=== PATIENT | male | born 1960 | race Caucasian/White ===

== ENCOUNTER 2020-08-01 11:00 | Outpatient (RCR) | payer BC | END 2020-09-20 09:00 | disposition home or self-care (01) | PROVIDERS: ATTEND Orthopaedic Surgery | DX: Z96.651 Presence of right artificial knee joint (principal) ==

== ENCOUNTER 2020-11-23 17:56 | Emergency (ER) | payer BC ==
[~2020-11-23] VITALS: Ht 170.1 cm; Wt 102.0 kg
[2020-11-23] MEDS ORDERED: LACTATED RINGERS 1,000 ML IV STA (18:58)
[2020-11-23] MEDS ORDERED: IBUPROFEN 800 MG (MOTRIN) TAB PO STA (18:58)
[2020-11-23] MEDS ORDERED: ACETAMINOPHEN 500 MG TAB (TYLENOL) PO STA (18:58)
[2020-11-23] MEDS ORDERED: ONDANSETRON 4 MG/2 ML (SDV) Z0FRAN IVP ONE (19:00)
[2020-11-23 19:12] LABS: BASOPHILS % (AUTO) 0 % (0-10); EOSINOPHILS % (AUTO) 0 % (0-10); HEMATOCRIT 44 % (40-54); HEMOGLOBIN 14.7 g/dL (13.3-17.7); LYMPHOCYTES # (AUTO) 0.7 10^3/uL (1.0-4.0); LYMPHOCYTES % (AUTO) 14 % (12-44); MEAN CORPUSCULAR HEMOGLOBIN 28 pg (25-34); MEAN CORPUSCULAR HGB CONC 33 g/dL (32-36); MEAN CORPUSCULAR VOLUME 85 fL (80-99); MEAN PLATELET VOLUME 9.6 fL (9.0-12.2); MONOCYTES # (AUTO) 0.2 10^3/uL (0.0-1.0); MONOCYTES % (AUTO) 4 % (0-12); NEUTROPHILS # (AUTO) 3.8 10^3/uL (1.8-7.8); NEUTROPHILS % (AUTO) 81 % (42-75); PLATELET COUNT 174 10^3/uL (130-400); WHITE BLOOD COUNT 4.7 10^3/uL (4.3-11.0)
--- NOTE | 2020-11-23 19:17 | ED Respiratory ---
General Chief Complaint: Cough/Cold/Flu Symptoms Stated Complaint: COVID POSITIVE/COUGH/NAUSEA Source: patient History of Present Illness Date Seen by Provider: Nov 23, 2020 Time Seen by Provider: 18:47 Initial Comments PT ARRIVES VIA POV FROM HOME PT STATES HE BEGAN GETTING SICK WITH COVID-19 SYMPTOMS ON Thursday11/16/20 TESTED + FOR COVID-19 ON Thursday11/20/20 AT [facility] C/O NON-PRODUCTIVE COUGH C/O FEVER UP TO 104- DOES NOT THINK HE HAS HAD FEVER TODAY--TEMP IS 101 ON ARRIV AL HERE. HAS NOT TAKEN ANYTHING FOR FEVER OR OTHER SYMPTOMS TODAY C/O NAUSEA, NO VOMITING C/O DIARRHEA X 2-3 TODAY NO ABDOMINAL PAIN PT IS ABLE TO DRINK LIQUIDS OK PT IS VOIDING A NORMAL AMOUNT C/O BODY ACHES C/O FATIGUE NO SORE THROAT NO SHORTNESS OF BREATH NO CHEST PAIN NO LOS OF TASTE/SMELL NO HEADACHE NO SORE THROAT SON HAS BEEN VISITING FROM [place], AND HE GOT SICK FIRST, THEN PT GOT SICK AND THEN PT'S GOT SICK SON AND BOTH TESTED + FOR COVID-19 WELL PT HAS NOT HAD COVID-19 VACCINE HAS NOT SOUGHT CARE UNTIL TONIGHT SYMPTOMS NO DIFFERENT TONIGHT IN ANY WAY STATES "JUST NOT GETTING OVER IT" HAS NOT BEEN TAKING ANYTHING FOR COUGH ONLY MEDICATIONS HE HAS TAKE AT ALL HAVE BEEN TYLENOL And MOTRIN ONLY CHRONIC ILLNESS IS HYPOTHYROIDISM PCP: ISHAN Allergies and Home Medications Allergies Coded Allergies: No Known Drug Allergies (Unverified , 11/23/20) Home Medications Azithromycin 500 Mg Tablet, 500 MG PO DAILY Prescribed by: GRETA GUZMAN on 11/23/202032 Benzonatate 100 Mg Capsule, 200 MG PO TID Prescribed by: GRETA GUZMAN on 11/23/202032 Cefdinir 300 Mg Capsule, 300 MG PO BID Prescribed by: GRETA GUZMAN on 11/23/202032 Guaifenesin/Dextromethorphan 1 Each Tbmp.12hr, 1 EACH PO BID Prescribed by: GRETA GUZMAN on 11/23/202032 Ondansetron 4 Mg Tab.rapdis, 4 MG PO Q4H Prescribed by: GRETA GUZMAN on 11/23/202032 Patient Home Medication List Home Medication List Reviewed: Yes Review of Systems Review of Systems Constitutional: see HPI, chills, diaphoresis, fever, malaise EENTM: see HPI, nose congestion Respiratory: see HPI, cough; No short of breath, No wheezing Cardiovascular: no symptoms reported; No chest pain, No edema, No palpitations, No syncope Gastrointestinal: see HPI; No abdominal pain; diarrhea, loss of appetite, n ausea; No vomiting Genitourinary: no symptoms reported; No decreased output Musculoskeletal: see HPI (BODY ACHES) Skin: no symptoms reported; No rash Psychiatric/Neurological: No Symptoms Reported Hematologic/Lymphatic: No Symptoms Reported Immunological/Allergic: no symptoms reported Past Pgkufua-Wbfeqy-Ctlljw Hx Patient Social History Tobacco Use?: No Smoking Status: Never a Smoker Smokeless Tobacco Frequency: Never a User Use of E-Cig and/or Vaping Elpidio: Never a User Substance use?: No Alcohol Use?: No Past Medical History Surgery/Hospitalization HX: RIGHT TOTAL KNEE REPLACEMENT Surgeries: Yes Joint Replacement, Orthopedic Respiratory: Yes (USED TO GET BRONCHITIS AND HAD PNEUMONIA ONCE--YEARS AGO) Cardiac: No Neurological: No Reproductive Disorders: Yes (E.D.) Genitourinary: Yes (E.D.) Gastrointestinal: No Musculoskeletal: Yes (RIGHT TOTAL KNEE REPLACEMENT) Arthritis Endocrine: Yes Hypothyroidsim HEENT: No Cancer: No Psychosocial: No Integumentary: No Blood Disorders: No Physical Exam Vital Signs - First Documented 11/23/20 18:45 Temp 38.8 Pulse 95 Resp 22 B/P (MAP) 109/67 (81) Pulse Ox 95 O2 Delivery Room Air Capillary Refill : Height: '" Weight: lbs. oz. kg; BMI Method: General Appearance: WD/WN, no apparent distress, other (DOES NOT APPEAR ILL OR TO BE IN ANY DISCOMFORT OR DISTRESS. NO COUGH NOTED. 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, no motor/sensory deficits, alert, normal mood/affect, oriented x 3 Skin: normal color, warm/dry; No rash Focused Exam Lactate Level 11/23/20 18:55: Lactic Acid Level 0.75 Lactic Acid Level Laboratory Tests Test 11/23/20 18:55 Lactic Acid Level 0.75 MMOL/L (0.50-2.00) Progress/Results/Core Measures Suspected Sepsis SIRS Temperature: Pulse: Respiratory Rate: Laboratory Tests 11/23/20 18:55: White Blood Count 4.7 Blood Pressure / Mean: 11/23/20 18:55: Lactic Acid Level 0.75 Laboratory Tests 11/23/20 18:55: Creatinine 0.97, INR Comment 1.0, Platelet Count 174, Total Bilirubin 0.3 Results/Orders Lab Results Laboratory Tests Test 11/23/20 18:55 Range/Units White Blood Count 4.7 4.3-11.0 10^3/uL Red Blood Count 5.22 4.30-5.52 10^6/uL Hemoglobin 14.7 13.3-17.7 g/dL Hematocrit 44 40-54 % Mean Corpuscular Volume 85 80-99 fL Mean Corpuscular Hemoglobin 28 25-34 pg Mean Corpuscular Hemoglobin Concent 33 32-36 g/dL Red Cell Distribution Width 14.5 10.0-14.5 % Platelet Count 174 130-400 10^3/uL Mean Platelet Volume 9.6 9.0-12.2 fL Immature Granulocyte % (Auto) 1 % Neutrophils (%) (Auto) 81 H 42-75 % Lymphocytes (%) (Auto) 14 12-44 % Monocytes (%) (Auto) 4 0-12 % Eosinophils (%) (Auto) 0 0-10 % Basophils (%) (Auto) 0 0-10 % Neutrophils # (Auto) 3.8 1.8-7.8 10^3/uL Lymphocytes # (Auto) 0.7 L 1.0-4.0 10^3/uL Monocytes # (Auto) 0.2 0.0-1.0 10^3/uL Eosinophils # (Auto) 0.0 0.0-0.3 10^3/uL Basophils # (Auto) 0.0 0.0-0.1 10^3/uL Immature Granulocyte # (Auto) 0.0 0.0-0.1 10^3/uL Erythrocyte Sedimentation Rate 20 0-30 MM/HR Prothrombin Time 13.0 12.2-14.7 SEC INR Comment 1.0 0.8-1.4 Activated Partial Thromboplast Time 38 H 24-35 SEC D-Dimer 2.08 H 0.00-0.49 UG/ML Sodium Level 133 L 135-145 MMOL/L Potassium Level 4.0 3.6-5.0 MMOL/L Chloride Level 103 98-107 MMOL/L Carbon Dioxide Level 22 21-32 MMOL/L Anion Gap 8 5-14 MMOL/L Blood Urea Nitrogen 12 7-18 MG/DL Creatinine 0.97 0.60-1.30 MG/DL Estimat Glomerular Filtration Rate 78 BUN/Creatinine Ratio 12 Glucose Level 124 H 70-105 MG/DL Lactic Acid Level 0.75 0.50-2.00 MMOL/L Calcium Level 8.1 L 8.5-10.1 MG/DL Corrected Calcium 8.3 L 8.5-10.1 MG/DL Magnesium Level 2.2 1.6-2.4 MG/DL Total Bilirubin 0.3 0.1-1.0 MG/DL Aspartate Amino Transf (AST/SGOT) 46 H 5-34 U/L Alanine Aminotransferase (ALT/SGPT) 23 0-55 U/L Alkaline Phosphatase 62 40-136 U/L Lactate Dehydrogenase 406 H 125-220 U/L Total Creatine Kinase 331 H 30-200 U/L Creatine Kinase MB 1.4 <6.6 NG/ML Myoglobin 202.7 H 10.0-92.0 NG/ML Troponin I < 0.028 <0.028 NG/ML C-Reactive Protein High Sensitivity 5.98 H 0.00-0.50 MG/DL B-Type Natriuretic Peptide 12.4 <100.0 PG/ML Total Protein 6.9 6.4-8.2 GM/DL Albumin 3.7 3.2-4.5 GM/DL Procalcitonin 0.07 <0.10 NG/ML My Orders Orders - GRETA GUZMAN DO Ed Iv/Invasive Line Start (11/23/20 18:45) Ekg Tracing (11/23/20 18:45) O2 (11/23/20 18:45) Monitor-Rhythm Ecg Trace Only (11/23/20 18:45) BNP (11/23/20 18:45) Cbc With Automated Diff (11/23/20 18:45) Comprehensive Metabolic Panel (11/23/20 18:45) Creatine Kinase (11/23/20 18:45) Creatine Kinase Mb (11/23/20 18:45) Hs C Reactive Protein (11/23/20 18:45) Fibrin Degradation Products (11/23/20 18:45) Lactic Acid Analyzer (11/23/20 18:45) Magnesium (11/23/20 18:45) Protime With Inr (11/23/20 18:45) Partial Thromboplastin Time (11/23/20 18:45) Blood Culture (11/23/20 18:45) Erythrocyte Sedimentation Rate (11/23/20 18:45) Myoglobin Serum (11/23/20 18:45) Troponin I (11/23/20 18:45) Chest 1 View, Ap/Pa Only (11/23/20 18:45) Procalcitonin (Pct) (11/23/20 18:45) LDH (11/23/20 18:45) Acetaminophen Tablet (Tylenol Tablet) (11/23/20 18:58) Ibuprofen Tablet (Motrin Tablet) (11/23/20 18:58) Ondansetron Injection (Zofran Injectio (11/23/20 19:00) Lactated Ringers (Lr 1000 Ml Iv Solution (11/23/20 18:58) Ed Iv/Invasive Line Start (11/23/20 18:58) Ct Angio Chest W (11/23/20 19:39) Ceftriaxone (Rocephin) (11/23/20 20:15) Azithromycin Tablet (Zithromax Tablet) (11/23/20 20:15) Dexamethasone Injection (Decadron Inje (11/23/20 20:15) Ceftriaxone (Rocephin) (11/23/20 20:45) Lidocaine 1% Inj 20 Ml (Xylocaine 1% Inj (11/23/20 20:45) Dexamethasone Tablet (Decadron Tablet) (11/23/20 20:45) Dexamethasone Tablet (Decadron Tablet) (11/23/20 20:44) Ceftriaxone (Rocephin) (11/23/20 20:44) Lidocaine 1% Inj 20 Ml (Xylocaine 1% Inj (11/23/20 20:44) Medications Given in ED Current Medications Medications Dose Ordered Sig/Myla Route Start Time Stop Time Status Last Admin Dose Admin Azithromycin 500 mg ONCE ONCE PO 11/23/20 20:15 11/23/20 20:16 DC 11/23/20 20:49 500 MG Ceftriaxone Sodium 1,000 mg ONCE ONCE IM 11/23/20 20:45 11/23/20 20:46 DC 11/23/20 20:50 1,000 MG Lidocaine HCl 2.1 ml ONCE ONCE INJ 11/23/20 20:45 11/23/20 20:46 DC 11/23/20 20:50 2.1 ML Ondansetron HCl 4 mg ONCE ONCE IVP 11/23/20 19:00 11/23/20 19:01 DC 11/23/20 19:07 4 MG Vital Signs/I&O 11/23/20 11/23/20 11/23/20 18:45 19:07 20:59 Temp 38.8 38.8 Pulse 95 84 Resp 22 20 B/P (MAP) 109/67 (81) 98/65 (81) Pulse Ox 95 94 O2 Delivery Room Air Capillary Refill : Progress Note : Progress Note PLACED IN ISOLATION ROOM] PPE WORN AT ALL TIMES NO DETERIORATION IN PT'S CONDITION DURING ER STAY PT FEELS COMFORTABLE GOING HOME PT WOULD BE A CANDIDATE FOR REGEN-COV, BASED ON AGE AND BMI > 25, AND HE IS AGREEABLE TO THIS. OUTPATIENT ORDERS WRITTEN. ECG Initial ECG Impression Date: Nov 23, 2020 Initial ECG Impression Time: 19:11 Initial ECG Rate: 91 Initial ECG Rhythm: Normal Sinus Initial ECG Comparisson: No Previous ECG Available Diagnostic Imaging Comments CXR--PER RADIOLOGIST REPORT IMPRESSION: 1. Patchy bilateral multifocal lung consolidation which would be consistent with provided history of Covid 19 pneumonia/pneumoni CT CHEST ANGIOGRAM--PER RADIOLOGIST REPORT AT 2017 CT CHEST. 1. Multifocal patchy bilateral lung consolidation consistent with provided history of Covid pneumonia/pneumonitis. 2. No identified pulmonary embolus. Reviewed: Reviewed by Me Departure Impression Primary Impression: Pneumonia due to COVID-19 virus Disposition: HOME, SELF-CARE Condition: Stable Departure-Patient Inst. Referrals: SRINIVAS MILTON MD (PCP) Primary Care Physician [facility] [place] Instructions: REGEN-COV (casirivimab and imdevimab) FDA Fact Sheet, COVID-19 ED, Preventing the Spread of an Infectious Disease, Atypical Pneumonia (Mycoplasma and Viral) (DC), Recovery After COVID-19 Add. Discharge Instructions: LOTS OF CLEAR LIQUIDS--WATER, BROTH, JELLO, GATORADE TYLENOL 1 GRAM /MOTRIN 800 MG 4 TIMES A DAY NEEDED FOR PAIN OR FEVER CALL ON THURSDAY TO SCHEDULE REGEN-COV INFUSION RETURN TO ER IF YOUR SYMPTOMS WORSEN FOLLOW UP WITH YOUR DR NEXT WEEK FOR FURTHER CARE QUARANTINE YOURSELF AND ALL HOUSEHOLD MEMBERS FOR 2 WEEKS All discharge instructions reviewed with patient and/or family. Voiced understanding. Scripts Guaifenesin/Dextromethorphan (Mucinex Dm ER 1,200-60 mg Tab) 1 Each Tbmp.12hr 1 EACH PO BID, #20 EA Prov: GRETA GUZMAN DO 11/23/20 Benzonatate (TESSALON PERLES) 100 Mg Capsule 200 MG PO TID, #30 CAP Prov: GRETA GUZMAN DO 11/23/20 Ondansetron (Ondansetron Odt) 4 Mg Tab.rapdis 4 MG PO Q4H for Nausea/Vomiting, #10 TAB Prov: GRETA GUZMAN DO 11/23/20 Azithromycin (Zithromax) 500 Mg Tablet 500 MG PO DAILY for 5 Days, #5 TAB Prov: GRETA GUZMAN DO 11/23/20 Cefdinir (Cefdinir) 300 Mg Capsule 300 MG PO BID, #20 CAP Prov: GRETA GUZMAN DO 11/23/20 GRETA GUZMAN DO Nov 23, 2020 19:17
[2020-11-23 19:23] LABS: FIBRIN DEGRADATION PRODUCTS 2.08 UG/ML (0.00-0.49)
[2020-11-23 19:29] LABS: ERYTHROCYTE SEDIMENTATION RATE 20 MM/HR (0-30)
[2020-11-23 19:36] LABS: ALANINE AMINOTRANSFERASE 23 U/L (0-55); ALBUMIN 3.7 GM/DL (3.2-4.5); ALKALINE PHOSPHATASE 62 U/L (40-136); BILIRUBIN,TOTAL 0.3 MG/DL (0.1-1.0); BUN/CREATININE RATIO 12; CALCIUM 8.1 MG/DL (8.5-10.1); CARBON DIOXIDE 22 MMOL/L (21-32); CHLORIDE 103 MMOL/L (98-107); CREATINE KINASE 331 U/L (30-200); CREATININE SERUM 0.97 MG/DL (0.60-1.30); GFR ESTIMATED 78; GLUCOSE 124 MG/DL (70-105); SODIUM 133 MMOL/L (135-145); TOTAL PROTEIN 6.9 GM/DL (6.4-8.2)
[2020-11-23 19:56] LABS: CREATINE KINASE MB 1.4 NG/ML (<6.6)
[2020-11-23 20:10] LABS: MAGNESIUM 2.2 MG/DL (1.6-2.4)
--- NOTE | 2020-11-23 20:14 | Diagnostic Imaging Report ---
PROCEDURE: CT angiography of the chest with contrast. TECHNIQUE: Multiple contiguous axial images were obtained through the chest after uneventful bolus administration of intravenous contrast. 3D reconstructed CTA MIP acquisitions were also performed. Auto Exposure Controls were utilized during the CT exam to meet ALARA standards for radiation dose reduction. DATE: November 23, 2020. COMPARISON: Chest radiograph November 23, 2020. INDICATION: 60-year-old male, Covid positive. Cough. FINDINGS: There is multifocal patchy bilateral alveolar consolidation in the lungs. There is no identified pulmonary nodule or lung mass. There is no pneumothorax. There is no pleural effusion. The central airways are patent. There is air in the main pulmonary artery likely relating to venous access. There are some motion limitations of the exam. There is no identified pulmonary embolus. The main pulmonary artery is normal in caliber. The heart is not enlarged. There is no pericardial effusion. There is no identified abnormally enlarged mediastinal, hilar, or axillary lymph node which meets CT size criteria for adenopathy. There is an incompletely imaged low-attenuation left renal lesion on axial image 172 measuring 3.8 cm in size with internal attenuation consistent with a benign cyst in its imaged portions. There are additional benign left renal cysts which are smaller in size. There is no identified acute bony abnormality. IMPRESSION: CT CHEST. 1. Multifocal patchy bilateral lung consolidation consistent with provided history of Covid pneumonia/pneumonitis. 2. No identified pulmonary embolus. Dictated by: Dictated on workstation # [id number]
[2020-11-23] MEDS ORDERED: AZITHROMYCIN 250 MG TAB (ZITHROMAX) PO ONE (20:15)
[2020-11-23] MEDS ORDERED: cefTRIAXone 1,000 MG in WATER (STERILE) FOR INJECTION 10 ML IV ONE (20:15)
--- NOTE | 2020-11-23 20:25 | Diagnostic Imaging Report ---
EXAMINATION: Chest radiograph, portable AP view. DATE: 11/23/2020 7:59 PM INDICATION: 60-year-old male, Covid positive. Cough. COMPARISON: None. FINDINGS: There is multifocal patchy bilateral lung consolidation. There is no identified pneumothorax or large pleural effusion. Heart size and mediastinal contours are unremarkable. IMPRESSION: 1. Patchy bilateral multifocal lung consolidation which would be consistent with provided history of Covid 19 pneumonia/pneumonitis. Dictated by: Dictated on workstation # [id number]
[2020-11-23] MEDS ORDERED: ONDA4TAB11 PO (20:33)
[2020-11-23] MEDS ORDERED: CEFD300C3 PO (20:33)
[2020-11-23] MEDS ORDERED: GUAI1TBM19 PO (20:33)
[2020-11-23] MEDS ORDERED: AZIT500T PO (20:33)
[2020-11-23] MEDS ORDERED: BENZ100C18 PO (20:33)
[2020-11-23] MEDS ORDERED: cefTRIAXone 1,000 MG VIAL ONE (20:44)
[2020-11-23] MEDS ORDERED: LIDOCAINE 1% INJ 20 ML 20 ML VIAL ONE (20:44)
[2020-11-23] MEDS ORDERED: dexAMETHasone 6 MG TAB (DECADRON) ONE (20:44)
[2020-11-23] MEDS ORDERED: dexAMETHasone 6 MG TAB (DECADRON) PO SCH (20:45)
[2020-11-23] MEDS ORDERED: LIDOCAINE 1% INJ 20 ML 20 ML VIAL INJ ONE (20:45)
[2020-11-23] MEDS ORDERED: cefTRIAXone 1,000 MG VIAL IM ONE (20:45)
[2020-11-23 20:59] VITALS: BP 98/65
== END 2020-11-23 20:59 | disposition home or self-care (01) ==
LOC: EDUNIT# 17:56 → ER 17:58
DX: U07.1 COVID-19 (principal); J12.82 Pneumonia due to coronavirus disease 2019
CPT/HCPCS: 36415; 71045; 71275; 80053; 82550; 82553; 83605; 83615; 83735; 83874; 83880; 84145; 84484; 85025; 85379; 85610; 85652; 85730; 86141; 87040; 93041

== ENCOUNTER 2020-11-26 13:02 | Inpatient (IN) | payer BC ==
[~2020-11-26] VITALS: Ht 170.1 cm; Wt 133.9 kg
[~2020-11-26 13:02] MED LIST changes: -AZIT500T9 PO; -BENZ-36 PO; -CASIRIVIMAB/IMDEVIMAB 1,200 MG in NS (IVPB) 250 ML IV ONE; -CHOL10007 PO; -EPINEPHrine INJECTION 1 MG/ML AMP IM PRN; -FISH1CAP15 PO; -LEVO25TA5 PO; -PANTOPRAZOLE 40 MG (PROTONIX) VIAL IV SCH; -POTA99TA18 PO; -TADA5TAB3 PO; -VITA100T6 PO; -diphenhydrAMINE 50 MG/ML INJ (BENADRYL) IV PRN
[2020-11-26] MEDS ORDERED: NS IV 1000 ML 1,000 ML IV SCH (13:15)
--- NOTE | 2020-11-26 13:35 | ED Cough/URI ---
General Chief Complaint: Respiratory Problems Stated Complaint: COVID POSITIVE Source: patient Exam Limitations: no limitations History of Present Illness Date Seen by Provider: Nov 26, 2020 Time Seen by Provider: 13:33 Initial Comments To ER from outpatient [facility] with reports of hypotension and hypoxia. He did not receive the infusion. He was found to be 80s over 50s and 86% on room air upon arrival and was brought to the emergency room for further evaluation. Timing/Duration: constant Severity/Quality: moderate Associated Symptoms: cough, fever/chills, shortness of breath Allergies and Home Medications Allergies Coded Allergies: No Known Drug Allergies (Unverified , 11/23/20) Home Medications Azithromycin 500 Mg Tablet, 500 MG PO DAILY Prescribed by: GRETA GUZMAN on 11/23/202032 Benzonatate 100 Mg Capsule, 200 MG PO TID Prescribed by: GRETA GUZMAN on 11/23/202032 Cefdinir 300 Mg Capsule, 300 MG PO BID Prescribed by: GRETA GUZMAN on 11/23/202032 Guaifenesin/Dextromethorphan 1 Each Tbmp.12hr, 1 EACH PO BID Prescribed by: GRETA GUZMAN on 11/23/202032 Ondansetron 4 Mg Tab.rapdis, 4 MG PO Q4H Prescribed by: GRETA GUZMAN on 11/23/202032 Patient Home Medication List Home Medication List Reviewed: Yes Review of Systems Review of Systems Constitutional: see HPI, fever, malaise EENTM: see HPI Respiratory: see HPI, cough Cardiovascular: no symptoms reported Genitourinary: no symptoms reported Musculoskeletal: no symptoms reported Skin: no symptoms reported Psychiatric/Neurological: No Symptoms Reported Hematologic/Lymphatic: No Symptoms Reported Immunological/Allergic: no symptoms reported Past Cucudoi-Rmepba-Qsgvty Hx Past Medical History Surgery/Hospitalization HX: RIGHT TOTAL KNEE REPLACEMENT Surgeries: Yes Joint Replacement, Orthopedic Respiratory: Yes (USED TO GET BRONCHITIS AND HAD PNEUMONIA ONCE--YEARS AGO) Cardiac: No Neurological: No Reproductive Disorders: Yes (E.D.) Genitourinary: Yes (E.D.) Gastrointestinal: No Musculoskeletal: Yes (RIGHT TOTAL KNEE REPLACEMENT) Arthritis Endocrine: Yes Hypothyroidsim HEENT: No Cancer: No Psychosocial: No Integumentary: No Blood Disorders: No Physical Exam Vital Signs - First Documented 11/26/20 13:02 Temp 36.4 Pulse 72 Resp 24 B/P (MAP) 82/56 (65) Pulse Ox 93 O2 Delivery Nasal Cannula O2 Flow Rate 6.00 Capillary Refill : Height: '" Weight: lbs. oz. kg; 35.00 BMI Method: General Appearance: WD/WN, no apparent distress, other (Blood pressure is 82/56 heart rate 66 oxygen saturation 89% on 5 L.) HEENT: PERRL/EOMI, normal ENT inspection Neck: non-tender, full range of motion Respiratory: normal breath sounds, no respiratory distress, no accessory muscle use Gastrointestinal: normal bowel sounds, non tender Neurologic/Psychiatric: alert, normal mood/affect, oriented x 3 Skin: normal color, warm/dry Progress/Results/Core Measures Suspected Sepsis SIRS Temperature: Pulse: Respiratory Rate: Laboratory Tests 11/26/20 13:30: White Blood Count 7.2 Blood Pressure / Mean: Laboratory Tests 11/26/20 13:30: Creatinine 0.98, Platelet Count 207, Total Bilirubin 0.5 Results/Orders Lab Results Laboratory Tests Test 11/26/20 13:30 Range/Units White Blood Count 7.2 4.3-11.0 10^3/uL Red Blood Count 4.96 4.30-5.52 10^6/uL Hemoglobin 13.8 13.3-17.7 g/dL Hematocrit 42 40-54 % Mean Corpuscular Volume 84 80-99 fL Mean Corpuscular Hemoglobin 28 25-34 pg Mean Corpuscular Hemoglobin Concent 33 32-36 g/dL Red Cell Distribution Width 15.0 H 10.0-14.5 % Platelet Count 207 130-400 10^3/uL Mean Platelet Volume 9.3 9.0-12.2 fL Immature Granulocyte % (Auto) 1 % Neutrophils (%) (Auto) 85 H 42-75 % Lymphocytes (%) (Auto) 12 12-44 % Monocytes (%) (Auto) 1 0-12 % Eosinophils (%) (Auto) 0 0-10 % Basophils (%) (Auto) 0 0-10 % Neutrophils # (Auto) 6.1 1.8-7.8 10^3/uL Lymphocytes # (Auto) 0.9 L 1.0-4.0 10^3/uL Monocytes # (Auto) 0.1 0.0-1.0 10^3/uL Eosinophils # (Auto) 0.0 0.0-0.3 10^3/uL Basophils # (Auto) 0.0 0.0-0.1 10^3/uL Immature Granulocyte # (Auto) 0.1 0.0-0.1 10^3/uL D-Dimer 3.71 H 0.00-0.49 UG/ML Sodium Level 132 L 135-145 MMOL/L Potassium Level 3.7 3.6-5.0 MMOL/L Chloride Level 101 98-107 MMOL/L Carbon Dioxide Level 19 L 21-32 MMOL/L Anion Gap 12 5-14 MMOL/L Blood Urea Nitrogen 22 H 7-18 MG/DL Creatinine 0.98 0.60-1.30 MG/DL Estimat Glomerular Filtration Rate 78 BUN/Creatinine Ratio 22 Glucose Level 100 70-105 MG/DL Calcium Level 7.7 L 8.5-10.1 MG/DL Corrected Calcium 8.3 L 8.5-10.1 MG/DL Total Bilirubin 0.5 0.1-1.0 MG/DL Aspartate Amino Transf (AST/SGOT) 93 H 5-34 U/L Alanine Aminotransferase (ALT/SGPT) 64 H 0-55 U/L Alkaline Phosphatase 57 40-136 U/L C-Reactive Protein High Sensitivity 14.36 H 0.00-0.50 MG/DL Total Protein 6.2 L 6.4-8.2 GM/DL Albumin 3.3 3.2-4.5 GM/DL Procalcitonin 0.16 H <0.10 NG/ML My Orders Orders - WILLI DAMON DIRECTOR OF ANNUAL GIVING Cbc With Automated Diff (11/26/20 13:14) Comprehensive Metabolic Panel (11/26/20 13:14) Ua Culture If Indicated (11/26/20 13:14) Hs C Reactive Protein (11/26/20 13:14) Procalcitonin (Pct) (11/26/20 13:14) Ed Iv/Invasive Line Start (11/26/20 13:14) Chest 1 View, Ap/Pa Only (11/26/20 13:14) Ns Iv 1000 Ml (Sodium Chloride 0.9%) (11/26/20 13:15) Dexamethasone Injection (Decadron Inje (11/26/20 13:15) Ondansetron Injection (Zofran Injectio (11/26/20 13:45) Ondansetron Injection (Zofran Injectio (11/26/20 13:42) Ns Iv 1000 Ml (Sodium Chloride 0.9%) (11/26/20 13:43) Medications Given in ED Current Medications Medications Dose Ordered Sig/Myla Route Start Time Stop Time Status Last Admin Dose Admin Ondansetron HCl 8 mg ONCE ONCE IVP 11/26/20 13:45 11/26/20 13:46 DC 11/26/20 13:47 8 MG Vital Signs/I&O 11/26/20 13:02 Temp 36.4 Pulse 72 Resp 24 B/P (MAP) 82/56 (65) Pulse Ox 93 O2 Delivery Nasal Cannula O2 Flow Rate 6.00 Capillary Refill : Diagnostic Imaging Diagonstic Imaging: Xray Plain Films/CT/US/NM/MRI: chest Comments NAME: [facility] REC#: [id number] PT STATUS: REG ER : 1960 PHYSICIAN: WILLI DAMON APRN ADMIT DATE: 11/26/20/ER Draft Date of Exam:11/26/20 CHEST 1 VIEW, AP/PA ONLY EXAMINATION: Chest 1 view HISTORY: Covid 19. COMPARISON: 11/23/2020. FINDINGS: There are severe bilateral airspace opacities which have increased from the prior exam. No pneumothorax. No pleural effusion. The heart size is normal. IMPRESSION: Severe bilateral airspace opacities, decreased from the prior exam. Dictated on workstation # [id number] Dict: 11/26/20 1356 Trans: 11/26/20 1359 [id number] Interpreted by: YOHANNES MOSES MD Electronically signed by: Departure Communication (Admissions) 9084-blood pressure 116/60 heart rate 71 respiratory rate 25 SPO2 95% on BiPAP. Spoke to Dr. Nicole will admit on dexamethasone and remdesivir. Impression Primary Impression: Pneumonia due to COVID-19 virus Disposition: ADMITTED INPATIENT Condition: Stable Admissions Decision to Admit Reason: Admit from ER (General) Decision to Admit/Date: Nov 26, 2020 Time/Decision to Admit Time: 17:09 Departure-Patient Inst. Referrals: [facility] (PCP/Family) Primary Care Physician WILLI DAMON APRN Nov 26, 2020 13:35
[2020-11-26] MEDS ORDERED: ONDANSETRON 4 MG/2 ML (SDV) Z0FRAN ONE (13:42)
[2020-11-26] MEDS ORDERED: NS IV 1000 ML 1,000 ML ONE (13:43)
[2020-11-26] MEDS ORDERED: ONDANSETRON 4 MG/2 ML (SDV) Z0FRAN IVP ONE (13:45)
[2020-11-26 13:52] LABS: BASOPHILS % (AUTO) 0 % (0-10); EOSINOPHILS % (AUTO) 0 % (0-10); HEMATOCRIT 42 % (40-54); HEMOGLOBIN 13.8 g/dL (13.3-17.7); LYMPHOCYTES # (AUTO) 0.9 10^3/uL (1.0-4.0); LYMPHOCYTES % (AUTO) 12 % (12-44); MEAN CORPUSCULAR HEMOGLOBIN 28 pg (25-34); MEAN CORPUSCULAR HGB CONC 33 g/dL (32-36); MEAN CORPUSCULAR VOLUME 84 fL (80-99); MEAN PLATELET VOLUME 9.3 fL (9.0-12.2); MONOCYTES # (AUTO) 0.1 10^3/uL (0.0-1.0); MONOCYTES % (AUTO) 1 % (0-12); NEUTROPHILS # (AUTO) 6.1 10^3/uL (1.8-7.8); NEUTROPHILS % (AUTO) 85 % (42-75); PLATELET COUNT 207 10^3/uL (130-400); WHITE BLOOD COUNT 7.2 10^3/uL (4.3-11.0)
--- NOTE | 2020-11-26 13:59 | Diagnostic Imaging Report ---
EXAMINATION: Chest 1 view HISTORY: Covid 19. COMPARISON: 11/23/2020. FINDINGS: There are severe bilateral airspace opacities which have increased from the prior exam. No pneumothorax. No pleural effusion. The heart size is normal. IMPRESSION: Severe bilateral airspace opacities, decreased from the prior exam. Dictated by: Dictated on workstation # [id number]
[2020-11-26 14:01] LABS: ALBUMIN 3.3 GM/DL (3.2-4.5); POTASSIUM 3.7 MMOL/L (3.6-5.0)
[2020-11-26 14:02] LABS: CALCIUM 7.7 MG/DL (8.5-10.1)
[2020-11-26 14:04] LABS: TOTAL PROTEIN 6.2 GM/DL (6.4-8.2)
[2020-11-26 14:05] LABS: BILIRUBIN,TOTAL 0.5 MG/DL (0.1-1.0)
[2020-11-26 14:07] LABS: CREATININE SERUM 0.98 MG/DL (0.60-1.30)
[2020-11-26 14:12] LABS: ABG BASE EXCESS -0.9 MMOL/L (-2.5-2.5); ABG OXYGEN SATURATION 29 % (94-100); ABG PCO2 42 MMHG (35-45); ABG PH 7.37 (7.37-7.43); ABG TCO2 25.1 MMOL/L (21.0-31.0)
[2020-11-26 14:13] LABS: ALLENS TEST POSITIVE; INSPIRED O2 10; PATIENT TEMP 36.4; VENTILATOR NO
[2020-11-26 14:14] LABS: ABG PO2 22 MMHG (79-93)
[2020-11-26 14:16] VITALS: BP 125/81
[2020-11-26] MEDS ORDERED: NS 100 ML (IVPB) BAG IV ONE (15:30)
[2020-11-26] MEDS ORDERED: IOHEXOL 350 MG/ML 100 ML (OMNIPAQUE 350) VIAL IV ONE (15:30)
[2020-11-26] MEDS ORDERED: HOLD METFORMIN - RECEIVED CONTRAST 20 ML VIAL IV SCH (15:30)
--- NOTE | 2020-11-26 16:59 | Diagnostic Imaging Report ---
PROCEDURE: CT angiography of the chest with contrast. TECHNIQUE: Multiple contiguous axial images were obtained through the chest after uneventful bolus administration of intravenous contrast. 3D reconstructed CTA MIP acquisitions were also performed. Auto Exposure Controls were utilized during the CT exam to meet ALARA standards for radiation dose reduction. INDICATION: COVID infection and dyspnea. COMPARISON: 11/23/2020. FINDINGS: There is good opacification of pulmonary arteries without intraluminal filling defect identified. The thoracic aorta is of normal caliber. There has been worsening of mixed ground-glass and alveolar densities throughout both lungs with a predominant upper and dependent distribution. There is relative sparing of the anterior aspect of the mid and lower lungs. No significant pleural or pericardial fluid is identified. Mildly prominent mediastinal and right hilar adenopathy has not significantly changed. Largest lymph node is in the right hilum measuring 2.3 x 1.6 cm. IMPRESSION: Worsening diffuse pulmonary opacities compatible with progressive pneumonitis and/or atypical pneumonia. There is no CTA evidence of pulmonary embolism or other great vessel abnormality. Dictated by: Dictated on workstation # [id number]
[2020-11-26] MEDS ORDERED: REMDESIVIR 200 MG/NS 250 ML IVPB IV ONE ×2 (18:00)
--- NOTE | 2020-11-26 18:09 | Tele-ICU Consult ---
History of Present Illness History of Present Illness Date Seen by Provider: Nov 26, 2020 Time Seen by Provider: 18:08 Date of Admission Allergies and Home Medications Allergies Coded Allergies: No Known Drug Allergies (Unverified , 11/23/20) Home Medications Azithromycin 500 Mg Tablet, 500 MG PO DAILY Prescribed by: GRETA GUZMAN on 11/23/202032 Benzonatate 100 Mg Capsule, 200 MG PO TID Prescribed by: GRETA GUZMAN on 11/23/202032 Cefdinir 300 Mg Capsule, 300 MG PO BID Prescribed by: GRETA GUZMAN on 11/23/202032 Guaifenesin/Dextromethorphan 1 Each Tbmp.12hr, 1 EACH PO BID Prescribed by: GRETA GUZMAN on 11/23/202032 Ondansetron 4 Mg Tab.rapdis, 4 MG PO Q4H Prescribed by: GRETA GUZMAN on 11/23/202032 Past Medical/Social/Family Hx Patient Social History Tobacco Use?: No Use of E-Cig and/or Vaping dev: No Substance use?: No Alcohol Use?: No Pt stated abuse/neglect: No Immunizations Up To Date Influenza Vaccine Up-to-Date: No; Not Current Tetanus Booster (TDap): Less Than 5 Years Current Status Advance Directives: No Primary Language: Setswana Preferred Spoken Language: Setswana Implanted or Applied Medical D: None Review of Systems Constitutional: see HPI Sepsis Event Evaluation Height, Weight, BMI Height: '" Weight: lbs. oz. kg; 34.00 BMI Method: Exam Exam Patient acknowledged, consented, and participated in this virtual visit which was conducted using real time audio/video Vital Signs Date Time Temp Pulse Resp B/P (MAP) Pulse Ox O2 Delivery O2 Flow Rate FiO2 11/26/20 17:38 79 24 109/76 96 OxyMask 10.00 11/26/20 14:16 70 22 100 45.00 11/26/20 13:02 36.4 72 24 82/56 (65) 93 Nasal Cannula 6.00 Height & Weight Height: '" Weight: lbs. oz. kg; 34.00 BMI Method: General Appearance: No Apparent Distress Capillary Refill: Less Than 3 Seconds Gastrointestinal: normal bowel sounds, non tender Results Lab Laboratory Tests 11/26/20 13:30 Assessment/Plan Assessment/Plan (Tele-ICU Physician , consultation) Available chart/ vitals / labs / Images reviewed H&P is from ER notes Patient's information available about PMH, Shx, Fhx allergy reviewed in EMR. ROS as per chart and RN report Patient admitted 11/26 from ER with hypotension 80/50 and 86% RA 9 covid ) Now in ICU, hemodynamically stable Video assessment done using teleICU camera, rest of exam as per RN Discussed with RN. Consultants: A/P Acute hypoxic resp failure with COVID PNA , no PE on CT 11/23 and 11/26 On CPAP 10 , rr 25 , TV 500s -prone position if able - conservative fluid strategy (aim for even or negative fluid balance - monitor carefully - s/p contrast boluses x2 RAOG-Dyuxwnfsewg-7/COVID-19 infection- ( symptoms11/16 , Dx 11/20 ) -Remdesivir CRP 14 -Steroids IV - started -Hypercoagulable state , DDIMER 3.7 on 11/26 -> lovenox ppx dose , follow D dimer ( no evidence of large PE on CT 11/23 and 11/26 ) Monitor for superimposed bact PNA -PCT 0.16 transaminitis likely due to COVID-19. Lines : periph, (Central Line Necessity Reviewed) Gaston: OG: Nutrition: Analgesia: na Anxiety/ delirium na VTE Prophylaxis: lovenox 40 Stress Ulcer Prophylaxis: taking po Glycemic Control: Plans in collaboration with bedside consultants and IM MDs. Discussed with RN to reach out if any questions or concerns A total of 32 minutes of critical care time was devoted to this patient today, required to treat and/or prevent further deterioration of critical care condition ( as above KAYE PEDERSEN MD Nov 26, 2020 18:08
[2020-11-26] MEDS ORDERED: LACTATED RINGERS 1,000 ML IV ONE (18:14)
[2020-11-26] MEDS: LACTATED RINGERS 1,000 ML IV SCH (18:44)
[2020-11-26] MEDS: ENOXAPARIN 40 MG/0.4 ML (LOVENOX) SYR SC SCH (18:44)
--- NOTE | 2020-11-26 18:49 | History & Physical-Hospitalist ---
History of Present Illness HPI/Chief Complaint Chief complaint: COVID-19 pneumonia with sepsis History present illness: This is a 60-year-old white male who was diagnosed with Covid 9 days ago who presented to the ER with shortness of breath fever and lethargy. Patient was found to have hypotension responded to aggressive IV fluids and placed on BiPAP for hypoxia. Currently it is difficult to communicate due to BiPAP. We will initiate IV antibiotics and closely monitor since he is high risk for decompensation. Source: patient Exam Limitations: clinical condition (bipap) Date Seen 11/26/20 Time Seen by a Provider: 18:30 Attending Physician Luz Elena Nicole DO [facility] Referring Physician Date of Admission Nov 26, 2020 at 13:57 Home Medications & Allergies Home Medications Reviewed patient Home Medication Reconciliation performed by pharmacy medication reconciliations optoelectronic technician and/or nursing. Patients Allergies have been reviewed. Allergies Allergies Coded Allergies No Known Drug Allergies (Unverified11/23/20) Past Cgrnhyl-Euutev-Tlxfwg Hx Patient Social History Marrital Status: single Employed/Student: employed Tobacco Use?: No Smoking Status: Former Smoker Use of E-Cig and/or Vaping dev: No Substance use?: No Alcohol Use?: No Pt feels they are or have been: No Immunizations Up To Date Tetanus Booster (TDap): Less Than 5 Years Current Status Advance Directives: No Primary Language: Citizen Of [place] Preferred Spoken Language: Citizen Of [place] Implanted or Applied Medical D: None Past Medical History Surgeries: Joint Replacement, Orthopedic Arthritis Hypothyroidsim Blood Disorders: No Review of Systems Constitutional: see HPI, fever, malaise, weakness Respiratory: cough, dyspnea on exertion, short of breath Physical Exam Physical Exam Vital Signs Vital Signs - First Documented 11/26/20 11/26/20 13:02 17:33 Temp 36.4 Pulse 72 Resp 24 B/P (MAP) 82/56 (65) Pulse Ox 93 O2 Delivery Nasal Cannula O2 Flow Rate 6.00 FiO2 45 Capillary Refill : Less Than 3 Seconds Height, Weight, BMI Height: '" Weight: lbs. oz. kg; 34.00 BMI Method: General Appearance: Anxious, Chronically ill, Mild Distress Eyes: Right Eye Normal Inspection, Right Eye PERRL HEENT: PERRL/EOMI, Normal ENT Inspection, Pharynx Normal, Moist Mucous Membranes Neck: Full Range of Motion, Normal Inspection, Non Tender Respiratory: Chest Non Tender, Lungs Clear, Normal Breath Sounds, No Accessory Muscle Use, No Respiratory Distress Cardiovascular: Regular Rate, Rhythm, No Edema, No Gallop, No JVD, No Murmur, Normal Peripheral Pulses Gastrointestinal: Normal Bowel Sounds, No Organomegaly, No Pulsatile Mass, Non Tender, Soft Back: Normal Inspection, No CVA Tenderness, No Vertebral Tenderness Extremity: Normal Capillary Refill, Normal Inspection, Normal Range of Motion, Non Tender, No Calf Tenderness, No Pedal Edema Neurologic/Psychiatric: Alert, Oriented x3, No Motor/Sensory Deficits, Normal Mood/Affect Skin: Normal Color, Warm/Dry Lymphatic: No Adenopathy Results Results/Procedures Labs Laboratory Tests 11/26/20 13:30 11/27/20 04:15 Patient resulted labs reviewed. Assessment/Plan Admission Diagnosis Assessment: Acute hypoxic respiratory failure COVID-19 pneumonia Hypotension Sepsis Bacterial pneumonia Hypothyroidism DJD Plan: BiPAP Supportive care Monitor closely Admission Status: Inpatient Order (span 2 midnights) Reason for Inpatient Admission: COVID-19 LUZ ELENA NICOLE DO Nov 26, 2020 18:49
[2020-11-26] MEDS ORDERED: ALBUTEROL/IPRATROP (COMBIVENT RESPIMAT) 4 GM INHALER INH SCH (19:00)
[2020-11-26] MEDS: CEFEPIME INJECTION 1,000 MG in WATER (STERILE) FOR INJECTION 10 ML IV SCH ×2 (19:45→23:30)
[2020-11-26] MEDS: AZITHROMYCIN INJECTION 500 MG in NS (IVPB) 250 ML IV SCH (19:45)
[2020-11-26] MEDS: inSUlin ASPART (NovoLOG) 1 UNIT/0.01 ML (CHARGE PER UNIT) SC SCH (21:19)
[2020-11-26 21:21] VITALS: BP 113/79
[2020-11-26] MEDS: RT-ALBUTEROL HFA 8.5 GM INHALER IH SCH (21:21)
[2020-11-27] MEDS ORDERED: PANTOPRAZOLE 40 MG (PROTONIX) VIAL ONE (02:10)
[2020-11-27] MEDS ORDERED: PANTOPRAZOLE 40 MG (PROTONIX) VIAL IV ONE (02:15)
[2020-11-27 02:50] LABS: ABG OXYGEN SATURATION 98 % (94-100); ABG PCO2 31 MMHG (35-45); ABG PH 7.38 (7.37-7.43); ABG PO2 107 MMHG (79-93); ABG TCO2 19.1 MMOL/L (21.0-31.0)
[2020-11-27 02:55] LABS: ALLENS TEST YES-POS; INSPIRED O2 45%; PATIENT TEMP 37.2; VENTILATOR NO
[2020-11-27] MEDS: RT-ALBUTEROL HFA 8.5 GM INHALER IH SCH ×4 (03:54→20:32)
[2020-11-27 04:27] LABS: BASOPHILS % (AUTO) 0 % (0-10); EOSINOPHILS % (AUTO) 0 % (0-10); HEMATOCRIT 43 % (40-54); HEMOGLOBIN 14.2 g/dL (13.3-17.7); LYMPHOCYTES # (AUTO) 0.6 10^3/uL (1.0-4.0); LYMPHOCYTES % (AUTO) 7 % (12-44); MEAN CORPUSCULAR HEMOGLOBIN 28 pg (25-34); MEAN CORPUSCULAR HGB CONC 33 g/dL (32-36); MEAN CORPUSCULAR VOLUME 85 fL (80-99); MEAN PLATELET VOLUME 9.4 fL (9.0-12.2); MONOCYTES # (AUTO) 0.2 10^3/uL (0.0-1.0); MONOCYTES % (AUTO) 2 % (0-12); NEUTROPHILS # (AUTO) 7.2 10^3/uL (1.8-7.8); NEUTROPHILS % (AUTO) 90 % (42-75); PLATELET COUNT 218 10^3/uL (130-400)
[2020-11-27 04:44] LABS: POTASSIUM 4.3 MMOL/L (3.6-5.0)
[2020-11-27 04:45] LABS: CALCIUM 7.8 MG/DL (8.5-10.1)
[2020-11-27 04:46] LABS: BAND NEUTROPHILS 2 %; NEUTROPHILS % (MANUAL) 92 %
[2020-11-27 04:47] LABS: LYMPHOCYTES % (MANUAL) 4 %; MONOCYTES % (MANUAL) 2 %; RBC MORPH NORMAL
[2020-11-27 04:50] LABS: CREATININE SERUM 0.81 MG/DL (0.60-1.30); PHOSPHORUS 2.3 MG/DL (2.3-4.7)
[2020-11-27 04:53] LABS: MAGNESIUM 2.1 MG/DL (1.6-2.4)
[2020-11-27] MEDS: POTASSIUM CL 10MEQ/50ML IVPB 50 ML IV SCH (05:12)
[2020-11-27] MEDS: MAGNESIUM 1 GM/100 ML IVPB 100 ML IV SCH (05:12)
[2020-11-27] MEDS: KCL 20 MEQ TAB (K-DUR) PO SCH (05:13)
[2020-11-27] MEDS: inSUlin ASPART (NovoLOG) 1 UNIT/0.01 ML (CHARGE PER UNIT) SC SCH ×4 (05:13→20:59)
--- NOTE | 2020-11-27 05:31 | Progress Note - Hospitalist ---
Subjective HPI/CC On Admission Date Seen by Provider: Nov 27, 2020 Time Seen by Provider: 11:00 Chief complaint: COVID-19 pneumonia with sepsis History present illness: This is a 60-year-old white male who was diagnosed with Covid 9 days ago who presented to the ER with shortness of breath fever and lethargy. Patient was found to have hypotension responded to aggressive IV fluids and placed on BiPAP for hypoxia. Currently it is difficult to communicate due to BiPAP. We will initiate IV antibiotics and closely monitor since he is high risk for decompensation. Subjective/Events-last exam Pt doing a little better Maintain on BiPAP Bicarb of 14 so checked ABG, could be metabolic type so checked lactic acid Denies any other significant problems Will try to update today Review of Systems General: Fatigue, Malaise Pulmonary: Dyspnea Focused Exam Lactate Level 11/27/20 08:32: Lactic Acid Level 0.78 Objective Exam Vital Signs Vital Signs Date Time Temp Pulse Resp B/P (MAP) Pulse Ox O2 Delivery O2 Flow Rate FiO2 11/27/20 20:32 75 22 91 65.00 11/27/20 20:00 NIV Bilevel 65 11/27/20 19:42 37.0 11/27/20 18:00 110/72 (85) Capillary Refill : Less Than 3 Seconds General Appearance: No Apparent Distress, WD/WN Respiratory: No Accessory Muscle Use, No Respiratory Distress, Decreased Breath Sounds, Other (on bipap) Neurologic/Psychiatric: Alert, Oriented x3 Results/Procedures Lab Laboratory Tests 11/27/20 04:15 Patient resulted labs reviewed. Assessment/Plan Assessment and Plan Assess & Plan/Chief Complaint Assessment: Acute hypoxic respiratory failure COVID-19 pneumonia Hypotension Sepsis Bacterial pneumonia Hypothyroidism DJD Plan: BiPAP Supportive care Monitor closely 11/27/20: Monitor ABG Monitor closely CRAISSA MARTINS DO Nov 27, 2020 05:31
[2020-11-27] MEDS: CEFEPIME INJECTION 1,000 MG in WATER (STERILE) FOR INJECTION 10 ML IV SCH ×3 (06:05→18:21)
[2020-11-27 06:58] VITALS: BP 113/74
[2020-11-27] MEDS: PANTOPRAZOLE 40 MG (PROTONIX) VIAL IV SCH (09:01)
[2020-11-27 09:10] LABS: ABG BASE EXCESS -3.5 MMOL/L (-2.5-2.5); ABG OXYGEN SATURATION 74 % (94-100); ABG PCO2 37 MMHG (35-45); ABG PH 7.37 (7.37-7.43); ABG PO2 43 MMHG (79-93); ABG TCO2 21.9 MMOL/L (21.0-31.0)
[2020-11-27 09:11] LABS: INSPIRED O2 60%; PATIENT TEMP 37.5; VENTILATOR NO
[2020-11-27] MEDS ORDERED: LEVO25TA5 PO (09:21)
[2020-11-27] MEDS ORDERED: POTA99TA18 PO (09:21)
[2020-11-27] MEDS ORDERED: CEFD300C3 PO (09:21)
[2020-11-27] MEDS ORDERED: AZIT500T9 PO (09:21)
[2020-11-27] MEDS ORDERED: BENZ-36 PO (09:21)
[2020-11-27] MEDS ORDERED: FISH1CAP15 PO (09:21)
[2020-11-27] MEDS ORDERED: VITA100T6 PO (09:21)
[2020-11-27] MEDS ORDERED: GUAI1TBM19 PO (09:21)
[2020-11-27] MEDS ORDERED: ONDA4TAB11 PO (09:21)
[2020-11-27] MEDS ORDERED: CHOL10007 PO (09:21)
[2020-11-27] MEDS ORDERED: TADA5TAB3 PO (09:21)
--- NOTE | 2020-11-27 10:05 | Tele-ICU Progress Note ---
Subjective Date Seen by a Provider: Nov 27, 2020 Time Seen by a Provider: 10:05 Sepsis Event Evaluation Height, Weight, BMI Height: '" Weight: lbs. oz. kg; 34.90 BMI Method: Focused Exam Lactate Level 11/27/20 08:32: Lactic Acid Level 0.78 Lactic Acid Level Laboratory Tests Test 11/27/20 08:32 Lactic Acid Level 0.78 MMOL/L (0.50-2.00) Exam Exam Patient acknowledged, consented, and participated in this virtual visit which was conducted using real time audio/video Vital Signs Date Time Temp Pulse Resp B/P (MAP) Pulse Ox O2 Delivery O2 Flow Rate FiO2 11/27/20 09:17 Vapotherm 40.00 100.00 11/27/20 08:04 35.7 11/27/20 07:00 80 11/27/20 06:58 81 22 92 60.00 11/27/20 06:05 NIV Bilevel 60.00 11/27/20 06:00 77 26 109/72 (84) 92 NIV Bilevel 80.00 11/27/20 05:00 74 24 103/70 (81) 95 NIV Bilevel 80.00 11/27/20 04:09 NIV Bilevel 80.00 11/27/20 04:09 NIV CPAP 55 11/27/20 04:00 89 28 111/73 (89) 89 Vapotherm 40.00 100.00 11/27/20 03:54 92 Vapotherm 35.00 80 11/27/20 03:30 Vapotherm 40.00 100.00 11/27/20 03:15 37.2 NIV CPAP 80.00 11/27/20 03:00 80 27 128/83 (94) 96 NIV CPAP 80.00 11/27/20 02:00 78 28 129/88 (100) 96 NIV CPAP 80.00 11/27/20 01:40 37.2 NIV CPAP 80.00 11/27/20 01:00 80 26 136/85 (97) 92 NIV CPAP 55.00 11/27/20 01:00 80 11/27/20 00:00 81 34 123/90 (92) 93 NIV CPAP 55.00 11/26/20 23:36 36.4 75 93 55 11/26/20 23:30 NIV CPAP 55 11/26/20 23:00 78 31 125/79 (94) 92 NIV CPAP 55.00 11/26/20 22:00 77 26 107/73 (84) 92 NIV CPAP 55.00 11/26/20 21:21 75 24 93 55.00 11/26/20 21:00 79 23 118/77 (91) 96 NIV CPAP 55.00 11/26/20 20:09 36.6 NIV CPAP 55.00 11/26/20 20:00 79 23 121/73 (89) 91 NIV CPAP 45.00 11/26/20 19:00 80 11/26/20 19:00 NIV CPAP 45 11/26/20 19:00 80 113/75 (88) 94 NIV CPAP 45.00 11/26/20 18:00 74 27 110/54 (72) 95 NIV CPAP 45.00 11/26/20 17:39 70 11/26/20 17:38 79 24 109/76 96 OxyMask 10.00 11/26/20 17:33 93 NIV CPAP 45 11/26/20 17:33 36.2 11/26/20 17:30 121/38 (65) NIV CPAP 45.00 11/26/20 14:16 70 22 100 45.00 11/26/20 13:02 36.4 72 24 82/56 (65) 93 Nasal Cannula 6.00 I & O 11/27/20 07:00 Intake Total 770 ml Output Total 2650 ml Balance -1880 ml Height & Weight Height: '" Weight: lbs. oz. kg; 34.90 BMI Method: General Appearance: Anxious, Chronically ill, Mild Distress HEENT: PERRL/EOMI, Normal ENT Inspection, Pharynx Normal, Moist Mucous Membranes Neck: Full Range of Motion, Normal Inspection, Non Tender Respiratory: Chest Non Tender, Lungs Clear, Normal Breath Sounds, No Accessory Muscle Use, No Respiratory Distress Cardiovascular: Regular Rate, Rhythm, No Edema, No Gallop, No JVD, No Murmur, Normal Peripheral Pulses Capillary Refill: Less Than 3 Seconds Gastrointestinal: normal bowel sounds, non tender Extremity: Normal Capillary Refill, Normal Inspection, Normal Range of Motion, Non Tender, No Calf Tenderness, No Pedal Edema Neurologic/Psychiatric: Alert, Oriented x3, No Motor/Sensory Deficits, Normal Mood/Affect Skin: Normal Color, Warm/Dry Lymphatic: No Adenopathy Results Lab Laboratory Tests 11/26/20 13:30 7/27/21 04:15 Assessment/Plan Assessment/Plan (Tele-ICU Physician , Progress Note ) Available chart/ vitals / labs / Images reviewed Video assessment done using teleICU camera, rest of exam as per RN Discussed with RN Events overnight : DID NOT TOLERATED VAPOTHERM, ON BIAPAP Afebrile I/O = TAVIA 1700 Drips: Pressors: , hemodynamically stable EXAM PER RN Consultants: Hospital course: 11/26 from ER with hypotension 80/50 and 86% RA ( covid ) 11/27 - VAPOTHERM 40 L 80% A/P Acute hypoxic resp failure with COVID PNA , no PE on CT 11/23 and 11/26 On CPAP 10 , rr 25 , TV 500s - PRN VAPOTHERM 40 L 80% -prone position if able - conservative fluid strategy (aim for even or negative fluid balance - monitor carefully - s/p contrast boluses x2 PEOI-Kriqtfbtkkg-3/COVID-19 infection- ( symptoms11/16 , Dx 11/20 ) -Remdesivir -Steroids IV - started -Hypercoagulable state , DDIMER 3.7 on 11/26 -> lovenox ppx dose ( no evidence of large PE on CT 11/23 and 11/26 ) Monitor for superimposed bact PNA -PCT 0.16, CEFEPIME AND Z MAX STARTED 11/26 transaminitis likely due to COVID-19. Lines : periph, (Central Line Necessity Reviewed) Gaston: OG: Nutrition: PO Analgesia: na Anxiety/ delirium na VTE Prophylaxis: lovenox 40 Stress Ulcer Prophylaxis: taking po Glycemic Control: OK Plans in collaboration with bedside consultants and IM MDs. Discussed with RN to reach out if any questions or concerns A total of 32 minutes of critical care time was devoted to this patient today, required to treat and/or prevent further deterioration of critical care condition ( as above KAYE PEDERSEN MD Nov 27, 2020 10:05
[2020-11-27] MEDS: guaiFENesin/DM (ROBITUSSIN DM) 10 ML UDC PO PRN ×2 (10:25→15:12)
[2020-11-27] MEDS: AZITHROMYCIN INJECTION 500 MG in NS (IVPB) 250 ML IV SCH (10:28)
[2020-11-27] MEDS: LACTATED RINGERS 1,000 ML IV SCH (13:09)
[2020-11-27] MEDS: ONDANSETRON 4 MG/2 ML (SDV) Z0FRAN IV PRN (13:09)
[2020-11-27] MEDS: UMECLIDINIUM BROMIDE (INCRUSE ELLIPTA) 7'S IH SCH (14:58)
[2020-11-27] MEDS: ENOXAPARIN 40 MG/0.4 ML (LOVENOX) SYR SC SCH (18:22)
[2020-11-27] MEDS: REMDESIVIR 100 MG/NS 250 ML IVPB IV SCH ×2 (18:22)
[2020-11-27 20:32] VITALS: BP 117/77
[2020-11-28] MEDS: CEFEPIME INJECTION 1,000 MG in WATER (STERILE) FOR INJECTION 10 ML IV SCH ×4 (00:58→17:12)
[2020-11-28] MEDS: POTASSIUM CL 10MEQ/50ML IVPB 50 ML IV SCH (02:34)
[2020-11-28] MEDS: KCL 20 MEQ TAB (K-DUR) PO SCH (02:34)
[2020-11-28] MEDS: MAGNESIUM 1 GM/100 ML IVPB 100 ML IV SCH (02:34)
[2020-11-28] MEDS: RT-ALBUTEROL HFA 8.5 GM INHALER IH SCH ×4 (02:42→18:45)
[2020-11-28 02:43] VITALS: BP 137/82
[2020-11-28] MEDS: guaiFENesin/DM (ROBITUSSIN DM) 10 ML UDC PO PRN ×3 (02:59→12:56)
[2020-11-28 04:09] LABS: BASOPHILS % (AUTO) 0 % (0-10); EOSINOPHILS % (AUTO) 0 % (0-10); HEMATOCRIT 42 % (40-54); HEMOGLOBIN 13.5 g/dL (13.3-17.7); LYMPHOCYTES # (AUTO) 0.8 10^3/uL (1.0-4.0); LYMPHOCYTES % (AUTO) 9 % (12-44); MEAN CORPUSCULAR HEMOGLOBIN 28 pg (25-34); MEAN CORPUSCULAR HGB CONC 33 g/dL (32-36); MEAN CORPUSCULAR VOLUME 85 fL (80-99); MEAN PLATELET VOLUME 9.6 fL (9.0-12.2); MONOCYTES # (AUTO) 0.3 10^3/uL (0.0-1.0); MONOCYTES % (AUTO) 3 % (0-12); NEUTROPHILS # (AUTO) 8.1 10^3/uL (1.8-7.8); NEUTROPHILS % (AUTO) 87 % (42-75); PLATELET COUNT 251 10^3/uL (130-400); WHITE BLOOD COUNT 9.3 10^3/uL (4.3-11.0)
[2020-11-28 04:20] LABS: POTASSIUM 4.4 MMOL/L (3.6-5.0)
[2020-11-28 04:22] LABS: CALCIUM 8.1 MG/DL (8.5-10.1)
[2020-11-28 04:26] LABS: CREATININE SERUM 0.79 MG/DL (0.60-1.30); PHOSPHORUS 2.1 MG/DL (2.3-4.7)
[2020-11-28 04:28] LABS: MAGNESIUM 2.2 MG/DL (1.6-2.4)
[2020-11-28] MEDS: inSUlin ASPART (NovoLOG) 1 UNIT/0.01 ML (CHARGE PER UNIT) SC SCH ×4 (05:13→21:09)
--- NOTE | 2020-11-28 05:22 | Progress Note - Hospitalist ---
Subjective HPI/CC On Admission Date Seen by Provider: Nov 28, 2020 Time Seen by Provider: 10:00 Chief complaint: COVID-19 pneumonia with sepsis History present illness: This is a 60-year-old white male who was diagnosed with Covid 9 days ago who presented to the ER with shortness of breath fever and lethargy. Patient was found to have hypotension responded to aggressive IV fluids and placed on BiPAP for hypoxia. Currently it is difficult to communicate due to BiPAP. We will initiate IV antibiotics and closely monitor since he is high risk for decompensation. Subjective/Events-last exam Pt not ready to go to 4th floor BiPAP maintained at night and Vapotherm at 40 liters at 100% Pt appears to be high risk for decompensation Already asking to go home Review of Systems Pulmonary: Dyspnea, Cough Focused Exam Lactate Level 11/27/20 08:32: Lactic Acid Level 0.78 Objective Exam Vital Signs Vital Signs Date Time Temp Pulse Resp B/P (MAP) Pulse Ox O2 Delivery O2 Flow Rate FiO2 11/28/20 20:00 Vapotherm 35.00 100 11/28/20 19:40 36.9 11/28/20 19:19 81 11/28/20 18:45 96 11/28/20 18:00 119/64 (82) 11/28/20 17:00 31 Capillary Refill : Less Than 3 Seconds General Appearance: No Apparent Distress, WD/WN, Chronically ill Respiratory: No Accessory Muscle Use, No Respiratory Distress, Decreased Breath Sounds Cardiovascular: Regular Rate, Rhythm Neurologic/Psychiatric: Alert, Oriented x3, Depressed Affect Results/Procedures Lab Laboratory Tests 11/28/20 03:30 Patient resulted labs reviewed. Assessment/Plan Assessment and Plan Assess & Plan/Chief Complaint Assessment: Acute hypoxic respiratory failure COVID-19 pneumonia Hypotension Sepsis Bacterial pneumonia Hypothyroidism DJD Plan: BiPAP Supportive care Monitor closely 11/27/20: Monitor ABG Monitor closely 11/28/2020: Vapotherm and BiPAP Monitor closely CARISSA MARTINS DO Nov 28, 2020 05:22
[2020-11-28 07:08] VITALS: BP 122/79
[2020-11-28] MEDS: UMECLIDINIUM BROMIDE (INCRUSE ELLIPTA) 7'S IH SCH (07:10)
--- NOTE | 2020-11-28 07:10 | Diagnostic Imaging Report ---
INDICATION: COVID 19 positive. FINDINGS: Bilateral 5 lobe alveolar infiltrates are again demonstrated. Overall density and extent does not appear significantly changed. No pneumothorax or pleural effusion. Heart is not enlarged. IMPRESSION: Bilateral 5 lobe pneumonia again demonstrated without significant change. Report was faxed to [facility]/RN Infection Control by chinedu at 7:09am. Dictated by: Dictated on workstation # [id number]
[2020-11-28] MEDS ORDERED: SENNA W/DOCUSATE (SENOKOT S) TABLET PO ONE (10:00)
[2020-11-28] MEDS ORDERED: polyethylene glycoL POWDER 17 GM (MIRALAX) PACK PO ONE (10:00)
[2020-11-28] MEDS: AZITHROMYCIN INJECTION 500 MG in NS (IVPB) 250 ML IV SCH (10:01)
[2020-11-28] MEDS: ONDANSETRON 4 MG/2 ML (SDV) Z0FRAN IV PRN (10:01)
[2020-11-28] MEDS: PANTOPRAZOLE 40 MG (PROTONIX) VIAL IV SCH (10:01)
--- NOTE | 2020-11-28 16:54 | Tele-ICU Progress Note ---
Subjective Date Seen by a Provider: Nov 28, 2020 Time Seen by a Provider: 16:54 Sepsis Event Evaluation Height, Weight, BMI Height: '" Weight: lbs. oz. kg; 34.90 BMI Method: Focused Exam Lactate Level 11/27/20 08:32: Lactic Acid Level 0.78 Exam Exam Patient acknowledged, consented, and participated in this virtual visit which was conducted using real time audio/video Vital Signs Date Time Temp Pulse Resp B/P (MAP) Pulse Ox O2 Delivery O2 Flow Rate FiO2 11/28/20 16:30 36.1 11/28/20 16:00 76 27 118/68 (85) 93 Vapotherm 30.00 100.00 11/28/20 16:00 Vapotherm 30.00 80 11/28/20 15:00 70 50 120/83 (95) 96 Vapotherm 30.00 100.00 11/28/20 14:39 95 Vapotherm 30.00 90 11/28/20 14:00 74 47 118/74 (89) 98 Vapotherm 30.00 100.00 11/28/20 13:00 70 109/68 (82) 89 Vapotherm 30.00 100.00 11/28/20 12:40 75 11/28/20 12:00 76 23 99/79 (86) 96 Vapotherm 30.00 100.00 11/28/20 12:00 36.1 11/28/20 12:00 Vapotherm 30.00 100 11/28/20 11:00 72 31 126/82 (97) 89 Vapotherm 30.00 100.00 11/28/20 10:00 74 28 112/71 (85) 91 Vapotherm 30.00 100.00 11/28/20 09:00 72 23 113/73 (86) 94 Vapotherm 30.00 100.00 11/28/20 08:00 75 18 112/71 (85) 92 Vapotherm 30.00 100.00 11/28/20 08:00 Vapotherm 30.00 100 11/28/20 07:45 36.2 11/28/20 07:17 92 Vapotherm 30.00 100 11/28/20 07:08 77 25 94 60.00 11/28/20 07:00 66 24 122/79 (93) 95 Vapotherm 30.00 100.00 11/28/20 06:49 71 11/28/20 06:00 72 112/58 (76) 91 NIV Bilevel 65.00 11/28/20 05:00 63 128/75 (93) 95 NIV Bilevel 65.00 11/28/20 04:00 72 123/76 (101) 95 NIV Bilevel 65.00 11/28/20 04:00 NIV Bilevel 65 11/28/20 03:00 68 23 127/70 (89) 91 NIV Bilevel 65.00 11/28/20 02:43 75 29 91 65.00 11/28/20 02:00 67 26 137/82 (107) 95 NIV Bilevel 65.00 11/28/20 01:00 68 21 129/83 (99) 91 NIV Bilevel 65.00 11/28/20 01:00 68 11/28/20 00:37 72 140/86 (109) 92 NIV Bilevel 65.00 11/28/20 00:00 36.0 NIV Bilevel 65.00 11/27/20 23:59 NIV Bilevel 65 11/27/20 23:00 73 21 93 11/27/20 22:09 72 134/78 (99) 93 NIV Bilevel 65.00 11/27/20 21:00 70 93 NIV Bilevel 65.00 11/27/20 20:48 35.6 11/27/20 20:32 75 22 91 65.00 11/27/20 20:30 74 117/77 (90) 91 NIV Bilevel 65.00 11/27/20 20:00 74 33 116/81 (103) 97 NIV Bilevel 65.00 11/27/20 20:00 NIV Bilevel 65 11/27/20 19:42 37.0 NIV Bilevel 65.00 11/27/20 19:00 75 121/75 (89) 92 NIV Bilevel 70.00 11/27/20 19:00 77 11/27/20 18:40 NIV Bilevel 70.00 11/27/20 18:36 NIV Bilevel 60.00 11/27/20 18:00 73 35 110/72 (85) 92 Vapotherm 40.00 100.00 11/27/20 17:00 79 17 110/74 (86) 96 Vapotherm 40.00 100.00 I & O 11/28/20 07:00 Intake Total 700 ml Output Total 1460 ml Balance -760 ml Height & Weight Height: '" Weight: lbs. oz. kg; 34.90 BMI Method: General Appearance: No Apparent Distress, WD/WN HEENT: PERRL/EOMI, Normal ENT Inspection, Pharynx Normal, Moist Mucous Membranes Neck: Full Range of Motion, Normal Inspection, Non Tender Respiratory: No Accessory Muscle Use, No Respiratory Distress, Decreased Breath Sounds, Other (on bipap) Cardiovascular: Regular Rate, Rhythm, No Edema, No Gallop, No JVD, No Murmur, Normal Peripheral Pulses Capillary Refill: Less Than 3 Seconds Gastrointestinal: normal bowel sounds, non tender Extremity: Normal Capillary Refill, Normal Inspection, Normal Range of Motion, Non Tender, No Calf Tenderness, No Pedal Edema Neurologic/Psychiatric: Alert, Oriented x3 Skin: Normal Color, Warm/Dry Lymphatic: No Adenopathy Results Lab Laboratory Tests 11/27/20 04:15 11/28/20 03:30 Assessment/Plan Assessment/Plan (Tele-ICU Physician , Progress Note ) Available chart/ vitals / labs / Images reviewed Video assessment done using teleICU camera, rest of exam as per RN Discussed with RN Events overnight : tolerated vapotherm Afebrile I/O = TAVIA 1700 Drips: Pressors: , hemodynamically stable EXAM PER RN Consultants: Hospital course: 11/26 from ER with hypotension 80/50 and 86% RA ( covid ) 11/27 - DID NOT TOLERATED VAPOTHERM, ON BIAPAP 11/28 - 30L 100% A/P Acute hypoxic resp failure with COVID PNA , no PE on CT 11/23 and 11/26 VAPOTHERM 40 L 100% -> NIPPV PRN -prone position if able - conservative fluid strategy (aim for even or negative fluid balance - monitor carefully - s/p contrast boluses x2 CUDC-Hrzwegcerwf-5/COVID-19 infection- ( symptoms11/16 , Dx 11/20 ) -Remdesivir -Steroids IV - started -Hypercoagulable state , DDIMER 3.7 on 11/26 -> lovenox ppx dose ( no evidence of large PE on CT 11/23 and 11/26 ) Monitor for superimposed bact PNA -PCT 0.16, CEFEPIME AND Z MAX STARTED 11/26 transaminitis likely due to COVID-19. Lines : periph, (Central Line Necessity Reviewed) Gaston: OG: Nutrition: PO Analgesia: na Anxiety/ delirium na VTE Prophylaxis: lovenox 40 Stress Ulcer Prophylaxis: taking po Glycemic Control: OK Plans in collaboration with bedside consultants and IM MDs. Discussed with RN to reach out if any questions or concerns A total of 32 minutes of critical care time was devoted to this patient today, required to treat and/or prevent further deterioration of critical care cond ition ( as above KAYE PEDERSEN MD Nov 28, 2020 16:54
[2020-11-28] MEDS: LACTATED RINGERS 1,000 ML IV SCH (17:12)
[2020-11-28] MEDS: REMDESIVIR 100 MG/NS 250 ML IVPB IV SCH ×2 (17:13)
[2020-11-28] MEDS: ENOXAPARIN 40 MG/0.4 ML (LOVENOX) SYR SC SCH (17:13)
[2020-11-28] MEDS ORDERED: guaiFENesin/CODEINE (ROBITUSSIN AC) 10ML UDC PO PRN (18:45)
[2020-11-28] MEDS: guaiFENesin/CODEINE (ROBITUSSIN AC) 10ML UDC PO PRN ×2 (18:58→23:40)
[2020-11-28] MEDS: polyethylene glycoL POWDER 17 GM (MIRALAX) PACK PO SCH (21:11)
[2020-11-28] MEDS: SENNA W/DOCUSATE (SENOKOT S) TABLET PO SCH (21:11)
[2020-11-28 21:59] VITALS: BP 130/80
[2020-11-29] MEDS: CEFEPIME INJECTION 1,000 MG in WATER (STERILE) FOR INJECTION 10 ML IV SCH ×5 (01:14→23:35)
[2020-11-29 02:00] VITALS: BP 126/88
[2020-11-29] MEDS: RT-ALBUTEROL HFA 8.5 GM INHALER IH SCH ×4 (02:00→21:35)
[2020-11-29 04:00] LABS: BASOPHILS % (AUTO) 0 % (0-10); EOSINOPHILS % (AUTO) 0 % (0-10); HEMATOCRIT 42 % (40-54); HEMOGLOBIN 13.8 g/dL (13.3-17.7); LYMPHOCYTES % (AUTO) 9 % (12-44); MEAN CORPUSCULAR HEMOGLOBIN 28 pg (25-34); MEAN CORPUSCULAR HGB CONC 33 g/dL (32-36); MEAN CORPUSCULAR VOLUME 84 fL (80-99); MEAN PLATELET VOLUME 9.5 fL (9.0-12.2); MONOCYTES # (AUTO) 0.5 10^3/uL (0.0-1.0); MONOCYTES % (AUTO) 4 % (0-12); NEUTROPHILS # (AUTO) 9.1 10^3/uL (1.8-7.8); NEUTROPHILS % (AUTO) 86 % (42-75); PLATELET COUNT 292 10^3/uL (130-400); WHITE BLOOD COUNT 10.6 10^3/uL (4.3-11.0)
[2020-11-29 04:15] LABS: POTASSIUM 4.6 MMOL/L (3.6-5.0)
[2020-11-29 04:16] LABS: CALCIUM 8.4 MG/DL (8.5-10.1)
[2020-11-29 04:20] LABS: CREATININE SERUM 0.81 MG/DL (0.60-1.30); PHOSPHORUS 2.3 MG/DL (2.3-4.7)
[2020-11-29 04:23] LABS: MAGNESIUM 2.2 MG/DL (1.6-2.4)
[2020-11-29] MEDS: guaiFENesin/CODEINE (ROBITUSSIN AC) 10ML UDC PO PRN ×4 (04:38→21:09)
[2020-11-29] MEDS: KCL 20 MEQ TAB (K-DUR) PO SCH (04:46)
[2020-11-29] MEDS: POTASSIUM CL 10MEQ/50ML IVPB 50 ML IV SCH (04:46)
[2020-11-29] MEDS: MAGNESIUM 1 GM/100 ML IVPB 100 ML IV SCH (04:46)
[2020-11-29] MEDS: inSUlin ASPART (NovoLOG) 1 UNIT/0.01 ML (CHARGE PER UNIT) SC SCH ×2 (04:47→14:09)
--- NOTE | 2020-11-29 05:34 | Progress Note - Hospitalist ---
Subjective HPI/CC On Admission Date Seen by Provider: Nov 29, 2020 Time Seen by Provider: 11:00 Chief complaint: COVID-19 pneumonia with sepsis History present illness: This is a 60-year-old white male who was diagnosed with Covid 9 days ago who presented to the ER with shortness of breath fever and lethargy. Patient was found to have hypotension responded to aggressive IV fluids and placed on BiPAP for hypoxia. Currently it is difficult to communicate due to BiPAP. We will initiate IV antibiotics and closely monitor since he is high risk for decompensation. Subjective/Events-last exam Pt doing pretty well Remains on Vapotherm 35 liters at 100% May need BiPAP today but he did wear it last night Will DC the sliding scale Review of Systems General: Fatigue Focused Exam Lactate Level 11/27/20 08:32: Lactic Acid Level 0.78 Objective Exam Vital Signs Vital Signs Date Time Temp Pulse Resp B/P (MAP) Pulse Ox O2 Delivery O2 Flow Rate FiO2 11/29/20 19:30 36.4 11/29/20 19:00 70 11/29/20 18:24 96 Vapotherm 35.00 100 11/29/20 18:00 21 21/96 (71) Capillary Refill : Less Than 3 Seconds General Appearance: No Apparent Distress, WD/WN, Chronically ill Respiratory: Lungs Clear, Normal Breath Sounds Cardiovascular: Regular Rate, Rhythm Neurologic/Psychiatric: Alert, Oriented x3 Results/Procedures Lab Laboratory Tests 11/29/20 03:37 Patient resulted labs reviewed. Assessment/Plan Assessment and Plan Assess & Plan/Chief Complaint Assessment: Acute hypoxic respiratory failure COVID-19 pneumonia Hypotension Sepsis Bacterial pneumonia Hypothyroidism DJD Plan: BiPAP Supportive care Monitor closely 11/27/20: Monitor ABG Monitor closely 11/28/2020: Vapotherm and BiPAP Monitor closely 11/29/2020: Slow recovery Guarded prognosis Still at risk for intubation CARISSA MARTINS DO Nov 29, 2020 05:34
[2020-11-29] MEDS: LACTATED RINGERS 1,000 ML IV SCH ×2 (06:30→15:01)
--- NOTE | 2020-11-29 07:43 | Diagnostic Imaging Report ---
INDICATION: Pneumonia. Comparison made with prior examination 11/28/2020. FINDINGS: Heart size is normal. There are diffuse bilateral groundglass infiltrates. There is no pleural effusion or pneumothorax. Mediastinum is unremarkable. IMPRESSION: Relatively unchanged diffuse bilateral groundglass infiltrates suspect for atypical pneumonia possibly Covid. Recommend clinical correlation. Dictated by: Dictated on workstation # [id number]
[2020-11-29] MEDS: UMECLIDINIUM BROMIDE (INCRUSE ELLIPTA) 7'S IH SCH (08:41)
[2020-11-29 08:42] VITALS: BP 125/77
--- NOTE | 2020-11-29 08:56 | Tele-ICU Progress Note ---
Subjective Date Seen by a Provider: Nov 29, 2020 Time Seen by a Provider: 08:56 Sepsis Event Evaluation Height, Weight, BMI Height: '" Weight: lbs. oz. kg; 34.90 BMI Method: Focused Exam Lactate Level 11/27/20 08:32: Lactic Acid Level 0.78 Exam Exam Patient acknowledged, consented, and participated in this virtual visit which was conducted using real time audio/video Vital Signs Date Time Temp Pulse Resp B/P (MAP) Pulse Ox O2 Delivery O2 Flow Rate FiO2 11/29/20 08:42 71 26 92 65.00 11/29/20 08:00 62 125/77 (93) 96 NIV Bilevel 60.00 11/29/20 07:53 36.4 11/29/20 07:00 76 11/29/20 07:00 73 127/95 (106) 91 NIV Bilevel 60.00 11/29/20 06:00 64 126/73 (90) 94 NIV Bilevel 60.00 11/29/20 05:00 63 127/76 (93) 94 NIV Bilevel 60.00 11/29/20 04:00 68 126/76 (93) 99 NIV Bilevel 60.00 11/29/20 04:00 NIV Bilevel 50 11/29/20 03:00 70 125/83 (97) 96 NIV Bilevel 60.00 11/29/20 02:00 73 128/83 (98) 99 NIV Bilevel 60.00 11/29/20 02:00 77 26 98 40.00 11/29/20 01:00 70 11/29/20 01:00 73 126/88 (101) 97 NIV Bilevel 60.00 11/29/20 00:00 75 128/82 (97) 96 NIV Bilevel 60.00 11/28/20 23:59 NIV Bilevel 50 11/28/20 23:00 81 124/108 (113) 97 NIV Bilevel 60.00 11/28/20 22:00 71 123/90 (101) 98 NIV Bilevel 60.00 11/28/20 21:59 81 21 94 50.00 11/28/20 21:00 76 117/71 (86) 94 Vapotherm 30.00 100.00 11/28/20 20:00 77 109/81 (90) 99 Vapotherm 30.00 100.00 11/28/20 20:00 Vapotherm 35.00 100 11/28/20 19:40 36.9 11/28/20 19:19 81 11/28/20 19:00 78 124/68 (86) 94 Vapotherm 30.00 100.00 11/28/20 18:45 96 Vapotherm 35.00 100 11/28/20 18:00 72 119/64 (82) 88 Vapotherm 30.00 100.00 11/28/20 17:00 69 31 112/74 (87) 95 Vapotherm 30.00 100.00 11/28/20 16:30 36.1 11/28/20 16:00 76 27 118/68 (85) 93 Vapotherm 30.00 100.00 11/28/20 16:00 Vapotherm 30.00 80 11/28/20 15:00 70 50 120/83 (95) 96 Vapotherm 30.00 100.00 11/28/20 14:39 95 Vapotherm 30.00 90 11/28/20 14:00 74 47 118/74 (89) 98 Vapotherm 30.00 100.00 11/28/20 13:00 70 109/68 (82) 89 Vapotherm 30.00 100.00 11/28/20 12:40 75 11/28/20 12:00 76 23 99/79 (86) 96 Vapotherm 30.00 100.00 11/28/20 12:00 36.1 11/28/20 12:00 Vapotherm 30.00 100 11/28/20 11:00 72 31 126/82 (97) 89 Vapotherm 30.00 100.00 11/28/20 10:00 74 28 112/71 (85) 91 Vapotherm 30.00 100.00 11/28/20 09:00 72 23 113/73 (86) 94 Vapotherm 30.00 100.00 I & O 11/29/20 07:00 Intake Total 2100 ml Output Total 2600 ml Balance -500 ml Height & Weight Height: '" Weight: lbs. oz. kg; 34.90 BMI Method: General Appearance: No Apparent Distress, WD/WN, Chronically ill HEENT: PERRL/EOMI, Normal ENT Inspection, Pharynx Normal, Moist Mucous Membranes Neck: Full Range of Motion, Normal Inspection, Non Tender Respiratory: No Accessory Muscle Use, No Respiratory Distress, Decreased Breath Sounds Cardiovascular: Regular Rate, Rhythm Capillary Refill: Less Than 3 Seconds Gastrointestinal: normal bowel sounds, non tender Extremity: Normal Capillary Refill, Normal Inspection, Normal Range of Motion, Non Tender, No Calf Tenderness, No Pedal Edema Neurologic/Psychiatric: Alert, Oriented x3, Depressed Affect Skin: Normal Color, Warm/Dry Lymphatic: No Adenopathy Results Lab Laboratory Tests 11/28/20 03:30 11/29/20 03:37 Assessment/Plan Assessment/Plan (Tele-ICU Physician , Progress Note ) Available chart/ vitals / labs / Images reviewed Video assessment done using teleICU camera, rest of exam as per RN Discussed with RN Events overnight : tolerated vapotherm Afebrile I/O = TAVIA 1700 Drips: LR 50 Pressors: , hemodynamically stable EXAM PER RN Consultants: Hospital course: 11/26 from ER with hypotension 80/50 and 86% RA ( covid ) 11/27 - DID NOT TOLERATED VAPOTHERM, ON BIAPAP 11/28 - 30L 100% vapotherm + BIPAP prn 11/29 - bipap 15/10 65% rr22 tv 600 MV 13L A/P Acute hypoxic resp failure with COVID PNA , no PE on CT 11/23 and 11/26 VAPOTHERM 40 L 100% -> NIPPV PRN -prone position if able - sides mostly - conservative fluid strategy (aim for even or negative fluid balance - monitor carefully - s/p contrast boluses x2 [id number]-8/COVID-19 infection- ( symptoms11/16 , Dx 11/20 ) -Remdesivir -Steroids IV - started -Hypercoagulable state , DDIMER 3.7 on 11/26 -> lovenox ppx dose ( no evidence of large PE on CT 11/23 and 11/26 ) Monitor for superimposed bact PNA -PCT 0.16, CEFEPIME AND Z MAX STARTED 11/26 transaminitis likely due to COVID-19. Lines : periph, (Central Line Necessity Reviewed) Gaston: OG: Nutrition: PO Analgesia: na Anxiety/ delirium na VTE Prophylaxis: lovenox 40 Stress Ulcer Prophylaxis: taking po Glycemic Control: OK Plans in collaboration with bedside consultants and IM MDs. Discussed with RN to reach out if any questions or concerns A total of 32 minutes of critical care time was devoted to this patient today, required to treat and/or prevent further deterioration of critical care condition ( as above KAYE PEDERSEN MD Nov 29, 2020 08:56
[2020-11-29] MEDS: AZITHROMYCIN INJECTION 500 MG in NS (IVPB) 250 ML IV SCH (09:18)
[2020-11-29] MEDS: PANTOPRAZOLE 40 MG (PROTONIX) VIAL IV SCH (09:18)
[2020-11-29] MEDS: polyethylene glycoL POWDER 17 GM (MIRALAX) PACK PO SCH ×2 (09:20→21:09)
[2020-11-29] MEDS: SENNA W/DOCUSATE (SENOKOT S) TABLET PO SCH ×2 (09:20→21:09)
[2020-11-29] MEDS: ENOXAPARIN 40 MG/0.4 ML (LOVENOX) SYR SC SCH (18:43)
[2020-11-29] MEDS: REMDESIVIR 100 MG/NS 250 ML IVPB IV SCH ×2 (18:43)
[2020-11-29 21:35] VITALS: BP 118/80
[2020-11-30] MEDS ORDERED: MELATONIN 3 MG TABLET ONE (00:17)
[2020-11-30] MEDS: MELATONIN 3 MG TABLET PO SCH ×2 (00:24→19:50)
[2020-11-30] MEDS: guaiFENesin/CODEINE (ROBITUSSIN AC) 10ML UDC PO PRN ×4 (00:30→17:26)
[2020-11-30 02:18] VITALS: BP 123/84
[2020-11-30] MEDS: RT-ALBUTEROL HFA 8.5 GM INHALER IH SCH ×4 (02:18→18:23)
[2020-11-30] MEDS: MAGNESIUM 1 GM/100 ML IVPB 100 ML IV SCH (05:20)
[2020-11-30] MEDS: KCL 20 MEQ TAB (K-DUR) PO SCH (05:20)
[2020-11-30] MEDS: POTASSIUM CL 10MEQ/50ML IVPB 50 ML IV SCH (05:20)
[2020-11-30] MEDS: CEFEPIME INJECTION 1,000 MG in WATER (STERILE) FOR INJECTION 10 ML IV SCH ×3 (06:31→17:26)
[2020-11-30 06:53] VITALS: BP 135/83
[2020-11-30 07:01] LABS: BASOPHILS % (AUTO) 0 % (0-10); EOSINOPHILS % (AUTO) 0 % (0-10); HEMATOCRIT 43 % (40-54); HEMOGLOBIN 13.9 g/dL (13.3-17.7); LYMPHOCYTES # (AUTO) 0.9 10^3/uL (1.0-4.0); LYMPHOCYTES % (AUTO) 8 % (12-44); MEAN CORPUSCULAR HEMOGLOBIN 28 pg (25-34); MEAN CORPUSCULAR HGB CONC 33 g/dL (32-36); MEAN CORPUSCULAR VOLUME 85 fL (80-99); MEAN PLATELET VOLUME 9.3 fL (9.0-12.2); MONOCYTES # (AUTO) 0.3 10^3/uL (0.0-1.0); MONOCYTES % (AUTO) 2 % (0-12); NEUTROPHILS # (AUTO) 11.2 10^3/uL (1.8-7.8); NEUTROPHILS % (AUTO) 89 % (42-75); PLATELET COUNT 317 10^3/uL (130-400); WHITE BLOOD COUNT 12.6 10^3/uL (4.3-11.0)
[2020-11-30 07:13] LABS: POTASSIUM 4.5 MMOL/L (3.6-5.0)
[2020-11-30 07:14] LABS: CALCIUM 8.6 MG/DL (8.5-10.1)
[2020-11-30 07:18] LABS: CREATININE SERUM 0.89 MG/DL (0.60-1.30); PHOSPHORUS 2.6 MG/DL (2.3-4.7)
[2020-11-30 07:21] LABS: MAGNESIUM 2.1 MG/DL (1.6-2.4)
[2020-11-30] MEDS: PANTOPRAZOLE 40 MG (PROTONIX) VIAL IV SCH (09:03)
[2020-11-30] MEDS: SENNA W/DOCUSATE (SENOKOT S) TABLET PO SCH ×2 (09:03→19:50)
[2020-11-30] MEDS: AZITHROMYCIN INJECTION 500 MG in NS (IVPB) 250 ML IV SCH (09:03)
[2020-11-30] MEDS: polyethylene glycoL POWDER 17 GM (MIRALAX) PACK PO SCH ×2 (09:03→19:50)
--- NOTE | 2020-11-30 09:07 | Tele-ICU Progress Note ---
Subjective Date Seen by a Provider: Nov 30, 2020 Time Seen by a Provider: 11:30 Subjective/Events-last exam 60 yo M with COVID PNA, on BIPAP, 15/10 @ 70%d 4, tried on vapotherm and did not tolerate with SpO2 in low 8's On Cefepime, azithromycin, decadron IV, remdesivire CXR shows bilateral patchy infiltrates Sepsis Event Evaluation Height, Weight, BMI Height: '" Weight: lbs. oz. kg; 34.90 BMI Method: Exam Exam Patient acknowledged, consented, and participated in this virtual visit which was conducted using real time audio/video Vital Signs Date Time Temp Pulse Resp B/P (MAP) Pulse Ox O2 Delivery O2 Flow Rate FiO2 11/30/20 08:10 36.9 11/30/20 08:00 84 20 127/74 (98) 90 NIV Bilevel 55.00 11/30/20 07:00 66 25 114/75 (87) 95 NIV Bilevel 55.00 11/30/20 07:00 82 11/30/20 06:53 71 26 94 60.00 11/30/20 06:00 66 26 135/83 (100) 97 NIV Bilevel 55.00 11/30/20 05:00 65 24 129/73 (91) 96 NIV Bilevel 55.00 11/30/20 04:00 NIV Bilevel 70 11/30/20 04:00 76 20 128/72 (90) 95 NIV Bilevel 55.00 11/30/20 03:00 74 24 130/83 (99) 96 NIV Bilevel 55.00 11/30/20 02:18 75 22 99 60.00 11/30/20 02:00 62 24 123/84 (97) 98 NIV Bilevel 55.00 11/30/20 01:00 67 20 121/76 (91) 97 NIV Bilevel 55.00 11/30/20 01:00 70 11/30/20 00:00 76 18 128/76 (93) 93 NIV Bilevel 55.00 11/29/20 23:59 NIV Bilevel 60 11/29/20 23:00 70 20 135/83 (100) 96 NIV Bilevel 55.00 11/29/20 22:00 69 23 132/84 (100) 94 NIV Bilevel 55.00 11/29/20 21:35 76 26 99 55.00 11/29/20 21:00 65 24 118/80 (93) 99 NIV Bilevel 55.00 11/29/20 20:00 Vapotherm 35.00 100 11/29/20 20:00 64 19 130/78 (95) 99 NIV Bilevel 60.00 11/29/20 19:30 36.4 11/29/20 19:00 70 11/29/20 19:00 70 18 119/71 (87) 98 NIV Bilevel 60.00 11/29/20 18:24 96 Vapotherm 35.00 100 11/29/20 18:00 73 21 21/96 (71) 96 NIV Bilevel 60.00 11/29/20 17:00 68 44 108/86 (93) 89 NIV Bilevel 60.00 11/29/20 16:25 36.7 11/29/20 16:00 Vapotherm 35.00 100 11/29/20 16:00 72 39 118/71 (87) 100 NIV Bilevel 60.00 11/29/20 15:00 84 104/82 (89) 100 NIV Bilevel 60.00 11/29/20 14:07 100 Vapotherm 30.00 11/29/20 14:00 73 87 111/65 (80) 96 NIV Bilevel 60.00 11/29/20 13:00 66 22 119/73 (88) 100 NIV Bilevel 60.00 11/29/20 12:38 67 11/29/20 12:00 70 115/70 (85) 100 NIV Bilevel 60.00 11/29/20 12:00 Vapotherm 35.00 100 11/29/20 11:39 36.5 11/29/20 11:00 73 29 114/74 (87) 97 NIV Bilevel 60.00 11/29/20 10:00 73 31 119/75 (90) 98 NIV Bilevel 60.00 I & O 11/30/20 07:00 Intake Total 2072 ml Output Total 2100 ml Balance -28 ml Height & Weight Height: '" Weight: lbs. oz. kg; 34.90 BMI Method: General Appearance: No Apparent Distress, WD/WN, Chronically ill HEENT: PERRL/EOMI, Normal ENT Inspection, Pharynx Normal, Moist Mucous Membranes Neck: Full Range of Motion, Normal Inspection, Non Tender Respiratory: Lungs Clear, Normal Breath Sounds, Decreased Breath Sounds, Rho nci, Other (frequent coughing) Cardiovascular: Regular Rate, Rhythm Capillary Refill: Less Than 3 Seconds Gastrointestinal: normal bowel sounds, non tender, soft (has midlinte) Extremity: Normal Capillary Refill, Normal Inspection, Normal Range of Motion, Non Tender, No Calf Tenderness, No Pedal Edema Neurologic/Psychiatric: Alert, Oriented x3 Skin: Normal Color, Warm/Dry Lymphatic: No Adenopathy Results Lab Laboratory Tests 11/29/20 03:37 11/30/20 06:35 Assessment/Plan Assessment/Plan COVID PNA, will continue above meds,, monitor oxygen saturation VENKATESH LOPEZ MD Nov 30, 2020 09:07
[2020-11-30 11:12] VITALS: BP 124/74
[2020-11-30] MEDS: UMECLIDINIUM BROMIDE (INCRUSE ELLIPTA) 7'S IH SCH (11:12)
[2020-11-30] MEDS: ENOXAPARIN 40 MG/0.4 ML (LOVENOX) SYR SC SCH (17:26)
[2020-11-30] MEDS: REMDESIVIR 100 MG/NS 250 ML IVPB IV SCH ×2 (17:26)
[2020-11-30] MEDS: LACTATED RINGERS 1,000 ML IV SCH (17:30)
--- NOTE | 2020-11-30 18:47 | Progress Note - Hospitalist ---
Subjective HPI/CC On Admission Date Seen by Provider: Nov 30, 2020 Time Seen by Provider: 09:15 Chief complaint: COVID-19 pneumonia with sepsis History present illness: This is a 60-year-old white male who was diagnosed with Covid 9 days ago who presented to the ER with shortness of breath fever and lethargy. Patient was found to have hypotension responded to aggressive IV fluids and placed on BiPAP for hypoxia. Currently it is difficult to communicate due to BiPAP. We will initiate IV antibiotics and closely monitor since he is high risk for decompensation. Subjective/Events-last exam He is wearing BiPAP. He does not feel short of breath. He has a cough. He is not having fevers. Objective Exam Vital Signs Vital Signs Date Time Temp Pulse Resp B/P (MAP) Pulse Ox O2 Delivery O2 Flow Rate FiO2 11/30/20 18:23 93 Vapotherm 40.00 100 11/30/20 18:00 77 27 116/66 (83) 11/30/20 15:57 37.2 Capillary Refill : Less Than 3 Seconds General Appearance: No Apparent Distress, Obese Respiratory: No Respiratory Distress, Decreased Breath Sounds, Other (wearing BiPAP) Cardiovascular: Regular Rate, Rhythm, No Edema, No Murmur Gastrointestinal: Normal Bowel Sounds, Non Tender, Soft Extremity: Normal Inspection, Non Tender, No Pedal Edema Neurologic/Psychiatric: Alert, Oriented x3, No Motor/Sensory Deficits, Normal Mood/Affect Skin: Normal Color, Warm/Dry Results/Procedures Lab Laboratory Tests 11/30/20 06:35 Patient resulted labs reviewed. Imaging: Reviewed Imaging Report Assessment/Plan Assessment and Plan Assess & Plan/Chief Complaint Acute respiratory failure due to COVID-19 Hypercoagulable state associated with COVID-19 Decadron Remdesivir day 09/05 BiPAP Procalcitonin normal Stop antibiotics Ddimer trending up Transition to therapeutic Lovenox TeleICU following Obesity Clinically significant, no acute management needs Critical Care Critically Ill Patient Diagnosis/Problems Diagnosis/Problems (1) Acute respiratory failure due to COVID-19 Status: Acute (2) Hypercoagulable state associated with COVID-19 Status: Acute (3) Obesity Status: Chronic MANUEL JOSHI MD Nov 30, 2020 18:47
[2020-11-30] MEDS ORDERED: ENOXAPARIN 100 MG/1 ML (LOVENOX) SYR ONE (21:24)
[2020-11-30 22:12] VITALS: BP 125/75
[2020-11-30] MEDS: ENOXAPARIN 100 MG/1 ML (LOVENOX) SYR SC SCH (23:01)
[2020-12-01] MEDS: RT-ALBUTEROL HFA 8.5 GM INHALER IH SCH ×4 (02:20→18:27)
[2020-12-01 02:21] VITALS: BP 118/79
[2020-12-01] MEDS: guaiFENesin/CODEINE (ROBITUSSIN AC) 10ML UDC PO PRN ×4 (02:33→16:33)
[2020-12-01 02:52] LABS: BASOPHILS % (AUTO) 0 % (0-10); EOSINOPHILS % (AUTO) 0 % (0-10); HEMATOCRIT 42 % (40-54); HEMOGLOBIN 13.8 g/dL (13.3-17.7); LYMPHOCYTES # (AUTO) 0.7 10^3/uL (1.0-4.0); LYMPHOCYTES % (AUTO) 7 % (12-44); MEAN CORPUSCULAR HEMOGLOBIN 28 pg (25-34); MEAN CORPUSCULAR HGB CONC 33 g/dL (32-36); MEAN CORPUSCULAR VOLUME 84 fL (80-99); MEAN PLATELET VOLUME 9.7 fL (9.0-12.2); MONOCYTES # (AUTO) 0.2 10^3/uL (0.0-1.0); MONOCYTES % (AUTO) 2 % (0-12); NEUTROPHILS % (AUTO) 90 % (42-75); PLATELET COUNT 277 10^3/uL (130-400)
[2020-12-01 03:03] LABS: POTASSIUM 4.6 MMOL/L (3.6-5.0)
[2020-12-01 03:04] LABS: CALCIUM 8.6 MG/DL (8.5-10.1)
[2020-12-01 03:08] LABS: CREATININE SERUM 0.83 MG/DL (0.60-1.30); PHOSPHORUS 2.3 MG/DL (2.3-4.7)
[2020-12-01 03:11] LABS: MAGNESIUM 2.1 MG/DL (1.6-2.4)
[2020-12-01] MEDS: MAGNESIUM 1 GM/100 ML IVPB 100 ML IV SCH (04:19)
[2020-12-01] MEDS: POTASSIUM CL 10MEQ/50ML IVPB 50 ML IV SCH (04:19)
[2020-12-01] MEDS: KCL 20 MEQ TAB (K-DUR) PO SCH (04:20)
[2020-12-01 06:40] VITALS: BP 114/71
[2020-12-01] MEDS: PANTOPRAZOLE 40 MG (PROTONIX) VIAL IV SCH (09:07)
[2020-12-01] MEDS: SENNA W/DOCUSATE (SENOKOT S) TABLET PO SCH ×2 (09:07→19:32)
[2020-12-01] MEDS: polyethylene glycoL POWDER 17 GM (MIRALAX) PACK PO SCH ×2 (09:07→19:32)
[2020-12-01] MEDS: ENOXAPARIN 100 MG/1 ML (LOVENOX) SYR SC SCH ×2 (09:07→19:32)
--- NOTE | 2020-12-01 10:12 | Tele-ICU Progress Note ---
Subjective Date Seen by a Provider: Dec 01, 2020 Time Seen by a Provider: 09:30 Subjective/Events-last exam Patient participated in this virtual visit which was conducted using real time audio/video. Thank you for asking us to see this patient for respiratory insufficiency and distress due to Covid pna.. HPC: Recent events: Off BiPAP and on Vapotherm 40 L 100%. PMH: Obesity, OA SH: smoking history Yes FH: Non-contributory ROS: limited by patient's clinical condition, but no new complaints. Anxiety w coughing. PE: Comfortable in bed. VSS 93% O2 sat on VT HEENT: No obvious masses, adenopathy or JVD. Chest: clear to auscultation. CV: RRR S1 S2 No murmur or added sounds. Abd: Non-tender. Bowel sounds . : Unremarkable. COMMUNICATIONS EQUIPMENT OPERATOR/psychiatric: Alert and oriented, grossly intact. No obvious focal findings. Extremities: No edema. Capillary refill < 3 seconds. Skin: unremarkable. Results: Elevated glucose 109. A/P: Respiratory insufficiency/distress: better. Available chart/ vitals / labs / Images reviewed. Video assessment done using teleICU camera, rest of exam as per RN. Respiratory: Continue present management with VT Monitor for increasing oxygenation needs, cont present meds. Critical Care: critically ill patient. Discussed with RN TAISHA. Asked RN to reach out to eICU if any questions or concerns later. Time spent with patient/coordination of care with other health professionals (mins):15. Sepsis Event Evaluation Sepsis Stage: Ruled Out Height, Weight, BMI Height: '" Weight: lbs. oz. kg; 34.90 BMI Method: Focused Exam Sepsis Stage: Ruled Out Exam Exam Patient acknowledged, consented, and participated in this virtual visit which was conducted using real time audio/video Vital Signs Date Time Temp Pulse Resp B/P (MAP) Pulse Ox O2 Delivery O2 Flow Rate FiO2 12/01/20 09:40 Vapotherm 40.00 100.00 12/01/20 09:00 101 29 95/66 (76) 95 NIV Bilevel 60.00 12/01/20 08:13 37.8 12/01/20 08:00 90 17 112/69 (80) 90 NIV Bilevel 60.00 12/01/20 07:00 77 21 128/83 (93) 90 NIV Bilevel 60.00 12/01/20 07:00 73 12/01/20 06:40 85 27 92 60.00 12/01/20 06:00 76 23 114/71 (85) 94 NIV Bilevel 60.00 12/01/20 05:00 72 27 137/82 (100) 91 NIV Bilevel 60.00 12/01/20 04:00 73 18 124/82 (96) 96 NIV Bilevel 60.00 12/01/20 03:09 36.6 12/01/20 03:03 NIV Bilevel 60 12/01/20 03:00 70 20 123/75 (91) 93 NIV Bilevel 60.00 12/01/20 02:21 75 23 96 60.00 12/01/20 02:00 82 19 118/79 (92) 91 NIV Bilevel 60.00 12/01/20 01:23 78 12/01/20 01:00 69 23 135/77 (96) 94 NIV Bilevel 60.00 12/01/20 00:00 69 12 129/76 (93) 94 NIV Bilevel 60.00 11/30/20 23:18 NIV Bilevel 60 11/30/20 23:03 37.0 11/30/20 23:00 70 21 124/74 (91) 95 NIV Bilevel 60.00 11/30/20 22:12 74 21 95 60.00 11/30/20 22:00 80 24 125/75 (92) 100 NIV Bilevel 60.00 11/30/20 21:18 NIV Bilevel 60.00 11/30/20 21:00 71 25 119/80 (93) 96 NIV Bilevel 70.00 11/30/20 20:00 80 22 121/68 (85) 91 NIV Bilevel 70.00 11/30/20 20:00 NIV Bilevel 70 11/30/20 19:54 NIV Bilevel 70.00 11/30/20 19:51 36.4 11/30/20 19:00 86 11/30/20 19:00 81 20 118/67 (84) 89 Vapotherm 40.00 100.00 11/30/20 18:23 93 Vapotherm 40.00 100 11/30/20 18:00 77 27 116/66 (83) 93 Vapotherm 40.00 100.00 11/30/20 17:00 75 21 105/62 (76) 94 Vapotherm 40.00 100.00 11/30/20 16:00 Venturi Mask 40.00 100 11/30/20 16:00 78 27 97/67 (77) 91 Vapotherm 40.00 100.00 11/30/20 15:57 37.2 11/30/20 15:17 Vapotherm 40.00 100.00 11/30/20 15:02 92 Vapotherm 40.00 100 11/30/20 15:00 77 18 102/55 (71) 93 NIV Bilevel 70.00 11/30/20 14:00 73 17 120/99 (106) 96 NIV Bilevel 70.00 11/30/20 13:00 72 11/30/20 13:00 79 15 117/72 (87) 98 NIV Bilevel 70.00 11/30/20 12:00 71 21 132/76 (94) 94 NIV Bilevel 70.00 11/30/20 12:00 NIV Bilevel 70 11/30/20 11:45 36.7 11/30/20 11:12 74 21 92 70.00 11/30/20 11:00 83 24 124/75 (91) 94 NIV Bilevel 70.00 I & O 12/01/20 07:00 Intake Total 835 ml Output Total 2050 ml Balance -1215 ml Height & Weight Height: '" Weight: lbs. oz. kg; 34.90 BMI Method: General Appearance: No Apparent Distress, WD/WN, Chronically ill HEENT: PERRL/EOMI, Normal ENT Inspection, Pharynx Normal, Moist Mucous Membranes Neck: Full Range of Motion, Normal Inspection, Non Tender Respiratory: Lungs Clear, Normal Breath Sounds, Decreased Breath Sounds, Rhonci, Other (frequent coughing) Cardiovascular: Regular Rate, Rhythm Capillary Refill: Less Than 3 Seconds Gastrointestinal: normal bowel sounds, non tender, soft (has midlinte) Extremity: Normal Capillary Refill, Normal Inspection, Normal Range of Motion, Non Tender, No Calf Tenderness, No Pedal Edema Neurologic/Psychiatric: Alert, Oriented x3 Skin: Normal Color, Warm/Dry Lymphatic: No Adenopathy Results Lab Laboratory Tests 11/30/20 06:35 12/01/20 02:36 Assessment/Plan Assessment/Plan See free text. Critical Care: Critically Ill Patient Time spent on discussion(mins): 0 Diagnosis/Problems Diagnosis/Problems (1) Obesity Status: Chronic (2) Pneumonia due to COVID-19 virus Status: Acute (3) Acute respiratory failure due to COVID-19 Status: Acute ARMOND MOODY MD Dec 01, 2020 10:12
[2020-12-01] MEDS: UMECLIDINIUM BROMIDE (INCRUSE ELLIPTA) 7'S IH SCH (10:20)
[2020-12-01] MEDS: LACTATED RINGERS 1,000 ML IV SCH (14:28)
--- NOTE | 2020-12-01 15:21 | Progress Note - Hospitalist ---
Subjective HPI/CC On Admission Date Seen by Provider: Dec 01, 2020 Time Seen by Provider: 07:10 Chief complaint: COVID-19 pneumonia with sepsis History present illness: This is a 60-year-old white male who was diagnosed with Covid 9 days ago who presented to the ER with shortness of breath fever and lethargy. Patient was found to have hypotension responded to aggressive IV fluids and placed on BiPAP for hypoxia. Currently it is difficult to communicate due to BiPAP. We will initiate IV antibiotics and closely monitor since he is high risk for decompensation. Subjective/Events-last exam He feels ok today. He thinks he feels about the same. He is not short of breath. He is wearing BiPAP. Objective Exam Vital Signs Vital Signs Date Time Temp Pulse Resp B/P (MAP) Pulse Ox O2 Delivery O2 Flow Rate FiO2 12/01/20 15:00 83 20 109/55 (73) 94 Vapotherm 40.00 100.00 12/01/20 14:31 100 12/01/20 12:46 36.7 Capillary Refill : Less Than 3 Seconds General Appearance: No Apparent Distress, Obese Respiratory: No Respiratory Distress, Decreased Breath Sounds, Other (wearing BiPAP) Cardiovascular: Regular Rate, Rhythm, No Edema, No Murmur Gastrointestinal: Normal Bowel Sounds, Non Tender, Soft Extremity: Normal Inspection, Non Tender, No Pedal Edema Neurologic/Psychiatric: Alert, Normal Mood/Affect Skin: Normal Color, Warm/Dry Results/Procedures Lab Laboratory Tests 12/01/20 02:36 Patient resulted labs reviewed. Imaging: Reviewed Imaging Report Assessment/Plan Assessment and Plan Assess & Plan/Chief Complaint Acute respiratory failure due to COVID-19 Hypercoagulable state associated with COVID-19 Decadron s/p Remdesivir Transition to Vapotherm, BiPAP as needed Ddimer trended up Continue therapeutic Lovenox Consider repeat CTA to rule out PE once more stable oxygenation TeleICU following Obesity Clinically significant, no acute management needs Critical Care Critically Ill Patient Diagnosis/Problems Diagnosis/Problems (1) Acute respiratory failure due to COVID-19 Status: Acute (2) Hypercoagulable state associated with COVID-19 Status: Acute (3) Obesity Status: Chronic MANUEL JOSHI MD Dec 01, 2020 15:21
[2020-12-01 18:38] VITALS: BP 117/71
[2020-12-01] MEDS: MELATONIN 3 MG TABLET PO SCH (19:32)
[2020-12-01 21:56] VITALS: BP 123/75
[2020-12-02] MEDS: guaiFENesin/CODEINE (ROBITUSSIN AC) 10ML UDC PO PRN ×6 (00:41→23:52)
[2020-12-02] MEDS: RT-ALBUTEROL HFA 8.5 GM INHALER IH SCH ×4 (02:11→19:12)
[2020-12-02 02:12] VITALS: BP 118/77
[2020-12-02 03:43] LABS: BASOPHILS % (AUTO) 0 % (0-10); EOSINOPHILS % (AUTO) 0 % (0-10); HEMATOCRIT 40 % (40-54); HEMOGLOBIN 13.5 g/dL (13.3-17.7); LYMPHOCYTES # (AUTO) 0.7 X 10^3 (1.0-4.0); LYMPHOCYTES % (AUTO) 8 % (12-44); MEAN CORPUSCULAR HEMOGLOBIN 28 pg (25-34); MEAN CORPUSCULAR HGB CONC 34 g/dL (32-36); MEAN CORPUSCULAR VOLUME 83 fL (80-99); MEAN PLATELET VOLUME 9.6 fL (9.0-12.2); MONOCYTES # (AUTO) 0.2 X 10^3 (0.0-1.0); MONOCYTES % (AUTO) 2 % (0-12); NEUTROPHILS # (AUTO) 7.3 X 10^3 (1.8-7.8); NEUTROPHILS % (AUTO) 89 % (42-75); PLATELET COUNT 266 10^3/uL (130-400); WHITE BLOOD COUNT 8.2 10^3/uL (4.3-11.0)
[2020-12-02 04:17] LABS: POTASSIUM 4.6 MMOL/L (3.6-5.0)
[2020-12-02 04:18] LABS: CALCIUM 8.4 MG/DL (8.5-10.1); CREATININE SERUM 0.7 MG/DL (0.60-1.30); MAGNESIUM 1.9 MG/DL (1.6-2.4); PHOSPHORUS 2.1 MG/DL (2.3-4.7)
[2020-12-02] MEDS: MAGNESIUM 1 GM/100 ML IVPB 100 ML IV SCH (04:25)
[2020-12-02] MEDS: KCL 20 MEQ TAB (K-DUR) PO SCH (04:25)
[2020-12-02] MEDS: POTASSIUM CL 10MEQ/50ML IVPB 50 ML IV SCH (04:25)
[2020-12-02] MEDS: UMECLIDINIUM BROMIDE (INCRUSE ELLIPTA) 7'S IH SCH (06:56)
[2020-12-02] MEDS: SENNA W/DOCUSATE (SENOKOT S) TABLET PO SCH ×2 (08:45→20:02)
[2020-12-02] MEDS: ENOXAPARIN 100 MG/1 ML (LOVENOX) SYR SC SCH ×2 (08:45→20:15)
[2020-12-02] MEDS: PANTOPRAZOLE 40 MG (PROTONIX) VIAL IV SCH (08:45)
[2020-12-02] MEDS: polyethylene glycoL POWDER 17 GM (MIRALAX) PACK PO SCH ×2 (08:45→20:01)
--- NOTE | 2020-12-02 10:54 | Tele-ICU Progress Note ---
Subjective Date Seen by a Provider: Dec 02, 2020 Time Seen by a Provider: 10:12 Sepsis Event Evaluation Height, Weight, BMI Height: '" Weight: lbs. oz. kg; 34.90 BMI Method: Exam Exam Patient acknowledged, consented, and participated in this virtual visit which was conducted using real time audio/video Vital Signs Date Time Temp Pulse Resp B/P (MAP) Pulse Ox O2 Delivery O2 Flow Rate FiO2 12/02/20 10:00 87 26 139/75 (96) 94 NIV Bilevel 80.00 12/02/20 09:06 NIV Bilevel 80.00 12/02/20 09:00 81 23 130/69 (89) 90 Vapotherm 40.00 100.00 12/02/20 08:00 36.9 12/02/20 08:00 79 26 108/63 (79) 86 Vapotherm 40.00 100.00 12/02/20 08:00 91 Vapotherm 40.00 100 12/02/20 07:00 77 12/02/20 07:00 81 18 119/87 (95) 93 Vapotherm 40.00 100.00 12/02/20 06:58 92 Vapotherm 40.00 100 12/02/20 06:57 92 Vapotherm 40.00 100 12/02/20 06:22 Vapotherm 40.00 100.00 12/02/20 06:00 75 24 127/79 (95) 91 NIV Bilevel 60.00 12/02/20 05:00 67 20 113/76 (88) 92 NIV Bilevel 60.00 12/02/20 04:00 73 14 134/85 (101) 94 NIV Bilevel 60.00 12/02/20 03:02 36.8 12/02/20 03:01 95 NIV Bilevel 60 12/02/20 03:00 65 19 117/72 (87) 96 NIV Bilevel 60.00 12/02/20 02:12 77 20 91 60.00 12/02/20 02:00 69 19 118/77 (91) 94 NIV Bilevel 60.00 12/02/20 01:37 NIV Bilevel 60.00 12/02/20 01:00 74 12/02/20 01:00 67 17 123/70 (87) 90 NIV Bilevel 65.00 12/02/20 00:00 73 20 111/67 (82) 95 NIV Bilevel 65.00 12/01/20 23:05 81 23 124/69 (87) 92 NIV Bilevel 65.00 12/01/20 23:01 95 NIV Bilevel 65 12/01/20 22:56 36.6 12/01/20 22:00 70 20 116/73 (87) 94 NIV Bilevel 65.00 12/01/20 21:56 68 25 96 65.00 12/01/20 21:22 NIV Bilevel 65.00 12/01/20 21:00 69 20 123/72 (89) 97 NIV Bilevel 75.00 12/01/20 20:00 70 17 116/73 (87) 97 NIV Bilevel 75.00 12/01/20 20:00 NIV Bilevel 75 12/01/20 19:30 36.7 NIV Bilevel 75.00 12/01/20 19:00 80 12/01/20 19:00 76 29 119/54 (75) 93 NIV Bilevel 85.00 12/01/20 18:42 NIV Bilevel 85.00 12/01/20 18:38 85 27 92 85.00 12/01/20 18:29 37.2 12/01/20 18:28 89 Vapotherm 40.00 100 12/01/20 18:00 76 31 117/71 (86) 92 Vapotherm 40.00 100.00 12/01/20 17:00 67 24 125/73 (92) 98 Vapotherm 40.00 100.00 12/01/20 16:00 75 29 112/70 (85) 97 Vapotherm 40.00 100.00 12/01/20 16:00 Vapotherm 40.00 95 12/01/20 15:00 83 20 109/55 (73) 94 Vapotherm 40.00 100.00 12/01/20 14:54 Vapotherm 40.00 100.00 12/01/20 14:31 89 Vapotherm 35.00 100 12/01/20 14:29 35.00 100.00 12/01/20 14:00 81 36 115/65 (77) 92 Vapotherm 40.00 100.00 12/01/20 13:00 76 23 113/64 (73) 93 Vapotherm 40.00 100.00 12/01/20 13:00 73 12/01/20 12:46 36.7 12/01/20 12:03 Vapotherm 40.00 100 12/01/20 12:00 88 34 101/58 (72) 92 Vapotherm 40.00 100.00 12/01/20 11:00 89 21 97 Vapotherm 40.00 100.00 I & O 12/02/20 06:59 Intake Total 1050 ml Output Total 2375 ml Balance -1325 ml Height & Weight Height: '" Weight: lbs. oz. kg; 34.90 BMI Method: General Appearance: No Apparent Distress, Obese HEENT: PERRL/EOMI, Normal ENT Inspection, Pharynx Normal, Moist Mucous Membranes Neck: Full Range of Motion, Normal Inspection, Non Tender Respiratory: No Respiratory Distress, Decreased Breath Sounds, Other Cardiovascular: Regular Rate, Rhythm, No Edema, No Murmur Capillary Refill: Less Than 3 Seconds Gastrointestinal: normal bowel sounds, non tender, soft (has midlinte) Extremity: Normal Inspection, Non Tender, No Pedal Edema Neurologic/Psychiatric: Alert, Normal Mood/Affect Skin: Normal Color, Warm/Dry Lymphatic: No Adenopathy Results Lab Laboratory Tests 12/01/20 02:36 12/02/20 03:20 Assessment/Plan Assessment/Plan (Tele-ICU Physician , Progress Note ) Available chart/ vitals / labs / Images reviewed Video assessment done using teleICU camera, rest of exam as per RN Discussed with RN Events overnight : tolerated vapotherm Afebrile I/O = TAVIA 1700 Drips: LR 50 Pressors: , hemodynamically stable EXAM PER RN Consultants: Hospital course: 11/26 from ER with hypotension 80/50 and 86% RA ( covid ) 11/27 - DID NOT TOLERATED VAPOTHERM, ON BIAPAP 11/28 - 30L 100% vapotherm + BIPAP prn 11/29 - bipap 15/02 65% rr22 tv 600 MV 13L 12/02 vapotherm 40L 100% A/P Acute hypoxic resp failure with COVID PNA , no PE on CT 11/23 and 11/26 VAPOTHERM 40 L 100% -> NIPPV PRN -prone position if able - sides mostly - conservative fluid strategy (aim for even or negative fluid balance - monitor carefully - s/p contrast boluses x2 [id number]-0/COVID-19 infection- ( symptoms11/16 , Dx 11/20 ) -Remdesivir -Steroids IV - started -Hypercoagulable state , DDIMER 3.7 on 11/26 -> lovenox ppx dose - 11/30 d dimer 11 ->lovenox 100 q 12 ( no evidence of large PE on CT 11/23 and 11/26 ) = CRP and PCT ordered - Actemra considered Monitor for superimposed bact PNA -PCT 0.16, CEFEPIME AND Z MAX STARTED 11/26 - finished 5 day course transaminitis likely due to COVID-19. Lines : periph, (Central Line Necessity Reviewed) Gaston: OG: Nutrition: PO Analgesia: na Anxiety/ delirium na VTE Prophylaxis: lovenox 40 Stress Ulcer Prophylaxis: taking po Glycemic Control: OK Plans in collaboration with bedside consultants and IM MDs. Discussed with RN to reach out if any questions or concerns A total of 32 minutes of critical care time was devoted to this patient today, required to treat and/or prevent further deterioration of critical care condition ( as above KAYE PEDERSEN MD Dec 02, 2020 10:54
[2020-12-02] MEDS: LACTATED RINGERS 1,000 ML IV SCH (11:32)
--- NOTE | 2020-12-02 12:33 | Diagnostic Imaging Report ---
EXAMINATION: Chest 1 view HISTORY: Pneumonia, COVID 19 COMPARISON: 11/29/2020 FINDINGS: There has been improvement in now moderate bilateral airspace opacities. No pleural effusion or pneumothorax. Heart size is normal. IMPRESSION: 1. Improvement in now moderate bilateral airspace opacities consistent with COVID 19 pneumonia. Dictated by: Dictated on workstation # [id number]
[2020-12-02] MEDS ORDERED: CEFEPIME INJECTION 1,000 MG in WATER (STERILE) FOR INJECTION 10 ML IV ONE (12:45)
--- NOTE | 2020-12-02 12:51 | Progress Note - Hospitalist ---
Subjective HPI/CC On Admission Date Seen by Provider: Dec 02, 2020 Time Seen by Provider: 09:35 Chief complaint: COVID-19 pneumonia with sepsis History present illness: This is a 60-year-old white male who was diagnosed with Covid 9 days ago who presented to the ER with shortness of breath fever and lethargy. Patient was found to have hypotension responded to aggressive IV fluids and placed on BiPAP for hypoxia. Currently it is difficult to communicate due to BiPAP. We will initiate IV antibiotics and closely monitor since he is high risk for decompensation. Subjective/Events-last exam He is on BiPAP. He was unable to tolerate the Vapotherm. He does not feel short of breath. He still has a cough. We discussed the likely need for intubation soon and he is agreeable if it is needed. We also discussed Actemra and he agrees to its use and to the emergency use authorization. Objective Exam Vital Signs Vital Signs Date Time Temp Pulse Resp B/P (MAP) Pulse Ox O2 Delivery O2 Flow Rate FiO2 12/02/20 12:00 74 26 134/78 (96) 97 NIV Bilevel 80.00 12/02/20 08:00 36.9 12/02/20 08:00 100 Capillary Refill : Less Than 3 Seconds General Appearance: No Apparent Distress, Obese Respiratory: No Respiratory Distress, Decreased Breath Sounds, Other (Wearing BiPAP) Cardiovascular: Regular Rate, Rhythm, No Edema, No Murmur Gastrointestinal: Normal Bowel Sounds, Non Tender, Soft Extremity: Normal Inspection, Non Tender, No Pedal Edema Neurologic/Psychiatric: Alert, Oriented x3 Skin: Normal Color, Warm/Dry Results/Procedures Lab Laboratory Tests 12/02/20 03:20 Patient resulted labs reviewed. Imaging: Reviewed Imaging Report Assessment/Plan Assessment and Plan Assess & Plan/Chief Complaint Acute respiratory failure due to COVID-19 Hypercoagulable state associated with COVID-19 Decadron s/p Remdesivir BiPAP, unable to maintain oxygen on Vapotherm May require intubation soon Procalcitonin mildly elevated Obtain sputum culture Chest xray pending Resume Cefepime, s/p previous course of antibiotics CRP trending up Begin Actemra, discussed risks/benefits/EUA use and he agrees Ddimer trended up Continue therapeutic Lovenox Consider repeat CTA to rule out PE once more stable oxygenation TeleICU following Obesity Clinically significant, no acute management needs Critical Care Critically Ill Patient Diagnosis/Problems Diagnosis/Problems (1) Acute respiratory failure due to COVID-19 Status: Acute (2) Hypercoagulable state associated with COVID-19 Status: Acute (3) Obesity Status: Chronic MANUEL JOSHI MD Dec 02, 2020 12:51
[2020-12-02] MEDS ORDERED: TOCILIZUMAB INJECTION (NON-FOR 800 MG in NS (IVPB) 60 ML IV NR (13:00)
[2020-12-02] MEDS: CEFEPIME INJECTION 1,000 MG in WATER (STERILE) FOR INJECTION 10 ML IV SCH ×2 (13:27→19:43)
[2020-12-02] MEDS: MELATONIN 3 MG TABLET PO SCH (20:02)
[2020-12-03] MEDS: CEFEPIME INJECTION 1,000 MG in WATER (STERILE) FOR INJECTION 10 ML IV SCH ×4 (00:01→18:21)
[2020-12-03] MEDS: RT-ALBUTEROL HFA 8.5 GM INHALER IH SCH ×4 (01:18→20:09)
[2020-12-03] MEDS: guaiFENesin/CODEINE (ROBITUSSIN AC) 10ML UDC PO PRN ×3 (04:14→22:14)
[2020-12-03 04:46] LABS: BASOPHILS % (AUTO) 0 % (0-10); EOSINOPHILS % (AUTO) 1 % (0-10); HEMATOCRIT 41 % (40-54); HEMOGLOBIN 13.7 g/dL (13.3-17.7); LYMPHOCYTES # (AUTO) 0.5 10^3/uL (1.0-4.0); LYMPHOCYTES % (AUTO) 8 % (12-44); MEAN CORPUSCULAR HEMOGLOBIN 28 pg (25-34); MEAN CORPUSCULAR HGB CONC 34 g/dL (32-36); MEAN CORPUSCULAR VOLUME 83 fL (80-99); MEAN PLATELET VOLUME 9.5 fL (9.0-12.2); MONOCYTES # (AUTO) 0.2 10^3/uL (0.0-1.0); MONOCYTES % (AUTO) 2 % (0-12); NEUTROPHILS # (AUTO) 5.6 10^3/uL (1.8-7.8); NEUTROPHILS % (AUTO) 89 % (42-75); PLATELET COUNT 278 10^3/uL (130-400); WHITE BLOOD COUNT 6.3 10^3/uL (4.3-11.0)
[2020-12-03 04:54] LABS: POTASSIUM 4.6 MMOL/L (3.6-5.0)
[2020-12-03 04:55] LABS: CALCIUM 8.6 MG/DL (8.5-10.1)
[2020-12-03 05:00] LABS: CREATININE SERUM 0.73 MG/DL (0.60-1.30); PHOSPHORUS 2.4 MG/DL (2.3-4.7)
[2020-12-03 05:03] LABS: MAGNESIUM 2.2 MG/DL (1.6-2.4)
[2020-12-03] MEDS: MAGNESIUM 1 GM/100 ML IVPB 100 ML IV SCH (05:19)
[2020-12-03] MEDS: KCL 20 MEQ TAB (K-DUR) PO SCH (05:19)
[2020-12-03] MEDS: POTASSIUM CL 10MEQ/50ML IVPB 50 ML IV SCH (05:19)
[2020-12-03] MEDS: SENNA W/DOCUSATE (SENOKOT S) TABLET PO SCH ×2 (08:43→20:47)
[2020-12-03] MEDS: polyethylene glycoL POWDER 17 GM (MIRALAX) PACK PO SCH ×2 (08:44→20:47)
[2020-12-03] MEDS: PANTOPRAZOLE 40 MG (PROTONIX) TAB PO SCH (08:44)
[2020-12-03] MEDS: ENOXAPARIN 100 MG/1 ML (LOVENOX) SYR SC SCH ×2 (08:44→20:47)
[2020-12-03] MEDS: LACTATED RINGERS 1,000 ML IV SCH (09:25)
[2020-12-03 09:46] VITALS: BP 109/61
[2020-12-03] MEDS: UMECLIDINIUM BROMIDE (INCRUSE ELLIPTA) 7'S IH SCH (09:46)
--- NOTE | 2020-12-03 10:08 | Tele-ICU Progress Note ---
Subjective Date Seen by a Provider: Dec 03, 2020 Time Seen by a Provider: 10:08 Sepsis Event Evaluation Height, Weight, BMI Height: '" Weight: lbs. oz. kg; 34.90 BMI Method: Exam Exam Patient acknowledged, consented, and participated in this virtual visit which was conducted using real time audio/video Vital Signs Date Time Temp Pulse Resp B/P (MAP) Pulse Ox O2 Delivery O2 Flow Rate FiO2 12/03/20 09:46 80 39 90 80.00 12/03/20 08:00 92 Vapotherm 40.00 100 12/03/20 08:00 35.9 12/03/20 07:00 62 12/03/20 06:00 64 98/56 (70) 97 Vapotherm 40.00 100.00 12/03/20 05:00 64 21 111/70 (86) 95 Vapotherm 40.00 100.00 12/03/20 04:14 35.7 12/03/20 04:00 78 22 113/72 (91) 86 Vapotherm 40.00 100.00 12/03/20 04:00 93 Vapotherm 40.00 100 12/03/20 03:00 66 18 114/77 (99) 95 Vapotherm 40.00 100.00 12/03/20 02:00 66 19 122/78 (97) 90 Vapotherm 40.00 100.00 12/03/20 01:19 91 Vapotherm 40.00 100 12/03/20 01:00 64 18 109/72 (87) 91 Vapotherm 40.00 100.00 12/03/20 01:00 64 12/03/20 00:00 64 20 116/70 (85) 93 Vapotherm 40.00 100.00 12/02/20 23:59 93 Vapotherm 40.00 100 12/02/20 23:56 35.6 12/02/20 23:00 69 19 100/72 (82) 98 Vapotherm 40.00 100.00 12/02/20 22:00 67 18 99/71 (81) 100 Vapotherm 40.00 100.00 12/02/20 21:57 99 Vapotherm 40.00 100 12/02/20 21:00 68 17 113/75 (88) 100 Vapotherm 40.00 100.00 12/02/20 20:00 94 Vapotherm 40.00 100 12/02/20 20:00 80 30 118/75 (89) 96 Vapotherm 40.00 100.00 12/02/20 19:48 36.3 40.00 100.00 12/02/20 19:12 89 Vapotherm 40.00 100 12/02/20 19:00 83 23 115/71 (86) 93 Vapotherm 40.00 100.00 12/02/20 19:00 83 12/02/20 18:00 69 21 120/79 (93) 94 Vapotherm 40.00 100.00 12/02/20 17:00 70 19 114/79 (91) 96 Vapotherm 40.00 100.00 12/02/20 16:00 92 Vapotherm 35.00 100 12/02/20 16:00 73 18 125/75 (101) 96 Vapotherm 40.00 100.00 12/02/20 15:00 77 14 116/71 (87) 98 Vapotherm 40.00 100.00 12/02/20 14:50 96 Vapotherm 40.00 100 12/02/20 14:00 81 23 105/76 (86) 96 Vapotherm 40.00 100.00 12/02/20 13:50 37.0 Vapotherm 40.00 100.00 12/02/20 13:00 80 23 114/85 (95) 98 NIV Bilevel 80.00 12/02/20 12:48 79 12/02/20 12:30 95 Vapotherm 40.00 100 12/02/20 12:00 74 26 134/78 (96) 97 NIV Bilevel 80.00 12/02/20 11:00 82 20 131/82 (98) 97 NIV Bilevel 80.00 I & O 12/03/20 07:00 Intake Total 920 ml Output Total 2375 ml Balance -1455 ml Height & Weight Height: '" Weight: lbs. oz. kg; 34.90 BMI Method: General Appearance: No Apparent Distress, Obese HEENT: PERRL/EOMI, Normal ENT Inspection, Pharynx Normal, Moist Mucous Membranes Neck: Full Range of Motion, Normal Inspection, Non Tender Respiratory: No Respiratory Distress, Decreased Breath Sounds, Other (Wearing BiPAP) Cardiovascular: Regular Rate, Rhythm, No Edema, No Murmur Capillary Refill: Less Than 3 Seconds Gastrointestinal: normal bowel sounds, non tender, soft (has midlinte) Extremity: Normal Inspection, Non Tender, No Pedal Edema Neurologic/Psychiatric: Alert, Oriented x3 Skin: Normal Color, Warm/Dry Lymphatic: No Adenopathy Results Lab Laboratory Tests 12/02/20 03:20 12/03/20 04:10 Assessment/Plan Assessment/Plan (Tele-ICU Physician , Progress Note ) Available chart/ vitals / labs / Images reviewed Video assessment done using teleICU camera, rest of exam as per RN Discussed with RN Events overnight : tolerated vapotherm Afebrile I/O = NEG Drips: LR 50 Pressors: , hemodynamically stable EXAM PER RN Consultants: Hospital course: 11/26 from ER with hypotension 80/50 and 86% RA ( covid ) 11/27 - DID NOT TOLERATED VAPOTHERM, ON BIAPAP 11/28 - 30L 100% vapotherm + BIPAP prn 11/29 - bipap 15/02 65% rr22 tv 600 MV 13L 12/02 vapotherm 40L 100% A/P Acute hypoxic resp failure with COVID PNA , no PE on CT 11/23 and 11/26 VAPOTHERM 40 L 100% -> NIPPV PRN AT NIGHT -prone position if able - sides mostly - conservative fluid strategy (aim for even or negative fluid balance - monitor carefully - s/p contrast boluses x2 - cought persistent - on codeine [id number]-0/COVID-19 infection- ( symptoms11/16 , Dx 11/20 ) -Remdesivir finished -Steroids IV - started -Hypercoagulable state , DDIMER 3.7 on 11/26 -> lovenox ppx dose - 11/30 d dimer 11 ->lovenox 100 q 12 ( no evidence of large PE on CT 11/23 and 11/26 ) = CRP IS ELEVATED - acTEMRA 12/02 Monitor for superimposed bact PNA -PCT 0.16, CEFEPIME AND Z MAX STARTED 11/26 - finished 5 day course =pct 0.38 ON 12/02 - CONT ON CEFEPIME - sputum cx pending transaminitis likely due to COVID-19. Lines : periph, (Central Line Necessity Reviewed) Gaston: OG: Nutrition: PO Analgesia: na Anxiety/ delirium na VTE Prophylaxis: lovenox 40 Stress Ulcer Prophylaxis: taking po Glycemic Control: OK Plans in collaboration with bedside consultants and IM MDs. Discussed with RN to reach out if any questions or concerns A total of 32 minutes of critical care time was devoted to this patient today, required to treat and/or prevent further deterioration of critical care condition ( as above KAYE PEDERSEN MD Dec 03, 2020 10:08
[2020-12-03 14:04] VITALS: BP 130/89
--- NOTE | 2020-12-03 15:42 | Progress Note ---
Subjective Subjective/Events-last exam Patient had just moved from chair to bed and saturations around 80%, after 5 mins of rest saturations had increased to 85%, RT called to the room. Patient states that he does not feel much different from the last few days. No new ON events Review of Systems General: Fatigue, Malaise Pulmonary: Dyspnea, Cough Cardiovascular: No: Chest Pain, Palpitations, Edema Gastrointestinal: No: Nausea, Vomiting, Abdominal Pain, Diarrhea, Constipation Neurological: Weakness, Incoordination Objective Exam Last Set of Vital Signs Vital Signs Date Time Temp Pulse Resp B/P (MAP) Pulse Ox O2 Delivery O2 Flow Rate FiO2 12/03/20 14:04 80 36 93 70.00 12/03/20 12:00 NIV Bilevel 80 12/03/20 11:40 36.4 12/03/20 11:00 126/82 (97) Capillary Refill : Less Than 3 Seconds I&O Intake and Output 12/03/20 00:00 Intake Total 1070 ml Output Total 2800 ml Balance -1730 ml Intake Oral 1070 ml Output Urine Total 2800 ml General: Alert, Oriented X3, Moderate Distress (pursed lip breathing) Lungs: Other (diminished breath sounds, increased work of breathing) Heart: Regular Rate Abdomen: Soft, No Tenderness Extremities: No Edema, No Tenderness/Swelling Skin: No Rashes, No Breakdown Neuro: Normal Speech Results/Procedures Lab Laboratory Tests 12/03/20 04:10: White Blood Count 6.3, Red Blood Count 4.90, Hemoglobin 13.7, Hematocrit 41, Mean Corpuscular Volume 83, Mean Corpuscular Hemoglobin 28, Mean Corpuscular Hemoglobin Concent 34, Red Cell Distribution Width 14.4, Platelet Count 278, Mean Platelet Volume 9.5, Immature Granulocyte % (Auto) 1, Neutrophils (%) (Auto) 89H, Lymphocytes (%) (Auto) 8L, Monocytes (%) (Auto) 2, Eosinophils (%) (Auto) 1, Basophils (%) (Auto) 0, Neutrophils # (Auto) 5.6, Lymphocytes # (Auto) 0.5L, Monocytes # (Auto) 0.2, Eosinophils # (Auto) 0.0, Basophils # (Auto) 0.0, Immature Granulocyte # (Auto) 0.0, Sodium Level 135, Potassium Level 4.6, Chloride Level 103, Carbon Dioxide Level 19L, Anion Gap 13, Blood Urea Nitrogen 19H, Creatinine 0.73, Estimat Glomerular Filtration Rate 109, BUN/Creatinine Ratio 26, Glucose Level 109H, Calcium Level 8.6, Phosphorus Level 2.4, Magnesium Level 2.2 Assessment/Plan Assessment/Plan (1) Acute respiratory failure due to COVID-19 Status: Acute Assessment & Plan: 12/03: Continues to need close to max support on vapotherm and after exercise takes >10 mins to recover, appreciate eICU recommendations, encouraged proning with patient (2) Pneumonia due to COVID-19 virus Status: Acute Assessment & Plan: 12/03: Currently on Cefepime, completed azithromycin (3) Hypercoagulable state associated with COVID-19 Status: Acute Assessment & Plan: 12/03: CRP and d-dimer elevated, patient on treatment dosing of lovenox BHARAT ART MD Dec 03, 2020 15:42
[2020-12-03] MEDS: MELATONIN 3 MG TABLET PO SCH (20:47)
[2020-12-03 22:24] VITALS: BP 130/89
[2020-12-04] MEDS: CEFEPIME INJECTION 1,000 MG in WATER (STERILE) FOR INJECTION 10 ML IV SCH ×4 (00:36→18:28)
[2020-12-04 01:26] VITALS: BP 108/64
[2020-12-04 02:35] VITALS: BP 130/89
[2020-12-04] MEDS: RT-ALBUTEROL HFA 8.5 GM INHALER IH SCH ×4 (02:35→21:16)
[2020-12-04] MEDS: guaiFENesin/CODEINE (ROBITUSSIN AC) 10ML UDC PO PRN ×3 (03:03→21:09)
[2020-12-04 04:46] LABS: BASOPHILS % (AUTO) 0 % (0-10); EOSINOPHILS # (AUTO) 0.1 10^3/uL (0.0-0.3); EOSINOPHILS % (AUTO) 1 % (0-10); HEMATOCRIT 45 % (40-54); HEMOGLOBIN 14.8 g/dL (13.3-17.7); LYMPHOCYTES # (AUTO) 0.6 10^3/uL (1.0-4.0); LYMPHOCYTES % (AUTO) 6 % (12-44); MEAN CORPUSCULAR HEMOGLOBIN 28 pg (25-34); MEAN CORPUSCULAR HGB CONC 33 g/dL (32-36); MEAN CORPUSCULAR VOLUME 83 fL (80-99); MEAN PLATELET VOLUME 9.7 fL (9.0-12.2); MONOCYTES # (AUTO) 0.3 10^3/uL (0.0-1.0); MONOCYTES % (AUTO) 3 % (0-12); NEUTROPHILS # (AUTO) 9.2 10^3/uL (1.8-7.8); NEUTROPHILS % (AUTO) 89 % (42-75); PLATELET COUNT 279 10^3/uL (130-400); WHITE BLOOD COUNT 10.3 10^3/uL (4.3-11.0)
[2020-12-04 04:57] LABS: POTASSIUM 4.7 MMOL/L (3.6-5.0)
[2020-12-04 04:58] LABS: CALCIUM 8.7 MG/DL (8.5-10.1)
[2020-12-04 05:02] LABS: CREATININE SERUM 0.79 MG/DL (0.60-1.30); PHOSPHORUS 2.8 MG/DL (2.3-4.7)
[2020-12-04 05:04] LABS: MAGNESIUM 2.2 MG/DL (1.6-2.4)
[2020-12-04] MEDS: POTASSIUM CL 10MEQ/50ML IVPB 50 ML IV SCH (05:10)
[2020-12-04] MEDS: MAGNESIUM 1 GM/100 ML IVPB 100 ML IV SCH (05:11)
[2020-12-04] MEDS: KCL 20 MEQ TAB (K-DUR) PO SCH (05:11)
[2020-12-04 05:25] LABS: LYMPHOCYTES % (MANUAL) 4 %; MICROCYTOSIS SLIGHT; MONOCYTES % (MANUAL) 2 %; NEUTROPHILS % (MANUAL) 94 %; TOXIC GRANULATION/VACUOLAZATIO 1+
[2020-12-04] MEDS: LACTATED RINGERS 1,000 ML IV SCH (05:29)
[2020-12-04] MEDS: UMECLIDINIUM BROMIDE (INCRUSE ELLIPTA) 7'S IH SCH (07:31)
[2020-12-04] MEDS: ENOXAPARIN 100 MG/1 ML (LOVENOX) SYR SC SCH ×2 (08:55→20:58)
[2020-12-04] MEDS: PANTOPRAZOLE 40 MG (PROTONIX) TAB PO SCH (08:56)
[2020-12-04] MEDS: SENNA W/DOCUSATE (SENOKOT S) TABLET PO SCH ×2 (08:56→20:58)
[2020-12-04] MEDS: polyethylene glycoL POWDER 17 GM (MIRALAX) PACK PO SCH ×2 (08:56→20:58)
--- NOTE | 2020-12-04 14:54 | Tele-ICU Progress Note ---
Subjective Date Seen by a Provider: Dec 04, 2020 Time Seen by a Provider: 14:53 Sepsis Event Evaluation Height, Weight, BMI Height: '" Weight: lbs. oz. kg; 34.90 BMI Method: Exam Exam Patient acknowledged, consented, and participated in this virtual visit which was conducted using real time audio/video Vital Signs Date Time Temp Pulse Resp B/P (MAP) Pulse Ox O2 Delivery O2 Flow Rate FiO2 12/04/20 14:42 91 Vapotherm 40.00 100 12/04/20 14:00 82 49 123/67 (85) 91 NIV Bilevel 70.00 12/04/20 13:00 77 46 120/83 (95) 97 NIV Bilevel 70.00 12/04/20 13:00 70 12/04/20 12:00 Vapotherm 40.00 100 12/04/20 12:00 59 31 154/72 (99) 82 NIV Bilevel 70.00 12/04/20 11:30 36.7 12/04/20 11:12 91 Vapotherm 40.00 100 12/04/20 11:00 76 29 146/79 (101) 89 NIV Bilevel 70.00 12/04/20 10:00 69 35 118/75 (89) 89 NIV Bilevel 70.00 12/04/20 09:00 66 29 88 NIV Bilevel 70.00 12/04/20 08:00 Vapotherm 40.00 100 12/04/20 08:00 59 28 131/75 (93) 89 NIV Bilevel 70.00 12/04/20 07:35 91 Vapotherm 40.00 100 12/04/20 07:30 36.4 12/04/20 07:00 69 12/04/20 07:00 64 28 94 NIV Bilevel 70.00 12/04/20 06:21 36.2 64 119/80 (93) 95 NIV Bilevel 70.00 12/04/20 05:32 63 28 117/73 (88) 95 NIV Bilevel 70.00 12/04/20 04:01 36.5 60 106/73 (84) 96 NIV Bilevel 70.00 12/04/20 04:00 67 29 106/73 (84) 95 NIV Bilevel 70.00 12/04/20 03:20 94 NIV Bilevel 70 12/04/20 03:00 81 136/107 (117) 93 NIV Bilevel 70.00 12/04/20 02:59 65 121/68 (85) 93 NIV Bilevel 70.00 12/04/20 02:35 84 36 94 70.00 12/04/20 01:26 37.2 68 95 12/04/20 01:01 65 124/71 (88) 94 NIV Bilevel 70.00 12/04/20 01:00 71 12/04/20 00:00 68 108/64 (79) 95 NIV Bilevel 70.00 12/03/20 23:18 94 NIV Bilevel 70 12/03/20 23:17 71 111/75 (87) 95 NIV Bilevel 70.00 12/03/20 23:00 67 111/75 (87) 97 NIV Bilevel 70.00 12/03/20 22:24 74 36 95 70.00 12/03/20 22:16 74 113/73 (86) 95 NIV Bilevel 70.00 12/03/20 22:00 79 113/73 (86) 96 NIV Bilevel 70.00 12/03/20 21:00 77 109/74 (86) 94 NIV Bilevel 70.00 12/03/20 21:00 81 109/74 (86) 95 NIV Bilevel 70.00 12/03/20 20:51 85 116/61 (79) 94 NIV Bilevel 70.00 12/03/20 20:09 94 Vapotherm 40.00 100 12/03/20 20:00 94 NIV Bilevel 70 12/03/20 20:00 84 116/61 (79) 94 NIV Bilevel 70.00 12/03/20 19:00 75 12/03/20 19:00 75 123/66 (85) 93 NIV Bilevel 70.00 12/03/20 18:00 69 120/79 (93) 94 Vapotherm 40.00 100.00 12/03/20 17:00 73 134/82 (99) 94 Vapotherm 40.00 100.00 12/03/20 16:00 37.2 12/03/20 16:00 94 NIV Bilevel 80 12/03/20 16:00 66 131/84 (100) 94 Vapotherm 40.00 100.00 12/03/20 15:00 67 135/89 (104) 94 Vapotherm 40.00 100.00 I & O 12/04/20 07:00 Intake Total 1900 ml Output Total 2400 ml Balance -500 ml Height & Weight Height: '" Weight: lbs. oz. kg; 34.90 BMI Method: General Appearance: No Apparent Distress, Obese HEENT: PERRL/EOMI, Normal ENT Inspection, Pharynx Normal, Moist Mucous Membranes Neck: Full Range of Motion, Normal Inspection, Non Tender Respiratory: No Respiratory Distress, Decreased Breath Sounds, Other (Wearing BiPAP) Cardiovascular: Regular Rate, Rhythm, No Edema, No Murmur Capillary Refill: Less Than 3 Seconds Gastrointestinal: normal bowel sounds, non tender, soft (has midlinte) Extremity: Normal Inspection, Non Tender, No Pedal Edema Neurologic/Psychiatric: Alert, Oriented x3 Skin: Normal Color, Warm/Dry Lymphatic: No Adenopathy Results Lab Laboratory Tests 12/03/20 04:10 12/04/20 03:00 Assessment/Plan Assessment/Plan (Tele-ICU Physician , Progress Note ) Available chart/ vitals / labs / Images reviewed Video assessment done using teleICU camera, rest of exam as per RN Discussed with RN Events overnight : tolerated vapotherm Afebrile I/O = NEG Drips: LR 50 Pressors: , hemodynamically stable EXAM PER RN Consultants: Hospital course: 11/26 from ER with hypotension 80/50 and 86% RA ( covid ) 11/27 - DID NOT TOLERATED VAPOTHERM, ON BIAPAP 11/28 - 30L 100% vapotherm + BIPAP prn 11/29 - bipap 15/10 65% rr22 tv 600 MV 13L 12/02 vapotherm 40L 100% A/P Acute hypoxic resp failure with COVID PNA , no PE on CT 11/23 and 11/26 VAPOTHERM 40 L 100% -> NIPPV PRN AT NIGHT ( 70% ) -prone position if able - sides mostly - conservative fluid strategy (aim for even or negative fluid balance - monitor carefully - s/p contrast boluses x2 - cought persistent - on codeine [id number]-2/COVID-19 infection- ( symptoms11/16 , Dx 11/20 ) -Remdesivir finished -Steroids IV - started -Hypercoagulable state , DDIMER 3.7 on 11/26 -> lovenox ppx dose - 7/30 d dimer 11 ->lovenox 100 q 12 ( no evidence of large PE on CT 11/23 and 11/26 ) = CRP IS ELEVATED - acTEMRA 12/02 Monitor for superimposed bact PNA -PCT 0.16, CEFEPIME AND Z MAX STARTED 11/26 - finished 5 day course =pct 0.38 ON 12/02 - CONT ON CEFEPIME - sputum cx pending ? transaminitis likely due to COVID-19. Lines : periph, (Central Line Necessity Reviewed) Gaston: OG: Nutrition: PO Analgesia: na Anxiety/ delirium na VTE Prophylaxis: lovenox 40 Stress Ulcer Prophylaxis: taking po Glycemic Control: OK Plans in collaboration with bedside consultants and IM MDs. Discussed with RN to reach out if any questions or concerns A total of 32 minutes of critical care time was devoted to this patient today, required to treat and/or prevent further deterioration of critical care condition ( as above KAYE PEDERSEN MD Dec 04, 2020 14:54
[2020-12-04] MEDS: MELATONIN 3 MG TABLET PO SCH (20:58)
--- NOTE | 2020-12-04 21:34 | Progress Note ---
Subjective Subjective/Events-last exam Patient states that he is stable. Gets short of breath with any movement. Tolerating PO diet. BM yesterday. Review of Systems Pulmonary: Dyspnea, Cough Cardiovascular: No: Chest Pain, Palpitations Gastrointestinal: No: Nausea, Vomiting, Abdominal Pain, Diarrhea, Constipation Genitourinary: No Dysuria, No Frequency Neurological: Weakness, Incoordination Objective Exam Last Set of Vital Signs Vital Signs Date Time Temp Pulse Resp B/P (MAP) Pulse Ox O2 Delivery O2 Flow Rate FiO2 12/04/20 21:16 91 Vapotherm 40.00 100 12/04/20 19:55 36.0 12/04/20 18:00 70 22 130/81 (97) Capillary Refill : Less Than 3 Seconds I&O Intake and Output 12/04/20 00:00 Intake Total 1800 ml Output Total 2300 ml Balance -500 ml Intake Oral 1800 ml Output Urine Total 2300 ml # Voids 1 # Bowel Movements 2 General: Alert, Oriented X3, Moderate Distress Lungs: Other (diminished breath sounds, diffuse wheezing) Heart: Regular Rate, No Murmurs Abdomen: Normal Bowel Sounds, Soft, No Tenderness, No Masses Extremities: No Tenderness/Swelling Skin: No Rashes, No Breakdown Neuro: Normal Speech Results/Procedures Lab Laboratory Tests 12/04/20 03:00: White Blood Count 10.3, Red Blood Count 5.36, Hemoglobin 14.8, Hematocrit 45, Mean Corpuscular Volume 83, Mean Corpuscular Hemoglobin 28, Mean Corpuscular Hemoglobin Concent 33, Red Cell Distribution Width 14.3, Platelet Count 279, Mean Platelet Volume 9.7, Immature Granulocyte % (Auto) 1, Neutrophils (%) (Auto) 89H, Lymphocytes (%) (Auto) 6L, Monocytes (%) (Auto) 3, Eosinophils (%) (Auto) 1, Basophils (%) (Auto) 0, Neutrophils # (Auto) 9.2H, Lymphocytes # (Auto) 0.6L, Monocytes # (Auto) 0.3, Eosinophils # (Auto) 0.1, Basophils # (Auto) 0.0, Immature Granulocyte # (Auto) 0.1, Neutrophils % (Manual) 94, Lymphocytes % (Manual) 4, Monocytes % (Manual) 2, Toxic Granulation 1+, Microcytosis SLIGHT, Sodium Level 134L, Potassium Level 4.7, Chloride Level 103, Carbon Dioxide Level 19L, Anion Gap 12, Blood Urea Nitrogen 22H, Creatinine 0.79, Estimat Glomerular Filtration Rate 99, BUN/Creatinine Ratio 28, Glucose Level 103, Calcium Level 8.7, Phosphorus Level 2.8, Magnesium Level 2.2 Microbiology 12/03/20 Gram Stain - Final, Resulted 12/03/20 Sputum Culture - Preliminary, Resulted Usual upper respiratory stephie Assessment/Plan Assessment/Plan (1) Acute respiratory failure due to COVID-19 Status: Acute Assessment & Plan: 12/03: Continues to need close to max support on vapotherm and after exercise takes >10 mins to recover, appreciate eICU recommendations, encouraged proning with patient 12/04: Patient is not tolerating titration, will likely need long titrate, spoke with landmark to look at patient (2) Pneumonia due to COVID-19 virus Status: Acute Assessment & Plan: 12/03: Currently on Cefepime, completed azithromycin (3) Hypercoagulable state associated with COVID-19 Status: Acute Assessment & Plan: 12/03: CRP and d-dimer elevated, patient on treatment dosing of lovenox BHARAT ART MD Dec 04, 2020 21:34
[2020-12-04] MEDS: ALPRAZolam 0.25 MG (XANAX) TAB PO PRN (22:55)
[2020-12-04] MEDS: ACETAMINOPHEN 325 MG TABLET PO PRN (22:56)
[2020-12-05] MEDS: CEFEPIME INJECTION 1,000 MG in WATER (STERILE) FOR INJECTION 10 ML IV SCH ×4 (02:08→19:56)
[2020-12-05] MEDS: LACTATED RINGERS 1,000 ML IV SCH ×2 (02:08→23:31)
[2020-12-05] MEDS: RT-ALBUTEROL HFA 8.5 GM INHALER IH SCH ×4 (02:10→21:31)
[2020-12-05 04:57] LABS: BASOPHILS % (AUTO) 0 % (0-10); EOSINOPHILS # (AUTO) 0.3 10^3/uL (0.0-0.3); EOSINOPHILS % (AUTO) 2 % (0-10); HEMATOCRIT 46 % (40-54); HEMOGLOBIN 15.3 g/dL (13.3-17.7); LYMPHOCYTES # (AUTO) 0.5 10^3/uL (1.0-4.0); LYMPHOCYTES % (AUTO) 4 % (12-44); MEAN CORPUSCULAR HEMOGLOBIN 28 pg (25-34); MEAN CORPUSCULAR HGB CONC 33 g/dL (32-36); MEAN CORPUSCULAR VOLUME 83 fL (80-99); MEAN PLATELET VOLUME 9.7 fL (9.0-12.2); MONOCYTES # (AUTO) 0.2 10^3/uL (0.0-1.0); MONOCYTES % (AUTO) 2 % (0-12); NEUTROPHILS % (AUTO) 91 % (42-75); PLATELET COUNT 271 10^3/uL (130-400)
[2020-12-05 05:08] LABS: POTASSIUM 4.5 MMOL/L (3.6-5.0)
[2020-12-05 05:10] LABS: CALCIUM 8.7 MG/DL (8.5-10.1)
[2020-12-05 05:14] LABS: CREATININE SERUM 0.73 MG/DL (0.60-1.30)
[2020-12-05] MEDS: KCL 20 MEQ TAB (K-DUR) PO SCH (05:40)
[2020-12-05] MEDS: POTASSIUM CL 10MEQ/50ML IVPB 50 ML IV SCH (05:40)
[2020-12-05] MEDS: MAGNESIUM 1 GM/100 ML IVPB 100 ML IV SCH (05:40)
[2020-12-05] MEDS: UMECLIDINIUM BROMIDE (INCRUSE ELLIPTA) 7'S IH SCH (06:35)
--- NOTE | 2020-12-05 06:45 | Diagnostic Imaging Report ---
INDICATION: Pneumonia. Comparison with 12/02/2020. FINDINGS: There has been increased bilateral basilar atelectasis. There are also air bronchograms now present in the lung bases bilaterally. Upper lungs show minimal infiltrate. Heart is not enlarged. No pneumothorax or pleural effusion. IMPRESSION: Increasing bilateral basilar atelectasis as well as probable increasing infiltrates in the lung bases when compared with previous exam. Dictated by: Dictated on workstation # [id number]
--- NOTE | 2020-12-05 08:49 | Tele-ICU Progress Note ---
Subjective Date Seen by a Provider: Dec 05, 2020 Time Seen by a Provider: 15:42 Subjective/Events-last exam COVID PNA, on BiPAP 16/8 FiO2 now up to 100%, SpO2 in mid 90's, drops is mask taken off and takes 10-15 min to recover, not showing increased WOB if on BiPAP On full anti coagulation Lovenox x100 bid, On IV decadron on IV cefepime I reviewed CXR today, shows extensive bilateral infiltrates ABG 7.47/pCO2 28/pO2 61, Review of Systems Pulmonary: Dyspnea (SOB if takes off BiPAP), Cough Sepsis Event Evaluation Height, Weight, BMI Height: '" Weight: lbs. oz. kg; 34.90 BMI Method: Exam Exam Patient acknowledged, consented, and participated in this virtual visit which was conducted using real time audio/video Vital Signs Date Time Temp Pulse Resp B/P (MAP) Pulse Ox O2 Delivery O2 Flow Rate FiO2 12/05/20 08:00 36.6 12/05/20 06:36 69 36 100.00 12/05/20 06:00 75 14 119/73 (88) 96 NIV Bilevel 70.00 12/05/20 05:00 63 17 110/74 (89) 99 NIV Bilevel 70.00 12/05/20 04:00 NIV Bilevel 70 12/05/20 04:00 73 24 113/80 (91) 97 NIV Bilevel 70.00 12/05/20 03:00 66 21 98/64 (75) 94 NIV Bilevel 70.00 12/05/20 02:10 69 36 100.00 12/05/20 02:00 66 19 116/72 (90) 92 NIV Bilevel 70.00 12/05/20 01:00 64 12/05/20 01:00 64 21 111/72 (81) 94 Vapotherm 40.00 100.00 12/05/20 00:00 67 21 117/72 (84) 93 Vapotherm 40.00 100.00 12/04/20 23:06 Vapotherm 40.00 100 12/04/20 23:00 73 18 118/78 (92) 94 Vapotherm 40.00 100.00 12/04/20 22:00 80 26 127/75 (92) 95 Vapotherm 40.00 100.00 8/3/21 21:16 91 Vapotherm 40.00 100 12/04/20 21:08 Vapotherm 40.00 100.00 12/04/20 21:00 70 19 133/66 (80) 93 NIV Bilevel 70.00 12/04/20 20:00 Vapotherm 40.00 100 12/04/20 20:00 74 27 140/95 (105) 94 NIV Bilevel 70.00 12/04/20 19:55 36.0 NIV Bilevel 12/04/20 19:50 64 48 163/122 (136) 89 Vapotherm 40.00 100.00 12/04/20 19:00 75 12/04/20 19:00 68 29 126/85 (96) 95 Vapotherm 40.00 100.00 12/04/20 18:07 94 Vapotherm 40.00 100 12/04/20 18:00 70 22 130/81 (97) 96 Vapotherm 40.00 100.00 12/04/20 17:00 74 25 134/80 (98) 97 Vapotherm 40.00 100.00 12/04/20 16:20 36.7 Vapotherm 40.00 100.00 12/04/20 16:00 Vapotherm 40.00 100 12/04/20 16:00 78 32 116/74 (88) 95 NIV Bilevel 70.00 12/04/20 15:00 70 19 116/69 (85) 93 NIV Bilevel 70.00 12/04/20 14:42 91 Vapotherm 40.00 100 12/04/20 14:00 82 49 123/67 (85) 91 NIV Bilevel 70.00 12/04/20 13:00 77 46 120/83 (95) 97 NIV Bilevel 70.00 12/04/20 13:00 70 12/04/20 12:00 Vapotherm 40.00 100 12/04/20 12:00 59 31 154/72 (99) 82 NIV Bilevel 70.00 12/04/20 11:30 36.7 12/04/20 11:12 91 Vapotherm 40.00 100 12/04/20 11:00 76 29 146/79 (101) 89 NIV Bilevel 70.00 12/04/20 10:00 69 35 118/75 (89) 89 NIV Bilevel 70.00 12/04/20 09:00 66 29 88 NIV Bilevel 70.00 I & O 12/05/20 07:00 Intake Total 630 ml Output Total 2525 ml Balance -1895 ml Height & Weight Height: '" Weight: lbs. oz. kg; 34.90 BMI Method: General Appearance: No Apparent Distress, Mild Distress, Obese HEENT: PERRL/EOMI, Normal ENT Inspection, Pharynx Normal, Moist Mucous Membranes Neck: Full Range of Motion, Normal Inspection, Non Tender Respiratory: No Respiratory Distress, Decreased Breath Sounds, Other (Wearing BiPAP) Cardiovascular: Regular Rate, Rhythm, No Edema, No Murmur Capillary Refill: Less Than 3 Seconds Gastrointestinal: normal bowel sounds, non tender, soft (has midlinte) Extremity: Normal Inspection, Non Tender, No Pedal Edema Neurologic/Psychiatric: Alert, Oriented x3 Skin: Normal Color, Warm/Dry Lymphatic: No Adenopathy Results Lab Laboratory Tests 12/04/20 03:00 12/05/20 04:30 Assessment/Plan Assessment/Plan A/P Acute hypoxic resp failure with COVID PNA , no PE on CT 11/23 and 11/26 VAPOTHERM 40 L 100% -> NIPPV PRN AT NIGHT ( 70% ) -prone position if able - sides mostly - conservative fluid strategy (aim for even or negative fluid balance - monitor carefully - s/p contrast boluses x2 - cought persistent - on codeine just barely oxgyenating but will continue on same BiPAP settings for now, needs to be watched for enough drop in SpO2 to intubate [id number]-6/COVID-19 infection- ( symptoms11/16 , Dx 11/20 ) -Remdesivir finished -Steroids IV - started -Hypercoagulable state , DDIMER 3.7 on 11/26 -> lovenox ppx dose - 11/30 d dimer 11 ->lovenox 100 q 12 ( no evidence of large PE on CT 11/23 and 11/26 ) = CRP IS ELEVATED - acTEMRA 12/02 Monitor for superimposed bact PNA -PCT 0.16, CEFEPIME AND Z MAX STARTED 11/26 - finished 5 day course =pct 0.38 ON 12/02 - CONT ON CEFEPIME - sputum cx pending ? transaminitis likely due to COVID-19. Lines : periph, (Central Line Necessity Reviewed) Gaston: OG: Nutrition: PO Analgesia: na Anxiety/ delirium na VTE Prophylaxis: lovenox 40 Stress Ulcer Prophylaxis: taking po Glycemic Control: OK Critical Care: Critically Ill Patient Time spent with patient (mins): 30 VENKATESH LOPEZ MD Dec 05, 2020 08:49
[2020-12-05] MEDS: PANTOPRAZOLE 40 MG (PROTONIX) TAB PO SCH (09:21)
[2020-12-05] MEDS: ENOXAPARIN 100 MG/1 ML (LOVENOX) SYR SC SCH ×2 (09:21→19:56)
[2020-12-05] MEDS: guaiFENesin/CODEINE (ROBITUSSIN AC) 10ML UDC PO PRN ×2 (09:21→19:57)
[2020-12-05] MEDS: polyethylene glycoL POWDER 17 GM (MIRALAX) PACK PO SCH ×2 (09:29→20:05)
[2020-12-05] MEDS: SENNA W/DOCUSATE (SENOKOT S) TABLET PO SCH ×2 (09:30→20:05)
[2020-12-05 14:20] LABS: ABG BASE EXCESS -3.2 MMOL/L (-2.5-2.5); ABG OXYGEN SATURATION 93 % (94-100); ABG PCO2 28 MMHG (35-45); ABG PH 7.47 (7.37-7.43); ABG PO2 61 MMHG (79-93); ABG TCO2 21.2 MMOL/L (21.0-31.0)
[2020-12-05 14:21] LABS: ALLENS TEST POS; INSPIRED O2 100%; VENTILATOR YES
[2020-12-05 14:22] LABS: PATIENT TEMP 35.2
--- NOTE | 2020-12-05 21:55 | Progress Note ---
Subjective Subjective/Events-last exam Patient placed on Bipap ON. NPO. Denies any pain but states that when he is on vapotherm he does not feel like he can breath. Review of Systems General: Fatigue, Malaise Pulmonary: Dyspnea, Cough Cardiovascular: Edema; No: Chest Pain, Palpitations Gastrointestinal: No: Nausea, Vomiting, Abdominal Pain, Diarrhea, Constipation Neurological: Weakness, Incoordination Objective Exam Last Set of Vital Signs Vital Signs Date Time Temp Pulse Resp B/P (MAP) Pulse Ox O2 Delivery O2 Flow Rate FiO2 12/05/20 21:31 71 28 100 90.00 12/05/20 20:09 NIV Bilevel 90 12/05/20 19:54 103/76 (85) 12/05/20 19:32 36.4 Capillary Refill : Less Than 3 Seconds I&O Intake and Output 12/05/20 00:00 Intake Total 830 ml Output Total 2650 ml Balance -1820 ml Intake Oral 830 ml Output Urine Total 2650 ml # Voids 2 # Urine Diapers 2 General: Alert, Oriented X3, Moderate Distress Lungs: Other (diminished breath sounds, increased work of breathing) Heart: Regular Rate, No Murmurs Abdomen: Normal Bowel Sounds, Soft, No Tenderness, No Masses Extremities: No Tenderness/Swelling, Other (2+ pitting edema equal bilaterally) Skin: No Rashes, No Breakdown Neuro: Normal Speech Results/Procedures Lab Laboratory Tests 12/05/20 04:30: White Blood Count 11.0, Red Blood Count 5.50, Hemoglobin 15.3, Hematocrit 46, Mean Corpuscular Volume 83, Mean Corpuscular Hemoglobin 28, Mean Corpuscular Hemoglobin Concent 33, Red Cell Distribution Width 14.3, Platelet Count 271, Mean Platelet Volume 9.7, Immature Granulocyte % (Auto) 1, Neutrophils (%) (Auto) 91H, Lymphocytes (%) (Auto) 4L, Monocytes (%) (Auto) 2, Eosinophils (%) (Auto) 2, Basophils (%) (Auto) 0, Neutrophils # (Auto) 10.0H, Lymphocytes # (Auto) 0.5L, Monocytes # (Auto) 0.2, Eosinophils # (Auto) 0.3, Basophils # (Auto) 0.0, Immature Granulocyte # (Auto) 0.1, Sodium Level 131L, Potassium Level 4.5, Chloride Level 101, Carbon Dioxide Level 18L, Anion Gap 12, Blood Urea Nitrogen 20H, Creatinine 0.73, Estimat Glomerular Filtration Rate 109, BUN/Creatinine Ratio 27, Glucose Level 91, Calcium Level 8.7, Phosphorus Level 3.0, Magnesium Level 2.0 12/05/20 14:08: Blood Gas Puncture Site RRAD, Blood Gas Patient Temperature 35.2, Arterial Blood pH 7.47H, Arterial Blood Partial Pressure CO2 28L, Arterial Blood Partial Pressure O2 61L, Arterial Blood HCO3 20L, Arterial Blood Total CO2 21.2, Arterial Blood Oxygen Saturation 93L, Arterial Blood Base Excess -3.2L, Azeem Test POS, Blood Gas Ventilator Setting YES, Blood Gas Inspired Oxygen 100% Microbiology 12/03/20 Gram Stain - Final, Complete 12/03/20 Sputum Culture - Final, Complete Usual upper respiratory stephie Assessment/Plan Assessment/Plan (1) Acute respiratory failure due to COVID-19 Status: Acute Assessment & Plan: 12/03: Continues to need close to max support on vapotherm and after exercise takes >10 mins to recover, appreciate eICU recommendations, encouraged proning with patient 12/04: Patient is not tolerating titration, will likely need long titrate, spoke with [facility] to look at patient 12/05: Bipap dependent, will titrate as tolerated, high risk of intubation (2) Pneumonia due to COVID-19 virus Status: Acute Assessment & Plan: 12/03: Currently on Cefepime, completed azithromycin (3) Hypercoagulable state associated with COVID-19 Status: Acute Assessment & Plan: 12/03: CRP and d-dimer elevated, patient on treatment dosing of lovenox BHARAT ART MD Dec 05, 2020 21:54
[2020-12-06] MEDS: guaiFENesin/CODEINE (ROBITUSSIN AC) 10ML UDC PO PRN ×3 (00:01→10:50)
[2020-12-06] MEDS: MELATONIN 3 MG TABLET PO SCH ×2 (01:00→19:28)
[2020-12-06] MEDS: CEFEPIME INJECTION 1,000 MG in WATER (STERILE) FOR INJECTION 10 ML IV SCH ×4 (01:00→18:34)
[2020-12-06] MEDS: RT-ALBUTEROL HFA 8.5 GM INHALER IH SCH ×4 (01:13→19:03)
[2020-12-06] MEDS: DexMEDEtomidine 250 ML DRIP 250 ML IV SCH ×2 (02:47→22:31)
[2020-12-06 04:43] LABS: BASOPHILS % (AUTO) 0 % (0-10); EOSINOPHILS # (AUTO) 0.3 10^3/uL (0.0-0.3); EOSINOPHILS % (AUTO) 3 % (0-10); HEMATOCRIT 46 % (40-54); HEMOGLOBIN 15.6 g/dL (13.3-17.7); LYMPHOCYTES # (AUTO) 0.5 10^3/uL (1.0-4.0); LYMPHOCYTES % (AUTO) 4 % (12-44); MEAN CORPUSCULAR HEMOGLOBIN 28 pg (25-34); MEAN CORPUSCULAR HGB CONC 34 g/dL (32-36); MEAN CORPUSCULAR VOLUME 83 fL (80-99); MEAN PLATELET VOLUME 9.7 fL (9.0-12.2); MONOCYTES # (AUTO) 0.3 10^3/uL (0.0-1.0); MONOCYTES % (AUTO) 3 % (0-12); NEUTROPHILS % (AUTO) 90 % (42-75); PLATELET COUNT 226 10^3/uL (130-400); WHITE BLOOD COUNT 12.3 10^3/uL (4.3-11.0)
[2020-12-06 04:54] LABS: POTASSIUM 4.6 MMOL/L (3.6-5.0)
[2020-12-06 04:55] LABS: CALCIUM 8.4 MG/DL (8.5-10.1)
[2020-12-06 04:59] LABS: CREATININE SERUM 0.75 MG/DL (0.60-1.30); PHOSPHORUS 2.7 MG/DL (2.3-4.7)
[2020-12-06] MEDS: POTASSIUM CL 10MEQ/50ML IVPB 50 ML IV SCH (05:03)
[2020-12-06] MEDS: KCL 20 MEQ TAB (K-DUR) PO SCH (05:03)
[2020-12-06] MEDS: MAGNESIUM 1 GM/100 ML IVPB 100 ML IV SCH (05:03)
[2020-12-06 05:41] LABS: ABG OXYGEN SATURATION 92 % (94-100); ABG PCO2 31 MMHG (35-45); ABG PH 7.41 (7.37-7.43); ABG PO2 64 MMHG (79-93); ALLENS TEST POSITIVE; INSPIRED O2 90
[2020-12-06 05:42] LABS: PATIENT TEMP 36; VENTILATOR NO
--- NOTE | 2020-12-06 08:46 | Tele-ICU Progress Note ---
Subjective Date Seen by a Provider: Dec 06, 2020 Time Seen by a Provider: 11:28 Subjective/Events-last exam Severe COVID PNA, on BiPAP 16/8 FiO2 now up to 100%, SpO2 in mid 90's, drops is mask taken off and takes 10-15 min to recover, not showing increased WOB if on BiPAP On full anti coagulation Lovenox x100 bid, Now off IV decadron on IV cefepime last day tomorrow I reviewed CXR today, shows extensive bilateral infiltrates ABG today 7.41/pCO2 31/pO2 62. moderate resp distress, There is componet of anxiety, will get 1 mg IV ativan q 4h Sepsis Event Evaluation Height, Weight, BMI Height: '" Weight: lbs. oz. kg; 34.90 BMI Method: Exam Exam Patient acknowledged, consented, and participated in this virtual visit which was conducted using real time audio/video Vital Signs Date Time Temp Pulse Resp B/P (MAP) Pulse Ox O2 Delivery O2 Flow Rate FiO2 12/06/20 08:00 36.5 12/06/20 06:00 65 20 85/58 (67) 98 NIV Bilevel 90.00 12/06/20 05:00 59 18 84/60 (68) 96 NIV Bilevel 90.00 12/06/20 04:00 65 25 95/54 (68) 96 NIV Bilevel 90.00 12/06/20 04:00 36.0 12/06/20 03:51 NIV Bilevel 90 12/06/20 03:00 76 25 84/52 (63) 96 NIV Bilevel 90.00 12/06/20 02:47 67 12/06/20 02:00 67 20 94/63 (73) 96 NIV Bilevel 90.00 12/06/20 02:00 NIV Bilevel 90.00 12/06/20 01:13 72 21 94 80.00 12/06/20 01:00 69 19 96/65 (75) 97 NIV Bilevel 80.00 12/06/20 01:00 70 12/06/20 00:00 NIV Bilevel 80.00 12/06/20 00:00 NIV Bilevel 90 12/06/20 00:00 69 19 99/55 (70) 92 NIV Bilevel 80.00 12/05/20 23:30 36.6 12/05/20 23:00 64 19 91/59 (70) 95 NIV Bilevel 75.00 12/05/20 22:00 59 22 102/64 (77) 96 NIV Bilevel 75.00 12/05/20 21:31 71 28 100 90.00 12/05/20 21:00 70 29 104/96 (99) 98 NIV Bilevel 90.00 12/05/20 20:09 NIV Bilevel 90 12/05/20 20:00 71 23 109/71 (84) 97 NIV Bilevel 90.00 12/05/20 19:54 75 37 103/76 (85) 97 NIV Bilevel 90.00 12/05/20 19:32 36.4 12/05/20 19:00 66 12/05/20 19:00 66 31 103/76 (85) 93 NIV Bilevel 90.00 12/05/20 18:42 72 35 100 100.00 12/05/20 18:00 76 33 95/73 (80) 97 NIV Bilevel 70.00 12/05/20 17:00 70 39 103/67 (79) 96 NIV Bilevel 70.00 12/05/20 16:00 81 31 100/65 (77) 94 NIV Bilevel 70.00 12/05/20 16:00 NIV Bilevel 100 12/05/20 16:00 36.8 12/05/20 15:00 74 34 102/70 (81) 96 NIV Bilevel 70.00 12/05/20 13:44 71 23 100 100.00 12/05/20 13:00 69 20 112/71 (85) 99 NIV Bilevel 70.00 12/05/20 12:35 81 12/05/20 12:00 76 36 117/65 (82) 99 NIV Bilevel 70.00 12/05/20 12:00 36.8 12/05/20 12:00 NIV Bilevel 100 12/05/20 11:00 65 22 103/70 (81) 99 NIV Bilevel 70.00 12/05/20 10:00 81 38 102/83 (89) 94 NIV Bilevel 70.00 12/05/20 09:00 77 27 120/70 (87) 98 NIV Bilevel 70.00 I & O 12/06/20 07:00 Intake Total 250 ml Output Total 1900 ml Balance -1650 ml Height & Weight Height: '" Weight: lbs. oz. kg; 34.90 BMI Method: General Appearance: No Apparent Distress, Mild Distress, Obese HEENT: PERRL/EOMI, Normal ENT Inspection, Pharynx Normal, Moist Mucous Membranes Neck: Full Range of Motion, Normal Inspection, Non Tender Respiratory: No Respiratory Distress, Decreased Breath Sounds, Rhonci, Other (Wearing BiPAP) Cardiovascular: Regular Rate, Rhythm, No Edema, No Murmur Capillary Refill: Less Than 3 Seconds Gastrointestinal: normal bowel sounds, non tender, soft (has midlinte) Extremity: Normal Inspection, Non Tender, No Pedal Edema, Other (has left midline, site ok) Neurologic/Psychiatric: Alert, Oriented x3 Skin: Normal Color, Warm/Dry Lymphatic: No Adenopathy Results Lab Laboratory Tests 12/05/20 04:30 12/06/20 04:20 Assessment/Plan Assessment/Plan As before extensive COVID PNA for now does not need to be intubated but needs to be watched closely for drop in SpO2 Continue on Lovenox for high d dimer glucose is well controlled, continue PPI IV Critical Care: Critically Ill Patient Time spent with patient (mins): 40 VENKATESH LOPEZ MD Dec 06, 2020 08:46
[2020-12-06] MEDS: PANTOPRAZOLE 40 MG (PROTONIX) TAB PO SCH (09:09)
[2020-12-06] MEDS: polyethylene glycoL POWDER 17 GM (MIRALAX) PACK PO SCH ×2 (09:10→20:47)
[2020-12-06] MEDS: ENOXAPARIN 100 MG/1 ML (LOVENOX) SYR SC SCH ×2 (09:10→20:07)
[2020-12-06] MEDS: SENNA W/DOCUSATE (SENOKOT S) TABLET PO SCH ×2 (09:10→20:52)
[2020-12-06] MEDS: ALPRAZolam 0.25 MG (XANAX) TAB PO PRN (09:20)
[2020-12-06] MEDS ORDERED: LORazepam INJ 2 MG/ML (ATIVAN) VIAL ONE (11:04)
[2020-12-06] MEDS: UMECLIDINIUM BROMIDE (INCRUSE ELLIPTA) 7'S IH SCH (11:10)
[2020-12-06 11:11] VITALS: BP 111/75
[2020-12-06] MEDS ORDERED: LORazepam INJ 2 MG/ML (ATIVAN) VIAL IVP PRN (12:00)
[2020-12-06] MEDS: PROPOFOL DRIP (ICU) 100 ML IV SCH ×6 (12:19→23:41)
[2020-12-06] MEDS ORDERED: PROPOFOL DRIP (ICU) 100 ML IV ONE ×3 (12:19→16:38)
[2020-12-06] MEDS ORDERED: proPOfol 200 MG/20 ML (DIPRIVAN) VIAL IV ONE (12:20)
--- NOTE | 2020-12-06 13:00 | Anesthesia-Procedure Note ---
Procedures/Interventions Procedure Start/Stop/Diagnosis Date of Procedure: Dec 06, 2020 Start Time: 12:25 Preprocedural Diagnosis: covid positive/resp failure Brief History Called to stat intubate patient. Pt currently on bipap, tachypneic, appearance ashen, with an SPO2 mid 80's. Explained procedure to patient. Proceeded with intubation. [place] placed afterward x 1 attempt. Stop Time: 12:45 Intubation RSI: Yes 100% pre-Ox, [id number]: Yes Intubation Method: orotracheal (8.0) Roy (size used 0-4): 2 Videoscope used: No Medications: Propofol (80mg), Rocuronium (after intubation to facilitate gloria placement, propofol gtt for sedation infusing. ), Succinylcholine (100) Mask Ventilation: positive Positive End Tide CO2: Yes Breath Sounds after Intubation: bilateral-equal ETT Securred @ (cm): 21 Intubated with ease: Yes Intubation Complications: no complications Post Intubation Xray-done: Yes (ordered) Care turned over to: RN/RT Arterial Line Arterial Line Catheter: 20G Type: Radial Location: Right Procedure: prepped, draped in sterile fashion, good wave-form was obtained, patient tolerated procedure well, no immediate complications, post procedure area cleaned, post procedure dressing applied JEMIMA WHITEHEAD CRNA Dec 06, 2020 13:00
[2020-12-06] MEDS ORDERED: NOREPINEPHRINE 8 MG/250 ML 250 ML IV ONE (13:20)
[2020-12-06] MEDS ORDERED: fentaNYL DRIP PRE-MIX 250 ML IV ONE (13:26)
[2020-12-06] MEDS: fentaNYL DRIP PRE-MIX 250 ML IV SCH ×3 (13:26→22:30)
--- NOTE | 2020-12-06 13:27 | Tele-ICU Progress Note ---
Subjective Date Seen by a Provider: Dec 06, 2020 Time Seen by a Provider: 13:24 Subjective/Events-last exam SpoO2 dropped into low 80's, BP also dropped and was electively intubated, now on AC 18, Vt 500 FiO2 100%, PEEP 12, SpO2 low 90's, On IV Propofol and Precedex, will agitated will add IV Fentanyl CXR pending post extubation Sepsis Event Evaluation Height, Weight, BMI Height: '" Weight: lbs. oz. kg; 34.90 BMI Method: Exam Exam Patient acknowledged, consented, and participated in this virtual visit which was conducted using real time audio/video Vital Signs Date Time Temp Pulse Resp B/P (MAP) Pulse Ox O2 Delivery O2 Flow Rate FiO2 12/06/20 13:19 Automatic Cuff 12/06/20 13:00 109 15 93 Mechanical Ventilator 100.00 12/06/20 12:00 75 39 100/75 (83) 89 NIV Bilevel 90.00 12/06/20 11:11 71 40 90 100.00 12/06/20 11:00 67 31 111/75 (87) 88 NIV Bilevel 90.00 12/06/20 10:00 67 29 93/71 (78) 92 NIV Bilevel 90.00 12/06/20 09:00 61 39 105/54 (71) 95 NIV Bilevel 90.00 12/06/20 08:00 36.5 12/06/20 08:00 61 23 85/63 (70) 97 NIV Bilevel 90.00 12/06/20 07:00 55 18 89/58 (68) 96 NIV Bilevel 90.00 12/06/20 06:45 59 12/06/20 06:00 65 20 85/58 (67) 98 NIV Bilevel 90.00 12/06/20 05:00 59 18 84/60 (68) 96 NIV Bilevel 90.00 12/06/20 04:00 65 25 95/54 (68) 96 NIV Bilevel 90.00 12/06/20 04:00 36.0 12/06/20 03:51 NIV Bilevel 90 12/06/20 03:00 76 25 84/52 (63) 96 NIV Bilevel 90.00 12/06/20 02:47 67 12/06/20 02:00 67 20 94/63 (73) 96 NIV Bilevel 90.00 12/06/20 02:00 NIV Bilevel 90.00 12/06/20 01:13 72 21 94 80.00 12/06/20 01:00 69 19 96/65 (75) 97 NIV Bilevel 80.00 12/06/20 01:00 70 12/06/20 00:00 NIV Bilevel 80.00 12/06/20 00:00 NIV Bilevel 90 12/06/20 00:00 69 19 99/55 (70) 92 NIV Bilevel 80.00 12/05/20 23:30 36.6 12/05/20 23:00 64 19 91/59 (70) 95 NIV Bilevel 75.00 12/05/20 22:00 59 22 102/64 (77) 96 NIV Bilevel 75.00 12/05/20 21:31 71 28 100 90.00 12/05/20 21:00 70 29 104/96 (99) 98 NIV Bilevel 90.00 12/05/20 20:09 NIV Bilevel 90 12/05/20 20:00 71 23 109/71 (84) 97 NIV Bilevel 90.00 12/05/20 19:54 75 37 103/76 (85) 97 NIV Bilevel 90.00 12/05/20 19:32 36.4 12/05/20 19:00 66 12/05/20 19:00 66 31 103/76 (85) 93 NIV Bilevel 90.00 12/05/20 18:42 72 35 100 100.00 12/05/20 18:00 76 33 95/73 (80) 97 NIV Bilevel 70.00 12/05/20 17:00 70 39 103/67 (79) 96 NIV Bilevel 70.00 12/05/20 16:00 81 31 100/65 (77) 94 NIV Bilevel 70.00 12/05/20 16:00 NIV Bilevel 100 12/05/20 16:00 36.8 12/05/20 15:00 74 34 102/70 (81) 96 NIV Bilevel 70.00 12/05/20 13:44 71 23 100 100.00 I & O 12/06/20 07:00 Intake Total 250 ml Output Total 1900 ml Balance -1650 ml Height & Weight Height: '" Weight: lbs. oz. kg; 34.90 BMI Method: General Appearance: No Apparent Distress, Mild Distress, Obese HEENT: PERRL/EOMI, Normal ENT Inspection, Pharynx Normal, Moist Mucous Membranes Neck: Full Range of Motion, Normal Inspection, Non Tender Respiratory: No Respiratory Distress, Decreased Breath Sounds, Rhonci, Other (Wearing BiPAP) Cardiovascular: Regular Rate, Rhythm, No Edema, No Murmur Capillary Refill: Less Than 3 Seconds Gastrointestinal: normal bowel sounds, non tender, soft (has midlinte) Extremity: Normal Inspection, Non Tender, No Pedal Edema, Other (has left midline, site ok) Neurologic/Psychiatric: Alert, Oriented x3 Skin: Normal Color, Warm/Dry Lymphatic: No Adenopathy Results Lab Laboratory Tests 12/05/20 04:30 12/06/20 04:20 Assessment/Plan Assessment/Plan SpoO2 dropped into low 80's, BP also dropped and was electively intubated, now on AC 18, Vt 500 FiO2 100%, PEEP 12, SpO2 low 90's, On IV Propofol and Precedex, will agitated will add IV Fentanyl CXR pending post extubation Critical Care: Critically Ill Patient Time spent with patient (mins): 10 VENKATESH LOPEZ MD Dec 06, 2020 13:27
--- NOTE | 2020-12-06 13:49 | Progress Note ---
Standard Progress Note Progress Notes/Assess & Plan Date Seen by a Provider: Dec 06, 2020 Time Seen by a Provider: 13:48 Progress/Assessment & Plan SBP dropped into 50's, levophed started thru midline, will order central line MD JESSICA Padgett JOSEPH K MD Dec 06, 2020 13:49
--- NOTE | 2020-12-06 13:51 | Diagnostic Imaging Report ---
INDICATION: Endotracheal tube placement. TIME OF EXAM: 1:33 p.m. COMPARISON: Correlation is made with prior chest from 12/05/2020. FINDINGS: ET tube has been placed and has the tip in good position above the elsy. NG tube passes below the diaphragm. Airspace infiltrates are identified in bilateral mid and lower lung reaves. There is no effusion or pneumothorax. IMPRESSION: Satisfactory endotracheal tube and nasogastric tube placement. Dictated by: Dictated on workstation # [id number]
[2020-12-06] MEDS: NOREPINEPHRINE 8 MG/250 ML 250 ML IV SCH ×2 (14:00→22:32)
--- NOTE | 2020-12-06 14:19 | Occ Therapy Progress Note ---
Therapy Progress Note OT orders received. Pt is currently intubated/sedated. OT will continue to monitor pt and initiate tx when pt is more medically stable and able to actively participate in skilled therapy JEREL RAHMAN OT Dec 06, 2020 14:19
--- NOTE | 2020-12-06 14:26 | Physical Therapy Progress Note ---
Therapy Progress Note Patient intubated on this date. PT will continue to monitor patient status and initiate therapy when patient is able to actively participate with skilled therapy. ANU RAMOS PT Dec 06, 2020 14:26
[2020-12-06 14:38] VITALS: BP 65/42
[2020-12-06 16:49] LABS: ABG BASE EXCESS -7.2 MMOL/L (-2.5-2.5); ABG OXYGEN SATURATION 96 % (94-100); ABG PCO2 48 MMHG (35-45); ABG PO2 103 MMHG (79-93); ABG TCO2 20.8 MMOL/L (21.0-31.0)
[2020-12-06 16:51] LABS: ABG PH 7.22 (7.37-7.43); ALLENS TEST POSITIVE; INSPIRED O2 100%; PATIENT TEMP 36.5; VENTILATOR YES
--- NOTE | 2020-12-06 17:08 | Progress Note ---
Standard Progress Note Progress Notes/Assess & Plan Date Seen by a Provider: Dec 06, 2020 Time Seen by a Provider: 16:53 Progress/Assessment & Plan BP now more stable, I talked at length with niece who is physician about condition. Sedation is better on IV Propofol 60 and Fentanyl 300, IV Precedex now off, no further bradycardia, on 0.15 levo with SBP 140 Is double triggering on vent, if continues will order Nimbex Does appear adequately sedated for N-M blockade MD JESSICA Padgett JOSEPH K MD Dec 06, 2020 17:08
[2020-12-06] MEDS ORDERED: CISATRACURIUM 2MG/ML (NIMBEX) 10ML VIAL IV ONE (17:15)
--- NOTE | 2020-12-06 17:28 | Progress Note ---
Standard Progress Note Progress Notes/Assess & Plan Date Seen by a Provider: Dec 06, 2020 Time Seen by a Provider: 17:26 Progress/Assessment & Plan ABG 7.22/48/103 will increase rate to 24 get ABG in one hour VENKATESH LOPEZ MD Dec 06, 2020 17:28
[2020-12-06] MEDS: CISATRACURIUM INJECTION 100 MG in NS (IVPB) 200 ML IV SCH ×2 (18:19→23:40)
[2020-12-06] MEDS: LACTATED RINGERS 1,000 ML IV SCH (18:23)
[2020-12-06 19:03] VITALS: BP 87/56
[2020-12-06] MEDS ORDERED: ROCURONIUM 10 MG/ML 5 ML SYRINGE IV ONE (19:46)
[2020-12-06] MEDS ORDERED: SUCCINYLCHOLINE INJ 100 MG/5 ML SYR/VIAL INJ ONE (19:46)
--- NOTE | 2020-12-06 20:22 | Diagnostic Imaging Report ---
INDICATION: Abdominal pain. TECHNIQUE: 2 supine view of the abdomen 7:56 PM CORRELATION STUDY: None. FINDINGS: Gastric tube noted with the tip just to midline right upper quadrant likely in distal body of the stomach. There is some gas within the colon as well as a few gas-filled loops of small bowel. However, no finding to suggest high degree bowel obstruction. No definitive pathologic intra-abdominal calcification. IMPRESSION: Gastric tube tip likely in the region of the body of the stomach. Nonobstructive appearing bowel gas pattern. Dictated by: Dictated on workstation # [id number]
--- NOTE | 2020-12-06 20:23 | Diagnostic Imaging Report ---
INDICATION: Covid pneumonia positive. TECHNIQUE: Single view chest 7:55 PM. CORRELATION STUDY: 12/06/2020. FINDINGS: Endotracheal tube tip over the trachea, tip is below the level of the clavicles. Gastric tube is within the left hemidiaphragm. Right-sided central line tip over the SVC. Heart size and mediastinum are generally stable. Scattered bilateral five lobe pulmonary opacities are again demonstrated compatible with a multilobe pneumonia. Overall severity consolidation likely relatively stable to perhaps minimally improved. IMPRESSION: 1. Stable support lines and tubes. 2. Bilateral pneumonia again demonstrated, overall stable to perhaps minimally improved. Dictated by: Dictated on workstation # [id number]
[2020-12-06 20:46] LABS: ABG BASE EXCESS -7.6 MMOL/L (-2.5-2.5); ABG OXYGEN SATURATION 98 % (94-100); ABG PCO2 60 MMHG (35-45); ABG PO2 143 MMHG (79-93); ABG TCO2 21.8 MMOL/L (21.0-31.0)
[2020-12-06 20:49] LABS: ABG PH 7.15 (7.37-7.43)
[2020-12-06 20:50] LABS: ALLENS TEST ART LINE; PATIENT TEMP 36.6; VENTILATOR YES
--- NOTE | 2020-12-06 22:15 | Progress Note ---
Subjective Subjective/Events-last exam Patient not doing well on bipap. Spoke with eICU and decision to intubate was made. Review of Systems Intubated and sedated Objective Exam Last Set of Vital Signs Vital Signs Date Time Temp Pulse Resp B/P (MAP) Pulse Ox O2 Delivery O2 Flow Rate FiO2 12/06/20 20:06 82 30 95 Mechanical Ventilator 100.00 12/06/20 20:00 100 12/06/20 15:23 36.6 Capillary Refill : Less Than 3 Seconds I&O Intake and Output 12/06/20 00:00 Intake Total 300 ml Output Total 2125 ml Balance -1825 ml Intake Oral 300 ml Output Urine Total 2125 ml General: Other (Intubated and sedated) Lungs: Other (diminished breath sounds, increased work of breathing, diffuse crackles and wheezing) Heart: Regular Rate, No Murmurs Abdomen: Normal Bowel Sounds, Soft, No Tenderness, No Masses Extremities: No Edema, No Tenderness/Swelling Skin: No Rashes, No Breakdown Results/Procedures Lab Laboratory Tests 12/06/20 04:20: White Blood Count 12.3H, Red Blood Count 5.57H, Hemoglobin 15.6, Hematocrit 46, Mean Corpuscular Volume 83, Mean Corpuscular Hemoglobin 28, Mean Corpuscular Hemoglobin Concent 34, Red Cell Distribution Width 14.3, Platelet Count 226, Mean Platelet Volume 9.7, Immature Granulocyte % (Auto) 1, Neutrophils (%) (Auto) 90H, Lymphocytes (%) (Auto) 4L, Monocytes (%) (Auto) 3, Eosinophils (%) (Auto) 3, Basophils (%) (Auto) 0, Neutrophils # (Auto) 11.0H, Lymphocytes # (Auto) 0.5L, Monocytes # (Auto) 0.3, Eosinophils # (Auto) 0.3, Basophils # (Auto) 0.0, Immature Granulocyte # (Auto) 0.1, Sodium Level 132L, Potassium Level 4.6, Chloride Level 103, Carbon Dioxide Level 18L, Anion Gap 11, Blood Urea Nitrogen 22H, Creatinine 0.75, Estimat Glomerular Filtration Rate 106, BUN/Creatinine Ratio 29, Glucose Level 99, Calcium Level 8.4L, Phosphorus Level 2.7, Magnesium Level 2.0 12/06/20 05:30: Blood Gas Puncture Site RIGHT RADIAL, Blood Gas Patient Temperature 36, Arterial Blood pH 7.41, Arterial Blood Partial Pressure CO2 31L, Arterial Blood Partial Pressure O2 64L, Arterial Blood HCO3 20L, Arterial Blood Total CO2 21.0, Arterial Blood Oxygen Saturation 92L, Arterial Blood Base Excess -4.0L, Azeem Test POSITIVE, Blood Gas Ventilator Setting NO, Blood Gas Inspired Oxygen 90 12/06/20 16:40: Blood Gas Puncture Site RIGHT RADIAL, Blood Gas Patient Temperature 36.5, Arterial Blood pH 7.22*L, Arterial Blood Partial Pressure CO2 48H, Arterial Blood Partial Pressure O2 103H, Arterial Blood HCO3 19L, Arterial Blood Total CO2 20.8L, Arterial Blood Oxygen Saturation 96, Arterial Blood Base Excess -7.2L , Azeem Test POSITIVE, Blood Gas Ventilator Setting YES, Blood Gas Inspired Oxygen 100% 12/06/20 17:16: Glucometer 122H 12/06/20 18:00: Triglycerides Level 155H 12/06/20 20:34: Blood Gas Puncture Site NA, Blood Gas Patient Temperature 36.6, Arterial Blood pH 7.15*L, Arterial Blood Partial Pressure CO2 60H, Arterial Blood Partial Pressure O2 143H, Arterial Blood HCO3 20L, Arterial Blood Total CO2 21.8, Arterial Blood Oxygen Saturation 98, Arterial Blood Base Excess -7.6L, Azeem Test ART LINE, Blood Gas Ventilator Setting YES, Blood Gas Inspired Oxygen NA Microbiology 12/03/20 Gram Stain - Final, Complete 12/03/20 Sputum Culture - Final, Complete Usual upper respiratory stephie Assessment/Plan Assessment/Plan (1) Acute respiratory failure due to COVID-19 Status: Acute Assessment & Plan: 12/03: Continues to need close to max support on vapotherm and after exercise takes >10 mins to recover, appreciate eICU recommendations, encouraged proning with patient 12/04: Patient is not tolerating titration, will likely need long titrate, spoke with [facility] to look at patient 12/05: Bipap dependent, will titrate as tolerated, high risk of intubation 12/06: Intubated this AM, eICU managing (2) Pneumonia due to COVID-19 virus Status: Acute Assessment & Plan: 12/03: Currently on Cefepime, completed azithromycin (3) Hypercoagulable state associated with COVID-19 Status: Acute Assessment & Plan: 12/03: CRP and d-dimer elevated, patient on treatment dosing of BHARAT Flores MD Dec 06, 2020 22:15
[2020-12-06 22:20] VITALS: BP 79/56
[2020-12-06] MEDS: ZINC OXIDE 16% OINT (BUTT PASTE) 57 GM TUBE TOP PRN (23:48)
[2020-12-07] MEDS: CEFEPIME INJECTION 1,000 MG in WATER (STERILE) FOR INJECTION 10 ML IV SCH ×2 (00:40→06:01)
[2020-12-07] MEDS: fentaNYL DRIP PRE-MIX 250 ML IV SCH ×4 (02:32→19:01)
[2020-12-07 04:24] LABS: ABG BASE EXCESS -5.3 MMOL/L (-2.5-2.5); ABG OXYGEN SATURATION 96 % (94-100); ABG PCO2 47 MMHG (35-45); ABG PO2 81 MMHG (79-93); ABG TCO2 22.4 MMOL/L (21.0-31.0); BASOPHILS % (AUTO) 0 % (0-10); EOSINOPHILS # (AUTO) 0.4 10^3/uL (0.0-0.3); EOSINOPHILS % (AUTO) 2 % (0-10); HEMATOCRIT 49 % (40-54); HEMOGLOBIN 15.8 g/dL (13.3-17.7); LYMPHOCYTES % (AUTO) 5 % (12-44); MEAN CORPUSCULAR HEMOGLOBIN 28 pg (25-34); MEAN CORPUSCULAR HGB CONC 32 g/dL (32-36); MEAN CORPUSCULAR VOLUME 85 fL (80-99); MEAN PLATELET VOLUME 9.4 fL (9.0-12.2); MONOCYTES # (AUTO) 0.3 10^3/uL (0.0-1.0); MONOCYTES % (AUTO) 2 % (0-12); NEUTROPHILS # (AUTO) 16.7 10^3/uL (1.8-7.8); NEUTROPHILS % (AUTO) 90 % (42-75); PLATELET COUNT 243 10^3/uL (130-400); WHITE BLOOD COUNT 18.5 10^3/uL (4.3-11.0)
[2020-12-07 04:25] LABS: ABG PH 7.26 (7.37-7.43); ALLENS TEST ART LINE; PATIENT TEMP 35.8; VENTILATOR YES
[2020-12-07 04:34] LABS: POTASSIUM 4.4 MMOL/L (3.6-5.0)
[2020-12-07 04:40] LABS: CREATININE SERUM 0.87 MG/DL (0.60-1.30); PHOSPHORUS 3.3 MG/DL (2.3-4.7)
[2020-12-07 04:42] LABS: MAGNESIUM 2.3 MG/DL (1.6-2.4)
[2020-12-07] MEDS: CISATRACURIUM INJECTION 100 MG in NS (IVPB) 200 ML IV SCH ×3 (04:53→16:00)
[2020-12-07] MEDS: POTASSIUM CL 10MEQ/50ML IVPB 50 ML IV SCH (04:53)
[2020-12-07] MEDS: MAGNESIUM 1 GM/100 ML IVPB 100 ML IV SCH (04:54)
[2020-12-07] MEDS: KCL 20 MEQ TAB (K-DUR) PO SCH (04:54)
[2020-12-07] MEDS: PROPOFOL DRIP (ICU) 100 ML IV SCH ×6 (05:19→19:44)
[2020-12-07] MEDS ORDERED: CEFEPIME 1 GM/10 ML (MAXIPIME) VIAL ONE (05:43)
[2020-12-07 06:50] VITALS: BP 99/51
[2020-12-07] MEDS: RT-ALBUTEROL HFA 8.5 GM INHALER IH SCH ×5 (06:50→21:58)
--- NOTE | 2020-12-07 07:04 | Occ Therapy Progress Note ---
Therapy Progress Note Pt is currently intubated. OT will continue to monitor pt and initiate therapy when pt is more medically stable and able to actively participate in skilled therapy. DEXTER HAWK Dec 07, 2020 07:04
--- NOTE | 2020-12-07 07:23 | Progress Note - Hospitalist ---
Subjective HPI/CC On Admission Date Seen by Provider: Dec 07, 2020 Time Seen by Provider: 11:00 Chief complaint: COVID-19 pneumonia with sepsis History present illness: This is a 60-year-old white male who was diagnosed with Covid 9 days ago who presented to the ER with shortness of breath fever and lethargy. Patient was found to have hypotension responded to aggressive IV fluids and placed on BiPAP for hypoxia. Currently it is difficult to communicate due to BiPAP. We will initiate IV antibiotics and closely monitor since he is high risk for decompensation. Subjective/Events-last exam Patient remains intubated No significant changes Still on pressor therapy Not stable to go to [facility] We will monitor closely Review of Systems General: Fatigue Objective Exam Vital Signs Vital Signs Date Time Temp Pulse Resp B/P (MAP) Pulse Ox O2 Delivery O2 Flow Rate FiO2 12/08/20 04:05 Mechanical Ventilator 50 12/08/20 04:00 106 34 94 50.00 12/07/20 23:37 37.0 Capillary Refill : Less Than 3 Seconds General Appearance: No Apparent Distress, Other (Sedated and intubated) Respiratory: Decreased Breath Sounds Cardiovascular: Regular Rate, Rhythm Results/Procedures Lab Laboratory Tests 12/08/20 03:50 Patient resulted labs reviewed. Imaging: Reviewed Imaging Report Assessment/Plan Assessment and Plan Assess & Plan/Chief Complaint Assessment: Acute hypoxic respiratory failure COVID-19 pneumonia Hypotension requiring pressor therapy Sepsis Bacterial pneumonia Hypothyroidism DJD Plan: BiPAP Supportive care Monitor closely 12/07/2020: Maintain intubation [place] has a bed bit not stable yet 11/27/20: Monitor ABG Monitor closely 11/28/2020: Vapotherm and BiPAP Monitor closely 11/29/2020: Slow recovery Guarded prognosis Still at risk for intubation Critical Care Critically Ill Patient CARISSA MARITNS DO Dec 07, 2020 07:23
--- NOTE | 2020-12-07 07:49 | Physical Therapy Progress Note ---
Therapy Progress Note Pt is currently intubated. PT will continue to monitor pt and initiate therapy when pt is more medically stable and able to actively participate in skilled therapy. ANU RAMOS PT Dec 07, 2020 07:49
[2020-12-07] MEDS: PANTOPRAZOLE 40 MG (PROTONIX) VIAL IV SCH (08:39)
[2020-12-07] MEDS: ENOXAPARIN 100 MG/1 ML (LOVENOX) SYR SC SCH ×2 (08:39→20:35)
[2020-12-07] MEDS: polyethylene glycoL POWDER 17 GM (MIRALAX) PACK PO SCH ×2 (08:39→20:34)
[2020-12-07] MEDS: SENNA W/DOCUSATE (SENOKOT S) TABLET PO SCH ×2 (08:40→20:42)
--- NOTE | 2020-12-07 10:11 | Tele-ICU Progress Note ---
Subjective Date Seen by a Provider: Dec 07, 2020 Time Seen by a Provider: 07:45 Subjective/Events-last exam Patient seen for virtual visit which was conducted using real time audio/video. Thank you for asking us to see this patient for respiratory insufficiency and distress due to Covid pna. HPC: Recent events: Off Precedex, on Levophed. ROS: limited by patient's clinical condition. PE: Appears comfortable on camera. VSS BP 110/60 O2 sat 93% on 100%/+10. HEENT: No obvious masses, adenopathy or JVD. Chest: clear to auscultation. CV: RRR S1 S2 No murmur or added sounds. Abd: Non-tender. Bowel sounds Y. : Unremarkable. Gaston Y . ETL APPLICATION DEVELOPER/psychiatric: No obvious focal findings. Extremities: No edema. Capillary refill < 3 seconds. Skin: unremarkable. Results: 7.//81. WCC 18.5 A/P: Resp fail: increase PEEP to 16 and attempt to wean FiO2. Cont Lovenox, PPI and Cefipime. Available chart/ vitals / labs / Images reviewed Video assessment done using teleICU camera, rest of exam as per RN. Critical Care: critically ill patient. Discussed with JESUS Ferrara. Asked RN to reach out to eICU if any questions or concerns later. Time spent with patient/family/coordination of care with other health professio nals (mins):15 Sepsis Event Evaluation Height, Weight, BMI Height: '" Weight: lbs. oz. kg; 34.90 BMI Method: Exam Exam Patient acknowledged, consented, and participated in this virtual visit which was conducted using real time audio/video Vital Signs Date Time Temp Pulse Resp B/P (MAP) Pulse Ox O2 Delivery O2 Flow Rate FiO2 12/07/20 09:00 78 34 95 Mechanical Ventilator 85.00 12/07/20 08:00 70 33 93 Mechanical Ventilator 85.00 12/07/20 07:45 35.9 12/07/20 07:00 76 34 88 Mechanical Ventilator 85.00 12/07/20 07:00 66 12/07/20 06:50 71 34 92 85 12/07/20 06:00 67 33 91 Mechanical Ventilator 85.00 12/07/20 05:20 98/56 12/07/20 05:19 73 12/07/20 05:00 71 33 94 Mechanical Ventilator 85.00 12/07/20 04:25 35.8 12/07/20 04:22 88 36 96 85 12/07/20 04:00 68 33 93 Mechanical Ventilator 85.00 12/07/20 03:42 Mechanical Ventilator 90 12/07/20 03:00 67 34 94 Mechanical Ventilator 85.00 12/07/20 03:00 Mechanical Ventilator 85.00 12/07/20 02:00 69 33 94 Mechanical Ventilator 90.00 12/07/20 01:00 74 12/07/20 01:00 74 33 93 Mechanical Ventilator 90.00 12/07/20 00:40 Mechanical Ventilator 90.00 12/07/20 00:04 Mechanical Ventilator 100 12/07/20 00:00 80 33 95 Mechanical Ventilator 100.00 12/06/20 23:41 71 12/06/20 23:40 142/74 12/06/20 23:00 69 34 95 Mechanical Ventilator 100.00 12/06/20 22:32 131/75 12/06/20 22:31 71 12/06/20 22:20 84 34 95 100 12/06/20 22:00 76 33 94 Mechanical Ventilator 100.00 12/06/20 21:00 79 29 94 Mechanical Ventilator 100.00 12/06/20 20:06 82 30 95 Mechanical Ventilator 100.00 12/06/20 20:00 84 30 96 Mechanical Ventilator 100.00 12/06/20 20:00 Mechanical Ventilator 100 12/06/20 19:03 85 27 95 100 12/06/20 19:00 80 29 96 Mechanical Ventilator 100.00 12/06/20 19:00 80 12/06/20 18:22 86 70/46 12/06/20 18:21 86 70/46 12/06/20 18:00 73 95 Mechanical Ventilator 100.00 12/06/20 17:00 74 94 Mechanical Ventilator 100.00 12/06/20 16:00 71 94 Mechanical Ventilator 100.00 12/06/20 16:00 Mechanical Ventilator 100 12/06/20 16:00 74 12/06/20 16:00 74 12/06/20 15:23 36.6 12/06/20 15:00 59 92 Mechanical Ventilator 100.00 12/06/20 14:38 78 30 88 100 12/06/20 14:00 44 91 Mechanical Ventilator 100.00 12/06/20 14:00 86 70/46 12/06/20 13:30 36.1 12/06/20 13:19 Automatic Cuff 12/06/20 13:00 109 15 93 Mechanical Ventilator 100.00 12/06/20 12:41 134 12/06/20 12:19 74 12/06/20 12:00 Mechanical Ventilator 100 12/06/20 12:00 75 39 100/75 (83) 89 NIV Bilevel 90.00 12/06/20 11:11 71 40 90 100.00 12/06/20 11:00 67 31 111/75 (87) 88 NIV Bilevel 90.00 I & O 12/07/20 07:00 Intake Total 60 ml Output Total 3595 ml Balance -3535 ml Height & Weight Height: '" Weight: lbs. oz. kg; 34.90 BMI Method: General Appearance: No Apparent Distress, Mild Distress, Obese HEENT: PERRL/EOMI, Normal ENT Inspection, Pharynx Normal, Moist Mucous Membranes Neck: Full Range of Motion, Normal Inspection, Non Tender Respiratory: No Respiratory Distress, Decreased Breath Sounds, Rhonci, Other (Wearing BiPAP) Cardiovascular: Regular Rate, Rhythm, No Edema, No Murmur Capillary Refill: Less Than 3 Seconds Gastrointestinal: normal bowel sounds, non tender, soft (has midlinte) Extremity: Normal Inspection, Non Tender, No Pedal Edema, Other (has left midline, site ok) Neurologic/Psychiatric: Alert, Oriented x3 Skin: Normal Color, Warm/Dry Lymphatic: No Adenopathy Results Lab Laboratory Tests 12/06/20 04:20 12/07/20 04:10 Assessment/Plan Assessment/Plan See free text. Critical Care: Ventilator Management Time spent on discussion(mins): 0 Diagnosis/Problems Diagnosis/Problems (1) Obesity Status: Chronic (2) Pneumonia due to COVID-19 virus Status: Acute (3) Acute respiratory failure due to COVID-19 Status: Acute ARMOND MOODY MD Dec 07, 2020 10:11
--- NOTE | 2020-12-07 10:25 | Diagnostic Imaging Report ---
PROCEDURE: Ultrasound abdomen complete. TECHNIQUE: Multiple real-time grayscale images were obtained of the abdomen in various projections. REASON FOR EXAM: COVID-19 positive. Abdominal pain. COMPARISON: 12/06/2020. FINDINGS: The liver demonstrates increased echogenicity throughout. There are no focal lesions. No intra or extrahepatic biliary dilatation is present. The common bile duct is not visualized. There is no evidence of cholelithiasis or gallbladder wall thickening or pericholecystic fluid. The gallbladder is mildly distended. Sonographic Corona's sign is negative. The pancreas is not well seen due to overlying bowel gas. Both kidneys are normal in size and echogenicity. The cortical thickness and the corticomedullary differentiation is well maintained. The right kidney measures 11.8 cm. The left kidney measures 11.5 cm. Simple cortical cysts are noted in the kidneys. There is no evidence of calculi, focal mass or hydronephrosis. The spleen is not enlarged. The visualized upper aorta and IVC are normal in course and caliber. There is no ascites in the upper abdomen. IMPRESSION: 1. Hepatic steatosis. No ascites in the abdomen. 2. Mildly distended gallbladder without evidence of cholelithiasis. 3. Nonvisualization of the pancreas due to overlying bowel gas. Dictated by: Dictated on workstation # [id number]
[2020-12-07 10:49] VITALS: BP 105/54
[2020-12-07] MEDS: NOREPINEPHRINE 8 MG/250 ML 250 ML IV SCH ×4 (11:12→22:38)
[2020-12-07] MEDS: inSUlin ASPART (NovoLOG) 1 UNIT/0.01 ML (CHARGE PER UNIT) SC SCH ×2 (11:38→17:29)
[2020-12-07] MEDS: LACTATED RINGERS 1,000 ML IV SCH (13:32)
[2020-12-07 14:05] VITALS: BP 108/58
[2020-12-07] MEDS: CISATRACURIUM DRIP 250 ML IV SCH (17:34)
[2020-12-07 19:10] VITALS: BP 90/61
[2020-12-07] MEDS: MELATONIN 3 MG TABLET PO SCH (19:50)
[2020-12-07] MEDS: DexMEDEtomidine 250 ML DRIP 250 ML IV SCH (19:53)
[2020-12-07] MEDS: PHENYLEPHRINE INJECTION 20 MG in NS (IVPB) 250 ML IV SCH (20:37)
[2020-12-07 21:58] VITALS: BP 118/72
[2020-12-08] MEDS: inSUlin ASPART (NovoLOG) 1 UNIT/0.01 ML (CHARGE PER UNIT) SC SCH ×5 (00:13→23:55)
[2020-12-08] MEDS: CISATRACURIUM DRIP 250 ML IV SCH ×4 (00:13→23:00)
[2020-12-08] MEDS: PROPOFOL DRIP (ICU) 100 ML IV SCH ×6 (00:22→23:36)
[2020-12-08] MEDS: fentaNYL DRIP PRE-MIX 250 ML IV SCH ×5 (00:34→22:17)
[2020-12-08] MEDS: PHENYLEPHRINE INJECTION 20 MG in NS (IVPB) 250 ML IV SCH ×7 (01:19→23:36)
[2020-12-08] MEDS ORDERED: PHENYLEPHRINE INJ 10 MG/ML (FOR DRIP KITS ONLY) ONE (01:38)
[2020-12-08] MEDS: NOREPINEPHRINE 8 MG/250 ML 250 ML IV SCH ×2 (01:49→05:49)
[2020-12-08] MEDS: RT-ALBUTEROL HFA 8.5 GM INHALER IH SCH ×6 (02:33→22:02)
[2020-12-08 02:34] VITALS: BP 101/72
[2020-12-08] MEDS: DexMEDEtomidine 250 ML DRIP 250 ML IV SCH ×3 (03:44→18:05)
[2020-12-08 03:58] LABS: BASOPHILS # (AUTO) 0.1 10^3/uL (0.0-0.1); BASOPHILS % (AUTO) 0 % (0-10); EOSINOPHILS # (AUTO) 0.4 10^3/uL (0.0-0.3); EOSINOPHILS % (AUTO) 1 % (0-10); HEMATOCRIT 52 % (40-54); HEMOGLOBIN 16.4 g/dL (13.3-17.7); LYMPHOCYTES # (AUTO) 1.4 10^3/uL (1.0-4.0); LYMPHOCYTES % (AUTO) 5 % (12-44); MEAN CORPUSCULAR HEMOGLOBIN 28 pg (25-34); MEAN CORPUSCULAR HGB CONC 32 g/dL (32-36); MEAN CORPUSCULAR VOLUME 88 fL (80-99); MEAN PLATELET VOLUME 9.4 fL (9.0-12.2); MONOCYTES # (AUTO) 0.7 10^3/uL (0.0-1.0); MONOCYTES % (AUTO) 2 % (0-12); NEUTROPHILS # (AUTO) 27.5 10^3/uL (1.8-7.8); NEUTROPHILS % (AUTO) 90 % (42-75); PLATELET COUNT 237 10^3/uL (130-400)
[2020-12-08 03:59] LABS: ABG BASE EXCESS -9.9 MMOL/L (-2.5-2.5); ABG OXYGEN SATURATION 94 % (94-100); ABG PCO2 67 MMHG (35-45); ABG PO2 82 MMHG (79-93); ABG TCO2 20.4 MMOL/L (21.0-31.0)
[2020-12-08 04:03] LABS: ABG PH 7.08 (7.37-7.43); ALLENS TEST ART LINE
[2020-12-08 04:04] LABS: INSPIRED O2 50%; PATIENT TEMP 38; VENTILATOR YES; WHITE BLOOD COUNT 30.5 10^3/uL (4.3-11.0)
[2020-12-08 04:10] LABS: POTASSIUM 5.4 MMOL/L (3.6-5.0)
[2020-12-08 04:11] LABS: CALCIUM 7.6 MG/DL (8.5-10.1)
[2020-12-08 04:15] LABS: PHOSPHORUS 4.8 MG/DL (2.3-4.7)
[2020-12-08 04:16] LABS: CREATININE SERUM 1.95 MG/DL (0.60-1.30)
[2020-12-08 04:18] LABS: MAGNESIUM 2.2 MG/DL (1.6-2.4)
[2020-12-08] MEDS ORDERED: SODIUM BICARB 8.4% 50 MEQ/50 ML (ABBOTT) SYR ONE (05:34)
[2020-12-08] MEDS ORDERED: 1/2 NS IV SOLUTION 1,000 ML IV ONE (05:34)
[2020-12-08] MEDS ORDERED: NS (IVPB) 250 ML ONE (05:34)
[2020-12-08] MEDS: SODIUM BICARBONATE 8.4% VIAL 100 MEQ in 1/2 NS IV SOLUTION 1,000 ML IV SCH ×2 (05:52→15:59)
[2020-12-08] MEDS: KCL 20 MEQ TAB (K-DUR) PO SCH (06:11)
[2020-12-08] MEDS: MAGNESIUM 1 GM/100 ML IVPB 100 ML IV SCH (06:11)
[2020-12-08] MEDS: POTASSIUM CL 10MEQ/50ML IVPB 50 ML IV SCH (06:11)
[2020-12-08 06:48] VITALS: BP 133/67
[2020-12-08 06:58] LABS: BILIRUBIN,URINE NEGATIVE (NEGATIVE); CLARITY,URINE CLOUDY; COLOR,URINE YELLOW; GLUCOSE, URINE (UA) NEGATIVE (NEGATIVE); KETONES,URINE NEGATIVE (NEGATIVE); LEUKOCYTE ESTERASE ,URINE NEGATIVE (NEGATIVE); NITRITE,URINE NEGATIVE (NEGATIVE); PH,URINE 5.5 (5-9); PROTEIN,URINE 1+ (NEGATIVE)
[2020-12-08 07:13] LABS: AMORPHOUS SEDIMENT,UR FEW AMOR URATES /LPF; BACTERIA,URINE NEGATIVE /HPF; RBC,URINE TNTC /HPF
[2020-12-08] MEDS: ENOXAPARIN 100 MG/1 ML (LOVENOX) SYR SC SCH ×2 (08:05→19:45)
[2020-12-08] MEDS: PANTOPRAZOLE 40 MG (PROTONIX) VIAL IV SCH (08:05)
[2020-12-08] MEDS: SENNA W/DOCUSATE (SENOKOT S) TABLET PO SCH ×2 (08:06→19:55)
[2020-12-08] MEDS: polyethylene glycoL POWDER 17 GM (MIRALAX) PACK PO SCH ×2 (08:06→19:55)
--- NOTE | 2020-12-08 10:12 | Diagnostic Imaging Report ---
EXAM: CHEST 1 VIEW, AP/PA ONLY INDICATION: Covid positive. Change in respiratory status. COMPARISON: Chest radiograph 12/06/2020. FINDINGS: ETT tip just below the level of the clavicles. NG tube tip in the stomach. Diffuse airspace opacities throughout both lungs are similar to the prior exam. Normal heart size and central pulmonary vascularity. Right PICC tip mid SVC. No large pleural effusion or pneumothorax. IMPRESSION: 1. Stable diffuse airspace opacities in both lungs. 2. Support lines in the expected positions. Dictated by: Dictated on workstation # [id number]
[2020-12-08 10:45] VITALS: BP 125/58
[2020-12-08] MEDS: ACETAMINOPHEN 325 MG TABLET PO PRN (11:37)
--- NOTE | 2020-12-08 11:51 | Progress Note - Hospitalist ---
Subjective HPI/CC On Admission Date Seen by Provider: Dec 08, 2020 Time Seen by Provider: 10:30 Chief complaint: COVID-19 pneumonia with sepsis History present illness: This is a 60-year-old white male who was diagnosed with Covid 9 days ago who presented to the ER with shortness of breath fever and lethargy. Patient was found to have hypotension responded to aggressive IV fluids and placed on BiPAP for hypoxia. Currently it is difficult to communicate due to BiPAP. We will initiate IV antibiotics and closely monitor since he is high risk for decompensation. Subjective/Events-last exam Patient remains intubated Prone position noted Updated and daughter Introduced myself as Dr. Nicole but 80% through the conversation they stated that I was a nurse so I clarified and they told me that her niece is a sports nutritionist who will be in touch of which I reassured that COVID-19 pneumonia especially ventilator patients were maintained on protocol throughout every facility treating these patients. Check meds and labs Rash on back will be addressed Focused Exam Lactate Level 12/08/20 05:30: Lactic Acid Level 1.98 Objective Exam Vital Signs Vital Signs Date Time Temp Pulse Resp B/P (MAP) Pulse Ox O2 Delivery O2 Flow Rate FiO2 12/09/20 06:56 58 34 93 60 12/09/20 06:00 35.7 Mechanical Ventilator 60.00 Capillary Refill : Less Than 3 Seconds General Appearance: No Apparent Distress, WD/WN, Chronically ill, Other (Sedated intubated) Respiratory: No Accessory Muscle Use, No Respiratory Distress, Decreased Breath Sounds Cardiovascular: Regular Rate, Rhythm Results/Procedures Lab Laboratory Tests 12/08/20 14:09 12/09/20 02:30 Patient resulted labs reviewed. Imaging: Reviewed Imaging Report Assessment/Plan Assessment and Plan Assess & Plan/Chief Complaint Assessment: Acute hypoxic respiratory failure COVID-19 pneumonia Hypotension requiring pressor therapy Sepsis Bacterial pneumonia Hypothyroidism DJD Plan: BiPAP Supportive care Monitor closely 12/07/2020: Maintain intubation [place] has a bed bit not stable yet 11/27/20: Monitor ABG Monitor closely 11/28/2020: Vapotherm and BiPAP Monitor closely 11/29/2020: Slow recovery Guarded prognosis Still at risk for intubation 12/08/2020: Supportive care Updated family Guarded prognosis Critical Care Ventilator Management CARISSA NICOLE DO Dec 08, 2020 11:51
[2020-12-08] MEDS ORDERED: MEROPENEM 1,000 MG in WATER (STERILE) FOR INJECTION 20 ML IV SCH (12:15)
[2020-12-08] MEDS: MEROPENEM 500 MG/SWFI 10 ML IV PUSH IV SCH ×4 (12:34→19:45)
[2020-12-08 12:49] LABS: ABG BASE EXCESS -7.1 MMOL/L (-2.5-2.5); ABG OXYGEN SATURATION 97 % (94-100); ABG PCO2 62 MMHG (35-45); ABG PO2 111 MMHG (79-93); ABG TCO2 21.8 MMOL/L (21.0-31.0)
[2020-12-08 12:52] LABS: ABG PH 7.15 (7.37-7.43)
[2020-12-08 12:53] LABS: ALLENS TEST ART LINE; INSPIRED O2 50%; PATIENT TEMP 38.6; VENTILATOR NO
[2020-12-08 14:29] LABS: POTASSIUM 4.6 MMOL/L (3.6-5.0)
[2020-12-08 14:31] LABS: CALCIUM 6.9 MG/DL (8.5-10.1)
[2020-12-08 14:35] LABS: CREATININE SERUM 2.2 MG/DL (0.60-1.30)
[2020-12-08 14:49] VITALS: BP 129/61
[2020-12-08 18:36] VITALS: BP 114/53
[2020-12-08] MEDS: ZINC OXIDE 16% OINT (BUTT PASTE) 57 GM TUBE TOP PRN (19:45)
[2020-12-08] MEDS: LINEZOLID IVPB 300 ML IV SCH (19:45)
[2020-12-08] MEDS: LACRI-LUBE OPTHALMIC OINT 3.5 GM TUBE OU SCH (19:55)
[2020-12-08] MEDS: MELATONIN 3 MG TABLET PO SCH (19:55)
[2020-12-08 22:02] VITALS: BP 103/50
[2020-12-09 01:38] VITALS: BP 103/50
[2020-12-09] MEDS: RT-ALBUTEROL HFA 8.5 GM INHALER IH SCH ×6 (01:38→21:16)
[2020-12-09] MEDS: SODIUM BICARBONATE 8.4% VIAL 100 MEQ in 1/2 NS IV SOLUTION 1,000 ML IV SCH ×3 (02:29→23:07)
[2020-12-09 02:41] LABS: BASOPHILS % (AUTO) 0 % (0-10); EOSINOPHILS # (AUTO) 0.5 10^3/uL (0.0-0.3); EOSINOPHILS % (AUTO) 3 % (0-10); HEMATOCRIT 45 % (40-54); HEMOGLOBIN 14.2 g/dL (13.3-17.7); LYMPHOCYTES # (AUTO) 1.3 10^3/uL (1.0-4.0); LYMPHOCYTES % (AUTO) 7 % (12-44); MEAN CORPUSCULAR HEMOGLOBIN 28 pg (25-34); MEAN CORPUSCULAR HGB CONC 32 g/dL (32-36); MEAN CORPUSCULAR VOLUME 87 fL (80-99); MEAN PLATELET VOLUME 9.7 fL (9.0-12.2); MONOCYTES # (AUTO) 0.3 10^3/uL (0.0-1.0); MONOCYTES % (AUTO) 2 % (0-12); NEUTROPHILS # (AUTO) 15.7 10^3/uL (1.8-7.8); NEUTROPHILS % (AUTO) 87 % (42-75); PLATELET COUNT 139 10^3/uL (130-400); WHITE BLOOD COUNT 18.1 10^3/uL (4.3-11.0)
[2020-12-09 02:44] LABS: ABG BASE EXCESS -5.9 MMOL/L (-2.5-2.5); ABG OXYGEN SATURATION 94 % (94-100); ABG PCO2 56 MMHG (35-45); ABG PO2 68 MMHG (79-93); ABG TCO2 23.3 MMOL/L (21.0-31.0)
[2020-12-09 02:53] LABS: POTASSIUM 4.1 MMOL/L (3.6-5.0)
[2020-12-09 02:54] LABS: CALCIUM 6.4 MG/DL (8.5-10.1)
[2020-12-09 02:55] LABS: ABG PH 7.19 (7.37-7.43); ALLENS TEST ART LINE
[2020-12-09 02:56] LABS: INSPIRED O2 75%; PATIENT TEMP 35.3; VENTILATOR YES
[2020-12-09 02:58] LABS: CREATININE SERUM 2.2 MG/DL (0.60-1.30); PHOSPHORUS 4.3 MG/DL (2.3-4.7)
[2020-12-09] MEDS: PROPOFOL DRIP (ICU) 100 ML IV SCH ×3 (03:44→20:18)
[2020-12-09] MEDS: CISATRACURIUM DRIP 250 ML IV SCH ×3 (03:44→16:34)
[2020-12-09] MEDS: fentaNYL DRIP PRE-MIX 250 ML IV SCH ×4 (04:24→20:21)
[2020-12-09] MEDS: MEROPENEM 500 MG/SWFI 10 ML IV PUSH IV SCH ×6 (04:24→20:09)
[2020-12-09] MEDS: MAGNESIUM 1 GM/100 ML IVPB 100 ML IV SCH (05:01)
[2020-12-09] MEDS: KCL 20 MEQ TAB (K-DUR) PO SCH (05:01)
[2020-12-09] MEDS: POTASSIUM CL 10MEQ/50ML IVPB 50 ML IV SCH (05:01)
[2020-12-09] MEDS: inSUlin ASPART (NovoLOG) 1 UNIT/0.01 ML (CHARGE PER UNIT) SC SCH ×4 (05:02→23:07)
[2020-12-09] MEDS: PHENYLEPHRINE INJECTION 20 MG in NS (IVPB) 250 ML IV SCH ×7 (05:08→23:05)
[2020-12-09 06:56] VITALS: BP 106/51
--- NOTE | 2020-12-09 08:51 | Tele-ICU Progress Note ---
Progress Note video rounds completed 60 y/o male with Covid PNA on vent rate 34/400/90%/12 PE: pulse 81 BP: 66/44 O2 sat 92% Labs: AB.19/56/61/21 Wbc: 18 hgb: 14 Plt: 139 Na 144 K: 4.1 Cl: 112 CO2: 13 BUN: 28 Creat: 2.8 Glu: 95 Meds: on zosyn and meropenam Roland and levophed Bicarb Lovenox 100BID Protonix Continue supportive care wean as feasible Focused Exam Lactate Level 12/08/20 05:30: Lactic Acid Level 1.98 Height, Weight, BMI Height: '" Weight: lbs. oz. kg; 34.90 BMI Method: VENKATESH LANDAVERDE MD Dec 09, 2020 08:51
[2020-12-09] MEDS: LINEZOLID IVPB 300 ML IV SCH ×2 (09:04→20:10)
[2020-12-09] MEDS: ENOXAPARIN 100 MG/1 ML (LOVENOX) SYR SC SCH ×2 (09:05→20:10)
[2020-12-09] MEDS: SENNA W/DOCUSATE (SENOKOT S) TABLET PO SCH ×2 (09:05→20:09)
[2020-12-09] MEDS: PANTOPRAZOLE 40 MG (PROTONIX) VIAL IV SCH (09:05)
[2020-12-09] MEDS: polyethylene glycoL POWDER 17 GM (MIRALAX) PACK PO SCH ×2 (09:08→20:15)
[2020-12-09] MEDS: MICONAZOLE 2% POWDER (DESENEX AF) 90 GM TOP SCH ×2 (09:08→20:10)
[2020-12-09] MEDS: NYSTATIN CREAM (MYCOSTATIN) 30 GM TUBE TP SCH ×3 (09:08→20:10)
--- NOTE | 2020-12-09 09:45 | Diagnostic Imaging Report ---
EXAMINATION: Portable semierect AP chest at 8:37 AM INDICATION: Respiratory distress, Covid positive The appearance of the chest has worsened since the prior study of 12/08/2020 as the diffuse alveolar/interstitial infiltrates involving both lungs seen previously have increased. There is now near complete opacification of both lungs. The heart is stable in size. The mediastinum is not widened. The osseous structures are intact. The supportive tubes and lines seem similar in position. IMPRESSION: The appearance of the chest has worsened since the prior study as there is much greater involvement of both lungs by pneumonia/atelectasis and/or pulmonary edema. A follow-up study would be recommended for continued evaluation. Dictated by: Dictated on workstation # [id number]
[2020-12-09 10:34] VITALS: BP 118/62
[2020-12-09] MEDS: LACRI-LUBE OPTHALMIC OINT 3.5 GM TUBE OU SCH ×3 (11:07→20:10)
[2020-12-09] MEDS: NOREPINEPHRINE 8 MG/250 ML 250 ML IV SCH (12:12)
[2020-12-09] MEDS ORDERED: LACTATED RINGERS 1,000 ML IV ONE (12:32)
--- NOTE | 2020-12-09 13:35 | Progress Note - Hospitalist ---
Subjective HPI/CC On Admission Date Seen by Provider: Dec 09, 2020 Time Seen by Provider: 11:00 Chief complaint: COVID-19 pneumonia with sepsis History present illness: This is a 60-year-old white male who was diagnosed with Covid 9 days ago who presented to the ER with shortness of breath fever and lethargy. Patient was found to have hypotension responded to aggressive IV fluids and placed on BiPAP for hypoxia. Currently it is difficult to communicate due to BiPAP. We will initiate IV antibiotics and closely monitor since he is high risk for decompensation. Subjective/Events-last exam Patient remains intubated Prone position seems to be helpful Coarse distant breath sounds noted Rash on back improved with nystatin cream and powder Monitor closely Focused Exam Lactate Level 12/08/20 05:30: Lactic Acid Level 1.98 Objective Exam Vital Signs Vital Signs Date Time Temp Pulse Resp B/P (MAP) Pulse Ox O2 Delivery O2 Flow Rate FiO2 12/09/20 20:24 78 118/57 12/09/20 18:09 34 95 65 12/09/20 18:00 36.9 Mechanical Ventilator 60.00 Capillary Refill : Less Than 3 Seconds General Appearance: No Apparent Distress, WD/WN, Chronically ill, Other (Intubated and sedated) Respiratory: Crackles, Decreased Breath Sounds, Wheezing Results/Procedures Lab Laboratory Tests 12/09/20 02:30 Patient resulted labs reviewed. Imaging: Reviewed Imaging Report Assessment/Plan Assessment and Plan Assess & Plan/Chief Complaint Assessment: Acute hypoxic respiratory failure COVID-19 pneumonia Hypotension requiring pressor therapy Sepsis Bacterial pneumonia Hypothyroidism DJD Plan: BiPAP Supportive care Monitor closely 12/07/2020: Maintain intubation [place] has a bed bit not stable yet 11/27/20: Monitor ABG Monitor closely 11/28/2020: Vapotherm and BiPAP Monitor closely 11/29/2020: Slow recovery Guarded prognosis Still at risk for intubation 12/08/2020: Supportive care Updated family Guarded prognosis 12/09/2020: Monitor closely Prognosis guarded Critical Care Ventilator Management CARISSA MARTINS DO Dec 09, 2020 13:35
[2020-12-09 14:46] VITALS: BP 112/55
[2020-12-09] MEDS: DexMEDEtomidine 250 ML DRIP 250 ML IV SCH (16:35)
[2020-12-09 18:09] VITALS: BP 94/51
[2020-12-09] MEDS: MELATONIN 3 MG TABLET PO SCH (20:14)
[2020-12-09 21:16] VITALS: BP 143/65
[2020-12-10] MEDS: fentaNYL DRIP PRE-MIX 250 ML IV SCH ×5 (01:19→21:12)
[2020-12-10] MEDS: PROPOFOL DRIP (ICU) 100 ML IV SCH ×5 (01:21→23:53)
[2020-12-10 01:44] VITALS: BP 130/61
[2020-12-10] MEDS: RT-ALBUTEROL HFA 8.5 GM INHALER IH SCH ×6 (01:44→22:32)
[2020-12-10] MEDS: CISATRACURIUM DRIP 250 ML IV SCH ×3 (01:57→14:02)
[2020-12-10] MEDS: PHENYLEPHRINE INJECTION 20 MG in NS (IVPB) 250 ML IV SCH ×9 (02:02→21:20)
[2020-12-10 02:31] LABS: BASOPHILS # (AUTO) 0.1 10^3/uL (0.0-0.1); BASOPHILS % (AUTO) 0 % (0-10); EOSINOPHILS # (AUTO) 0.6 10^3/uL (0.0-0.3); EOSINOPHILS % (AUTO) 3 % (0-10); HEMATOCRIT 42 % (40-54); HEMOGLOBIN 13.3 g/dL (13.3-17.7); LYMPHOCYTES # (AUTO) 1.1 10^3/uL (1.0-4.0); LYMPHOCYTES % (AUTO) 6 % (12-44); MEAN CORPUSCULAR HEMOGLOBIN 28 pg (25-34); MEAN CORPUSCULAR HGB CONC 32 g/dL (32-36); MEAN CORPUSCULAR VOLUME 89 fL (80-99); MEAN PLATELET VOLUME 10.3 fL (9.0-12.2); MONOCYTES # (AUTO) 0.7 10^3/uL (0.0-1.0); MONOCYTES % (AUTO) 4 % (0-12); NEUTROPHILS # (AUTO) 17.8 10^3/uL (1.8-7.8); NEUTROPHILS % (AUTO) 86 % (42-75); PLATELET COUNT 145 10^3/uL (130-400); WHITE BLOOD COUNT 20.6 10^3/uL (4.3-11.0)
[2020-12-10 02:35] LABS: POTASSIUM 3.4 MMOL/L (3.6-5.0)
[2020-12-10 02:38] LABS: ABG BASE EXCESS -4.5 MMOL/L (-2.5-2.5); ABG OXYGEN SATURATION 98 % (94-100); ABG PCO2 62 MMHG (35-45); ABG PH 7.18 (7.37-7.43); ABG PO2 101 MMHG (79-93); ABG TCO2 24.8 MMOL/L (21.0-31.0)
[2020-12-10 02:40] LABS: ALLENS TEST ART LINE; INSPIRED O2 65%; PATIENT TEMP 36.1; VENTILATOR YES
[2020-12-10] MEDS: KCL 20 MEQ TAB (K-DUR) PO SCH (02:40)
[2020-12-10] MEDS: inSUlin ASPART (NovoLOG) 1 UNIT/0.01 ML (CHARGE PER UNIT) SC SCH ×4 (02:40→23:55)
[2020-12-10] MEDS: POTASSIUM CL 10MEQ/50ML IVPB 50 ML IV SCH ×3 (02:40→04:39)
[2020-12-10 02:41] LABS: CREATININE SERUM 2.17 MG/DL (0.60-1.30); PHOSPHORUS 3.9 MG/DL (2.3-4.7)
[2020-12-10 02:43] LABS: MAGNESIUM 1.7 MG/DL (1.6-2.4)
[2020-12-10 02:52] LABS: BAND NEUTROPHILS 5 %; CALCIUM 5.7 MG/DL (8.5-10.1); NEUTROPHILS % (MANUAL) 90 %
[2020-12-10 02:53] LABS: EOSINOPHILS % (MANUAL) 2 %; LYMPHOCYTES % (MANUAL) 1 %; MONOCYTES % (MANUAL) 2 %; RBC MORPH NORMAL
[2020-12-10] MEDS: NOREPINEPHRINE 8 MG/250 ML 250 ML IV SCH ×3 (03:21→17:46)
[2020-12-10] MEDS: MEROPENEM 500 MG/SWFI 10 ML IV PUSH IV SCH ×6 (05:39→20:25)
[2020-12-10] MEDS: MAGNESIUM 1 GM/100 ML IVPB 100 ML IV SCH ×3 (05:40→06:49)
--- NOTE | 2020-12-10 07:01 | Occ Therapy Progress Note ---
Therapy Progress Note Pt is currently intubated. OT will continue to monitor pt and initiate therapy when pt is more medically stable and able to actively participate in skilled therapy. DEXTER HAWK Dec 10, 2020 07:01
--- NOTE | 2020-12-10 07:02 | Diagnostic Imaging Report ---
EXAMINATION: Chest 1 view HISTORY: Pneumonia COMPARISON: 12/09/2020 FINDINGS: Stable appearance of the cardiac silhouette. Medical support lines and tubes are unchanged. Stable patchy interstitial and airspace opacities seen throughout both lungs. No significant pleural fluid or pneumothorax is seen. The osseous structures are intact. IMPRESSION: 1. Stable patchy interstitial airspace opacities throughout both lungs compatible with multifocal pneumonia. Dictated by: Dictated on workstation # [id number]
[2020-12-10 07:04] VITALS: BP 92/48
[2020-12-10] MEDS: SENNA W/DOCUSATE (SENOKOT S) TABLET PO SCH ×2 (07:54→20:28)
[2020-12-10] MEDS: LACRI-LUBE OPTHALMIC OINT 3.5 GM TUBE OU SCH ×3 (07:54→20:28)
[2020-12-10] MEDS: PANTOPRAZOLE 40 MG (PROTONIX) VIAL IV SCH (07:54)
[2020-12-10] MEDS: LINEZOLID IVPB 300 ML IV SCH ×2 (07:54→21:08)
[2020-12-10] MEDS: MICONAZOLE 2% POWDER (DESENEX AF) 90 GM TOP SCH ×2 (07:55→20:28)
[2020-12-10] MEDS: polyethylene glycoL POWDER 17 GM (MIRALAX) PACK PO SCH ×2 (07:55→21:47)
[2020-12-10] MEDS: ENOXAPARIN 100 MG/1 ML (LOVENOX) SYR SC SCH ×2 (07:55→20:28)
--- NOTE | 2020-12-10 07:56 | Physical Therapy Progress Note ---
Therapy Progress Note Pt is currently intubated. PT will continue to monitor pt and initiate therapy when pt is more medically stable and able to actively participate in skilled therapy. ANU RAMOS PT Dec 10, 2020 07:56
[2020-12-10] MEDS: SODIUM BICARBONATE 8.4% VIAL 100 MEQ in 1/2 NS IV SOLUTION 1,000 ML IV SCH ×2 (09:32→19:00)
[2020-12-10 09:39] VITALS: BP 139/78
[2020-12-10] MEDS ORDERED: ADENOSINE 6 MG/2 ML (ADENOCARD) VIAL IV ONE ×2 (10:15→10:30)
[2020-12-10] MEDS: DexMEDEtomidine 250 ML DRIP 250 ML IV SCH (10:37)
[2020-12-10] MEDS ORDERED: SODIUM BICARB 8.4% 50 MEQ/50 ML (ABBOTT) SYR ONE (10:49)
--- NOTE | 2020-12-10 10:52 | Progress Note - Hospitalist ---
Subjective HPI/CC On Admission Date Seen by Provider: Dec 10, 2020 Time Seen by Provider: 10:30 Chief complaint: COVID-19 pneumonia with sepsis History present illness: This is a 60-year-old white male who was diagnosed with Covid 9 days ago who presented to the ER with shortness of breath fever and lethargy. Patient was found to have hypotension responded to aggressive IV fluids and placed on BiPAP for hypoxia. Currently it is difficult to communicate due to BiPAP. We will initiate IV antibiotics and closely monitor since he is high risk for decompensation. Subjective/Events-last exam Pt now in AF with RVR Nurse called family to update on once again another organ failure to add to the multi system organ failure Pt has a very poor prognosis Focused Exam Lactate Level Objective Exam Vital Signs Vital Signs Date Time Temp Pulse Resp B/P (MAP) Pulse Ox O2 Delivery O2 Flow Rate FiO2 12/11/20 05:52 68 101/48 12/11/20 05:19 Mechanical Ventilator 100.00 12/11/20 05:00 35.7 35 92 12/11/20 04:00 70 Capillary Refill : Less Than 3 Seconds General Appearance: No Apparent Distress, Chronically ill, Obese, Other (Sedated and intubated) Respiratory: No Accessory Muscle Use, No Respiratory Distress, Crackles, Decreased Breath Sounds Results/Procedures Lab Laboratory Tests 12/11/20 02:45 Patient resulted labs reviewed. Imaging: Reviewed Imaging Report Assessment/Plan Assessment and Plan Assess & Plan/Chief Complaint Assessment: Acute hypoxic respiratory failure COVID-19 pneumonia New onset atrial fibrillation with rapid ventricular response Hypotension requiring pressor therapy Sepsis Bacterial pneumonia Hypothyroidism DJD Plan: BiPAP Supportive care Monitor closely 12/07/2020: Maintain intubation [place] has a bed bit not stable yet 11/27/20: Monitor ABG Monitor closely 11/28/2020: Vapotherm and BiPAP Monitor closely 11/29/2020: Slow recovery Guarded prognosis Still at risk for intubation 12/08/2020: Supportive care Updated family Guarded prognosis 12/09/2020: Monitor closely Prognosis guarded 12/10/2020: Atrial fibrillation with rapid ventricular response management Prognosis guarded Critical Care Ventilator Management CARISSA MARTINS DO Dec 10, 2020 10:52
--- NOTE | 2020-12-10 10:55 | Tele-ICU Progress Note ---
Subjective Date Seen by a Provider: Dec 10, 2020 Time Seen by a Provider: 10:55 Sepsis Event Evaluation Height, Weight, BMI Height: '" Weight: lbs. oz. kg; 34.90 BMI Method: Focused Exam Lactate Level 12/08/20 05:30: Lactic Acid Level 1.98 Exam Exam Patient acknowledged, consented, and participated in this virtual visit which wa s conducted using real time audio/video Vital Signs Date Time Temp Pulse Resp B/P (MAP) Pulse Ox O2 Delivery O2 Flow Rate FiO2 12/10/20 10:37 129 139/78 12/10/20 10:00 36.3 107 28 91 Mechanical Ventilator 60.00 12/10/20 09:39 110 34 96 60 12/10/20 09:32 135 91/52 12/10/20 09:32 130 12/10/20 09:00 36.5 82 33 91 Mechanical Ventilator 60.00 12/10/20 08:05 92 Mechanical Ventilator 60 12/10/20 08:00 36.6 77 34 92 Mechanical Ventilator 60.00 12/10/20 07:38 36.2 12/10/20 07:04 86 34 91 60 12/10/20 07:00 36.5 82 34 92 Mechanical Ventilator 60.00 12/10/20 07:00 83 12/10/20 06:55 79 105/53 12/10/20 06:49 Mechanical Ventilator 60.00 12/10/20 06:48 89 110/55 12/10/20 06:45 81 114/57 12/10/20 06:00 36.2 80 34 95 Mechanical Ventilator 60.00 12/10/20 05:00 35.9 82 34 95 Mechanical Ventilator 60.00 12/10/20 04:38 87 82/45 12/10/20 04:00 35.9 79 33 94 Mechanical Ventilator 60.00 12/10/20 04:00 95 Mechanical Ventilator 65 12/10/20 03:00 36.1 68 34 97 Mechanical Ventilator 60.00 12/10/20 02:02 69 115/58 12/10/20 02:00 36.1 69 34 96 Mechanical Ventilator 60.00 12/10/20 01:44 68 34 97 65 12/10/20 01:21 125/60 12/10/20 01:00 36.2 72 34 96 Mechanical Ventilator 60.00 12/10/20 01:00 72 12/10/20 00:00 36.4 73 34 96 Mechanical Ventilator 60.00 12/09/20 23:59 96 Mechanical Ventilator 65 12/09/20 23:05 81 117/61 12/09/20 23:00 36.5 76 33 94 Mechanical Ventilator 60.00 12/09/20 22:00 36.6 73 34 95 Mechanical Ventilator 60.00 12/09/20 21:16 75 34 96 65 12/09/20 21:00 36.8 81 34 95 Mechanical Ventilator 60.00 12/09/20 20:24 78 118/57 12/09/20 20:18 76 115/56 12/09/20 20:00 37 79 34 95 Mechanical Ventilator 60.00 12/09/20 20:00 96 Mechanical Ventilator 65 12/09/20 19:00 78 12/09/20 19:00 37 78 34 94 Mechanical Ventilator 60.00 12/09/20 18:09 83 34 95 65 12/09/20 18:00 36.9 79 33 95 Mechanical Ventilator 60.00 12/09/20 17:57 78 106/54 12/09/20 17:00 36.7 72 33 94 Mechanical Ventilator 60.00 12/09/20 16:35 75 80/43 12/09/20 16:35 74 12/09/20 16:00 91 Mechanical Ventilator 65 12/09/20 16:00 36.2 73 33 92 Mechanical Ventilator 60.00 12/09/20 15:00 35.6 69 34 93 Mechanical Ventilator 60.00 12/09/20 14:46 65 34 95 65 12/09/20 14:00 35.7 66 33 97 Mechanical Ventilator 60.00 12/09/20 13:00 36.1 68 19 96 Mechanical Ventilator 60.00 12/09/20 12:42 74 12/09/20 12:00 91 Mechanical Ventilator 80 12/09/20 12:00 36.4 73 34 95 Mechanical Ventilator 60.00 12/09/20 11:08 76 89/51 12/09/20 11:00 36.6 76 34 94 Mechanical Ventilator 60.00 I & O 12/10/20 07:00 Intake Total 3496 ml Output Total 1750 ml Balance 1746 ml Height & Weight Height: '" Weight: lbs. oz. kg; 34.90 BMI Method: General Appearance: No Apparent Distress, WD/WN, Chronically ill, Other (Intubated and sedated) HEENT: PERRL/EOMI, Normal ENT Inspection, Pharynx Normal, Moist Mucous Membranes Neck: Full Range of Motion, Normal Inspection, Non Tender Respiratory: Crackles, Decreased Breath Sounds, Wheezing Cardiovascular: Regular Rate, Rhythm Capillary Refill: Less Than 3 Seconds Gastrointestinal: normal bowel sounds, non tender, soft (has midlinte) Extremity: Normal Inspection, Non Tender, No Pedal Edema, Other (has left midli ne, site ok) Neurologic/Psychiatric: Alert, Oriented x3 Skin: Normal Color, Warm/Dry Lymphatic: No Adenopathy Results Lab Laboratory Tests 12/08/20 14:09 12/09/20 02:30 12/10/20 02:10 Assessment/Plan Assessment/Plan (Tele-ICU Physician , Progress Note ) Available chart/ vitals / labs / Images reviewed Video assessment done using teleICU camera, rest of exam as per RN Discussed with RN Events overnight : tolerated vapotherm Afebrile I/O = NEG Drips: bicarb nimbex Pressors: Roland 150 and levophed 0.01 Sedation gtt: ( RASS ) propofol precedex fentanyl VENT SETTINGS. 400 - 34-+12 60% ABG reviewed Not candidate for SBT today Contraindications: Cardiovascular Stability / Sedation Score / FI02/PEEP / ABG / CXR EXAM PER RN Consultants: Hospital course: 11/26 from ER with hypotension 80/50 and 86% RA ( covid ) 11/27 - DID NOT TOLERATED VAPOTHERM, ON BIAPAP 11/28 - 30L 100% vapotherm + BIPAP prn 11/29 - bipap 15/10 65% rr22 tv 600 MV 13L 12/02 vapotherm 40L 100% (12/06) INTUBATED (12/07) Sedated/paralyzed, WBC up, ?bacterial PNA. On ABX (12/08) BEBETO A/P Acute hypoxic resp failure with COVID PNA , no PE on CT 11/23 and 11/26 - Intubated , paralyzed 65% +12 PAP 45 -PRONED ASMT-Yhhocvtlmja-7/COVID-19 infection- ( symptoms11/16 , Dx 11/20 ) -Remdesivir finished -Steroids IV - finished -Hypercoagulable state , DDIMER 3.7 on 11/26 -> lovenox ppx dose - 11/30 d dimer 11 ->lovenox 100 q 12 ( no evidence of large PE on CT 11/23 and 11/26 ) = CRP IS ELEVATED - ACTEMRA 12/02 Shock - with infection and acidosis - will start on stress dose steroids 12/10 - to wean off pressors A FIB RVR 12/10 - no respond to adenosisne - amio gtt - ac with full dose lovenox superimposed bact PNA -PCT 0.16, CEFEPIME AND Z MAX STARTED 11/26 - finished 5 day course =zosyn and meropenam BEBETO- worsenig , on bicarb gtt - follow abg . monitor Severe met acidosis and mild respo acodosis - can not increase MV with PAP > 45 , follow closely Lines : PICC (Central Line Necessity Reviewed) Gaston: + OG: + Nutrition: Analgesia: na Anxiety/ delirium na VTE Prophylaxis: lovenox 100 bid Stress Ulcer Prophylaxis: PPI Glycemic Control: OK Plans in collaboration with bedside consultants and IM MDs. Discussed with RN to reach out if any questions or concerns A total of 45 minutes of critical care time was devoted to this patient today, required to treat and/or prevent further deterioration of critical care condition ( as above KAYE PEDERSEN MD Dec 10, 2020 10:55
[2020-12-10] MEDS: NYSTATIN CREAM (MYCOSTATIN) 30 GM TUBE TP SCH ×3 (10:58→20:28)
[2020-12-10] MEDS ORDERED: AMIODARONE FOR BOLUS 150 MG in D5W 100 ML IVPB 100 ML IV ONE (11:00)
[2020-12-10] MEDS ORDERED: SODIUM BICARB 8.4% 50 MEQ/50 ML VIAL IV ONE (11:00)
[2020-12-10] MEDS: AMIODARONE INJECTION 450 MG in D5W IV SOLUTION (EXCEL) 250 ML IV SCH ×2 (11:24→18:36)
[2020-12-10 13:20] LABS: ABG BASE EXCESS -3.2 MMOL/L (-2.5-2.5); ABG OXYGEN SATURATION 94 % (94-100); ABG PCO2 61 MMHG (35-45); ABG PO2 74 MMHG (79-93); ABG TCO2 25.5 MMOL/L (21.0-31.0)
[2020-12-10 13:40] LABS: ABG PH 7.21 (7.37-7.43)
[2020-12-10 13:41] LABS: INSPIRED O2 60%; PATIENT TEMP 37; VENTILATOR NO
[2020-12-10] MEDS: HYDROCORTISONE 100 MG/2 ML (Solu-CORTEF) VIAL IV SCH ×2 (14:02→21:08)
[2020-12-10 14:22] VITALS: BP 152/63
[2020-12-10 18:42] VITALS: BP 142/63
[2020-12-10] MEDS: MELATONIN 3 MG TABLET PO SCH (21:47)
[2020-12-10 22:32] VITALS: BP 162/68
[2020-12-11] MEDS: PHENYLEPHRINE INJECTION 20 MG in NS (IVPB) 250 ML IV SCH ×6 (01:06→14:57)
[2020-12-11] MEDS: CISATRACURIUM DRIP 250 ML IV SCH ×3 (01:54→13:13)
[2020-12-11] MEDS: fentaNYL DRIP PRE-MIX 250 ML IV SCH ×5 (01:55→21:14)
[2020-12-11 02:57] LABS: BASOPHILS # (AUTO) 0.1 10^3/uL (0.0-0.1); BASOPHILS % (AUTO) 0 % (0-10); EOSINOPHILS # (AUTO) 0.1 10^3/uL (0.0-0.3); EOSINOPHILS % (AUTO) 0 % (0-10); HEMATOCRIT 39 % (40-54); HEMOGLOBIN 12.2 g/dL (13.3-17.7); LYMPHOCYTES # (AUTO) 0.6 10^3/uL (1.0-4.0); LYMPHOCYTES % (AUTO) 3 % (12-44); MEAN CORPUSCULAR HEMOGLOBIN 27 pg (25-34); MEAN CORPUSCULAR HGB CONC 31 g/dL (32-36); MEAN CORPUSCULAR VOLUME 88 fL (80-99); MONOCYTES # (AUTO) 0.3 10^3/uL (0.0-1.0); MONOCYTES % (AUTO) 2 % (0-12); NEUTROPHILS # (AUTO) 18.6 10^3/uL (1.8-7.8); NEUTROPHILS % (AUTO) 92 % (42-75); PLATELET COUNT 129 10^3/uL (130-400); WHITE BLOOD COUNT 20.2 10^3/uL (4.3-11.0)
[2020-12-11 02:59] LABS: ABG BASE EXCESS -1.8 MMOL/L (-2.5-2.5); ABG OXYGEN SATURATION 97 % (94-100); ABG PCO2 60 MMHG (35-45); ABG PO2 82 MMHG (79-93); ABG TCO2 26.8 MMOL/L (21.0-31.0)
[2020-12-11 03:00] LABS: ABG PH 7.24 (7.37-7.43); ALLENS TEST ART LINE; INSPIRED O2 60%; VENTILATOR YES
[2020-12-11 03:10] LABS: POTASSIUM 3.3 MMOL/L (3.6-5.0)
[2020-12-11] MEDS: RT-ALBUTEROL HFA 8.5 GM INHALER IH SCH ×6 (03:14→21:34)
[2020-12-11 03:15] VITALS: BP 138/62
[2020-12-11 03:16] LABS: CREATININE SERUM 2.03 MG/DL (0.60-1.30); PHOSPHORUS 3.2 MG/DL (2.3-4.7)
[2020-12-11 03:18] LABS: MAGNESIUM 1.8 MG/DL (1.6-2.4)
[2020-12-11 03:20] LABS: CALCIUM 5.2 MG/DL (8.5-10.1)
[2020-12-11] MEDS: POTASSIUM CL 10MEQ/50ML IVPB 50 ML IV SCH ×5 (04:04→06:44)
[2020-12-11] MEDS: MAGNESIUM 1 GM/100 ML IVPB 100 ML IV SCH (04:04)
[2020-12-11] MEDS: KCL 20 MEQ TAB (K-DUR) PO SCH (04:04)
[2020-12-11] MEDS: inSUlin ASPART (NovoLOG) 1 UNIT/0.01 ML (CHARGE PER UNIT) SC SCH ×3 (04:05→17:34)
[2020-12-11] MEDS: MEROPENEM 500 MG/SWFI 10 ML IV PUSH IV SCH ×6 (04:38→20:02)
[2020-12-11] MEDS: SODIUM BICARBONATE 8.4% VIAL 100 MEQ in 1/2 NS IV SOLUTION 1,000 ML IV SCH (05:51)
[2020-12-11] MEDS: HYDROCORTISONE 100 MG/2 ML (Solu-CORTEF) VIAL IV SCH ×3 (06:02→21:13)
[2020-12-11 06:30] VITALS: BP 112/49
[2020-12-11] MEDS: PROPOFOL DRIP (ICU) 100 ML IV SCH ×3 (06:45→17:33)
--- NOTE | 2020-12-11 06:58 | Occ Therapy Progress Note ---
Therapy Progress Note Pt is currently intubated. OT will continue to monitor pt and initiate therapy when pt is more medically stable and able to actively participate in skilled therapy. DEXTER HWAK Dec 11, 2020 06:58
--- NOTE | 2020-12-11 07:48 | Physical Therapy Progress Note ---
Therapy Progress Note Patient remains sedated and intubated. PT will continue to monitor patient status. ANU RAMOS PT Dec 11, 2020 07:48
--- NOTE | 2020-12-11 08:01 | Diagnostic Imaging Report ---
Portable erect AP chest at 329h. INDICATION: Hypoxia COVID The heart is stable in size when compared to the prior exam of 12/10/2020. The diffuse alveolar/interstitial pulmonary infiltrates seen previously are again evident and not significantly changed. If anything the left lung may be slightly better aerated. There does appear to be a small amount of fluid in the right lung base. The mediastinum is not widened. The osseous structures are intact. The supportive tubes and lines seem to be in good position. IMPRESSION: There is persistent involvement of both lungs by diffuse alveolar/interstitial pulmonary infiltrates. However the left lung does seem slightly better aerated. A follow-up study would be recommended for continued evaluation. Dictated by: Dictated on workstation # [id number]
[2020-12-11] MEDS: ENOXAPARIN 100 MG/1 ML (LOVENOX) SYR SC SCH ×2 (08:24→20:03)
[2020-12-11] MEDS: NYSTATIN CREAM (MYCOSTATIN) 30 GM TUBE TP SCH ×3 (08:24→20:03)
[2020-12-11] MEDS: LACRI-LUBE OPTHALMIC OINT 3.5 GM TUBE OU SCH ×3 (08:24→20:03)
[2020-12-11] MEDS: LINEZOLID IVPB 300 ML IV SCH ×2 (08:24→20:01)
[2020-12-11] MEDS: polyethylene glycoL POWDER 17 GM (MIRALAX) PACK PO SCH ×2 (08:24→20:02)
[2020-12-11] MEDS: PANTOPRAZOLE 40 MG (PROTONIX) VIAL IV SCH (08:24)
[2020-12-11] MEDS: MICONAZOLE 2% POWDER (DESENEX AF) 90 GM TOP SCH ×2 (08:24→20:04)
[2020-12-11] MEDS: SENNA W/DOCUSATE (SENOKOT S) TABLET PO SCH ×2 (08:25→20:02)
[2020-12-11] MEDS ORDERED: FUROSEMIDE 40 MG/4 ML INJ (LASIX) IVP ONE (08:30)
[2020-12-11] MEDS ORDERED: CALCIUM GLUCONATE 10% INJ 4.65 MEQ in NS (IVPB) 50 ML IV ONE (08:30)
[2020-12-11] MEDS: DexMEDEtomidine 250 ML DRIP 250 ML IV SCH (08:34)
[2020-12-11] MEDS: SODIUM BICARBONATE 8.4% VIAL 150 MEQ in D5W 1000 ML IV SOLUTION 1,000 ML IV SCH ×2 (09:14→20:02)
[2020-12-11 09:28] VITALS: BP 127/60
--- NOTE | 2020-12-11 10:04 | Tele-ICU Progress Note ---
Subjective Date Seen by a Provider: Dec 11, 2020 Time Seen by a Provider: 10:04 Sepsis Event Evaluation Height, Weight, BMI Height: '" Weight: lbs. oz. kg; 34.90 BMI Method: Exam Exam Patient acknowledged, consented, and participated in this virtual visit which was conducted using real time audio/video Vital Signs Date Time Temp Pulse Resp B/P (MAP) Pulse Ox O2 Delivery O2 Flow Rate FiO2 12/11/20 09:28 90 34 95 90 12/11/20 08:39 84 104/52 12/11/20 08:34 84 104/52 12/11/20 07:47 95 Mechanical Ventilator 100 12/11/20 07:38 36.5 12/11/20 07:00 69 12/11/20 06:45 67 113/48 12/11/20 06:30 67 34 90 100 12/11/20 06:06 67 110/48 12/11/20 06:00 36.1 67 33 91 Mechanical Ventilator 100.00 12/11/20 05:52 68 101/48 12/11/20 05:19 Mechanical Ventilator 100.00 12/11/20 05:00 35.7 62 35 92 Mechanical Ventilator 80.00 12/11/20 04:38 90 Mechanical Ventilator 80.00 12/11/20 04:14 Mechanical Ventilator 70.00 12/11/20 04:00 92 Mechanical Ventilator 70 12/11/20 04:00 35.8 60 34 91 Mechanical Ventilator 60.00 12/11/20 03:15 63 34 93 60 12/11/20 03:00 36.0 60 34 98 Mechanical Ventilator 60.00 12/11/20 02:00 36.2 61 34 98 Mechanical Ventilator 60.00 12/11/20 01:06 67 114/58 12/11/20 01:00 63 12/11/20 01:00 36.3 63 98 Mechanical Ventilator 60.00 12/11/20 00:19 63 152/67 12/11/20 00:00 36.3 61 97 Mechanical Ventilator 60.00 12/10/20 23:59 94 Mechanical Ventilator 60 12/10/20 23:53 62 150/66 12/10/20 23:00 36.4 66 97 Mechanical Ventilator 60.00 12/10/20 22:35 66 161/67 12/10/20 22:32 66 34 95 60 12/10/20 22:25 66 163/67 12/10/20 22:25 66 170/69 12/10/20 22:00 36.6 68 95 Mechanical Ventilator 60.00 12/10/20 21:20 71 121/58 12/10/20 21:07 68 134/61 12/10/20 21:00 36.7 69 97 Mechanical Ventilator 60.00 12/10/20 20:22 69 144/62 12/10/20 20:00 36.8 69 95 Mechanical Ventilator 60.00 12/10/20 20:00 92 Mechanical Ventilator 60 12/10/20 19:00 36.8 94 Mechanical Ventilator 60.00 12/10/20 19:00 70 12/10/20 18:42 70 34 95 60 12/10/20 18:36 73 127/60 12/10/20 18:00 73 94 Mechanical Ventilator 60.00 12/10/20 17:46 77 127/60 12/10/20 17:45 75 129/61 12/10/20 17:00 78 94 Mechanical Ventilator 60.00 12/10/20 16:18 77 152/63 12/10/20 16:05 92 Mechanical Ventilator 60 12/10/20 16:00 77 90 Mechanical Ventilator 60.00 12/10/20 15:34 36.4 12/10/20 15:00 73 91 Mechanical Ventilator 60.00 12/10/20 14:22 69 34 93 60 12/10/20 14:12 67 136/62 12/10/20 14:00 91 93 Mechanical Ventilator 60.00 12/10/20 13:00 94 93 Mechanical Ventilator 60.00 12/10/20 13:00 94 12/10/20 12:23 94 Mechanical Ventilator 60 12/10/20 12:00 96 31 92 Mechanical Ventilator 60.00 12/10/20 11:59 36.1 12/10/20 11:46 93 122/64 12/10/20 11:32 125 112/62 12/10/20 11:24 125 112/62 12/10/20 11:00 36.2 125 34 91 Mechanical Ventilator 60.00 12/10/20 10:37 129 139/78 I & O 12/11/20 07:00 Intake Total 6378 ml Output Total 1710 ml Balance 4668 ml Height & Weight Height: '" Weight: lbs. oz. kg; 34.90 BMI Method: General Appearance: No Apparent Distress, Chronically ill, Obese, Other (Sedated and intubated) HEENT: PERRL/EOMI, Normal ENT Inspection, Pharynx Normal, Moist Mucous Membranes Neck: Full Range of Motion, Normal Inspection, Non Tender Respiratory: No Accessory Muscle Use, No Respiratory Distress, Crackles, Decreased Breath Sounds Cardiovascular: Regular Rate, Rhythm Capillary Refill: Less Than 3 Seconds Gastrointestinal: normal bowel sounds, non tender, soft (has midlinte) Extremity: Normal Inspection, Non Tender, No Pedal Edema, Other (has left midline, site ok) Neurologic/Psychiatric: Alert, Oriented x3 Skin: Normal Color, Warm/Dry Lymphatic: No Adenopathy Results Lab Laboratory Tests 12/10/20 02:10 12/11/20 02:45 Assessment/Plan Assessment/Plan (Tele-ICU Physician , Progress Note ) Available chart/ vitals / labs / Images reviewed Video assessment done using teleICU camera, rest of exam as per RN Discussed with RN Events overnight : - increased Fio2 to 100 % Afebrile I/O = pos 4 L Drips: bicarb nimbex Pressors: Roland 150 and levophed 0.06 Sedation gtt: ( RASS ) propofol precedex fentanyl VENT SETTINGS. 400 - 34-+12 100%. PAP 55 ABG reviewed Not candidate for SBT today Contraindications: Cardiovascular Stability / Sedation Score / FI02/PEEP / ABG / CXR EXAM PER RN Consultants: Hospital course: 11/26 from ER with hypotension 80/50 and 86% RA ( covid ) 11/27 - DID NOT TOLERATED VAPOTHERM, ON BIAPAP 11/28 - 30L 100% vapotherm + BIPAP prn 11/29 - bipap 15/02 65% rr22 tv 600 MV 13L 12/02 vapotherm 40L 100% (12/06) INTUBATED (12/07) Sedated/paralyzed, WBC up, ?bacterial PNA. On ABX (12/08) BEBETO 10 100%. PAP 55 peep 12 A/P Acute hypoxic resp failure with COVID PNA , no PE on CT 11/23 and 11/26 - Intubated , paralyzed , 400 - 34-+12 100%. PAP 55 ( no PTX i on CXR ) - decreased TV , will ccept worsenign acidosis - can try gentle diuresis -PRONED last nigth - keep supine now EQYM-Gzbcjngxvmb-0/COVID-19 infection- ( symptoms11/16 , Dx 11/20 ) -Remdesivir finished -Steroids IV - finished -Hypercoagulable state , DDIMER 3.7 on 11/26 -> lovenox ppx dose - 11/30 d dimer 11 ->lovenox 100 q 12 ( no evidence of large PE on CT 11/23 and 11/26 ) = CRP IS ELEVATED - ACTEMRA 12/02 Shock - with infection and acidosis - will start on stress dose steroids 12/10 - to wean off pressors A FIB RVR 12/10 - no respond to adenosisne - amio gtt started - converted in few hours - given shock will stoppamio 12/11- today - ac with full dose lovenox already superimposed bact PNA -PCT 0.16, CEFEPIME AND Z MAX STARTED 11/26 - finished 5 day course =zosyn and meropenam BEBETO- stable , on bicarb gtt - follow abg . monitor Severe met acidosis and mild respo acodosis - can not increase MV with PAP > 55, follow closely - cont bicarb gtt Thrombocytopenia - will monitor on lovenox , check DIC am Lines : PICC (Central Line Necessity Reviewed) Gaston: + OG: + Nutrition: starting today TF Analgesia: na Anxiety/ delirium na VTE Prophylaxis: lovenox 100 bid Stress Ulcer Prophylaxis: PPI Glycemic Control: OK Plans in collaboration with bedside consultants and IM MDs. Discussed with RN to reach out if any questions or concerns A total of 40 minutes of critical care time was devoted to this patient today, required to treat and/or prevent further deterioration of critical care condition ( as above KAYE PEDERSEN MD Dec 11, 2020 10:04
--- NOTE | 2020-12-11 10:56 | Progress Note - Hospitalist ---
Subjective HPI/CC On Admission Date Seen by Provider: Dec 11, 2020 Time Seen by Provider: 10:30 Chief complaint: COVID-19 pneumonia with sepsis History present illness: This is a 60-year-old white male who was diagnosed with Covid 9 days ago who presented to the ER with shortness of breath fever and lethargy. Patient was found to have hypotension responded to aggressive IV fluids and placed on BiPAP for hypoxia. Currently it is difficult to communicate due to BiPAP. We will initiate IV antibiotics and closely monitor since he is high risk for decompensation. Subjective/Events-last exam Pt is now a DNR Family at the bedside wants to continue treatment for now Remains on two pressors Amiodarone discontinued since now normal sinus rhythm Hematuria noted Very poor prognosis at the point Tried to reassure the family with spiritual support Objective Exam Vital Signs Vital Signs Date Time Temp Pulse Resp B/P (MAP) Pulse Ox O2 Delivery O2 Flow Rate FiO2 12/12/20 05:00 36.3 71 33 92 Mechanical Ventilator 100.00 12/12/20 04:00 100 Capillary Refill : Less Than 3 Seconds General Appearance: Chronically ill, Other (Intubated and sedated) Respiratory: Decreased Breath Sounds Cardiovascular: Regular Rate, Rhythm Results/Procedures Lab Laboratory Tests 12/12/20 02:20 Patient resulted labs reviewed. Imaging: Reviewed Imaging Report Assessment/Plan Assessment and Plan Assess & Plan/Chief Complaint Assessment: Acute hypoxic respiratory failure COVID-19 pneumonia New onset atrial fibrillation with rapid ventricular response Hypotension requiring pressor therapy Sepsis Bacterial pneumonia Hypothyroidism DJD Plan: BiPAP Supportive care Monitor closely 12/07/2020: Maintain intubation [place] has a bed bit not stable yet 11/27/20: Monitor ABG Monitor closely 11/28/2020: Vapotherm and BiPAP Monitor closely 11/29/2020: Slow recovery Guarded prognosis Still at risk for intubation 12/08/2020: Supportive care Updated family Guarded prognosis 12/09/2020: Monitor closely Prognosis guarded 12/10/2020: Atrial fibrillation with rapid ventricular response management Prognosis guarded 12/11/2020: Supportive care DNR Poor prognosis Critical Care Ventilator Management CARISSA MARTINS DO Dec 11, 2020 10:56
[2020-12-11 13:33] VITALS: BP 119/60
[2020-12-11] MEDS: PHENYLEPHRINE INJECTION 40 MG in NS (IVPB) 250 ML IV SCH ×2 (17:24→23:22)
[2020-12-11] MEDS: NOREPINEPHRINE 8 MG/250 ML 250 ML IV SCH (17:34)
[2020-12-11 18:54] VITALS: BP 130/56
[2020-12-11] MEDS: MELATONIN 3 MG TABLET PO SCH (21:12)
[2020-12-11 21:35] VITALS: BP 151/58
[2020-12-12] MEDS: inSUlin ASPART (NovoLOG) 1 UNIT/0.01 ML (CHARGE PER UNIT) SC SCH ×4 (00:09→17:38)
[2020-12-12] MEDS: CISATRACURIUM DRIP 250 ML IV SCH ×4 (00:54→19:38)
[2020-12-12] MEDS: PROPOFOL DRIP (ICU) 100 ML IV SCH ×2 (00:55→06:25)
[2020-12-12 01:44] VITALS: BP 130/59
[2020-12-12] MEDS: RT-ALBUTEROL HFA 8.5 GM INHALER IH SCH ×6 (01:44→22:45)
[2020-12-12] MEDS: fentaNYL DRIP PRE-MIX 250 ML IV SCH ×5 (02:13→20:32)
[2020-12-12 02:36] LABS: BASOPHILS # (AUTO) 0.1 10^3/uL (0.0-0.1); BASOPHILS % (AUTO) 0 % (0-10); EOSINOPHILS # (AUTO) 0.1 10^3/uL (0.0-0.3); EOSINOPHILS % (AUTO) 1 % (0-10); HEMATOCRIT 36 % (40-54); MEAN CORPUSCULAR VOLUME 90 fL (80-99)
[2020-12-12 02:38] LABS: ABG BASE EXCESS -0.3 MMOL/L (-2.5-2.5); ABG OXYGEN SATURATION 94 % (94-100); ABG PH 7.16 (7.37-7.43); ABG PO2 66 MMHG (79-93); ABG TCO2 30.4 MMOL/L (21.0-31.0)
[2020-12-12 02:38] LABS: HEMOGLOBIN 11.3 g/dL (13.3-17.7); LYMPHOCYTES # (AUTO) 0.6 10^3/uL (1.0-4.0); LYMPHOCYTES % (AUTO) 4 % (12-44); MEAN CORPUSCULAR HEMOGLOBIN 29 pg (25-34); MEAN CORPUSCULAR HGB CONC 32 g/dL (32-36); MEAN PLATELET VOLUME 10.5 fL (9.0-12.2); MONOCYTES # (AUTO) 0.7 10^3/uL (0.0-1.0); MONOCYTES % (AUTO) 4 % (0-12); NEUTROPHILS # (AUTO) 15.9 10^3/uL (1.8-7.8); NEUTROPHILS % (AUTO) 90 % (42-75); PLATELET COUNT 95 10^3/uL (130-400); WHITE BLOOD COUNT 17.7 10^3/uL (4.3-11.0)
[2020-12-12 02:39] LABS: ABG PCO2 81 MMHG (35-45)
[2020-12-12 02:40] LABS: ALLENS TEST ART LINE; INSPIRED O2 100%; PATIENT TEMP 36.3; VENTILATOR YES
[2020-12-12 02:54] LABS: POTASSIUM 3.4 MMOL/L (3.6-5.0)
[2020-12-12 02:57] LABS: CALCIUM 5.4 MG/DL (8.5-10.1)
[2020-12-12 03:00] LABS: CREATININE SERUM 2.41 MG/DL (0.60-1.30); PHOSPHORUS 4.1 MG/DL (2.3-4.7)
[2020-12-12 03:02] LABS: FIBRIN DEGRADATION PRODUCTS 4.89 UG/ML (0.00-0.49); INR 1.1 (0.8-1.4); MAGNESIUM 1.8 MG/DL (1.6-2.4); PROTHROMBIN TIME PATIENT 14.1 SEC (12.2-14.7)
[2020-12-12] MEDS: KCL 20 MEQ TAB (K-DUR) PO SCH (03:43)
[2020-12-12] MEDS: POTASSIUM CL 10MEQ/50ML IVPB 50 ML IV SCH ×3 (03:43→06:10)
[2020-12-12] MEDS: MAGNESIUM 1 GM/100 ML IVPB 100 ML IV SCH (03:43)
[2020-12-12] MEDS: MEROPENEM 500 MG/SWFI 10 ML IV PUSH IV SCH ×6 (06:11→19:36)
[2020-12-12] MEDS: HYDROCORTISONE 100 MG/2 ML (Solu-CORTEF) VIAL IV SCH ×3 (06:11→20:33)
[2020-12-12] MEDS: DexMEDEtomidine 250 ML DRIP 250 ML IV SCH (06:16)
[2020-12-12 06:30] VITALS: BP 119/48
[2020-12-12] MEDS: SODIUM BICARBONATE 8.4% VIAL 150 MEQ in D5W 1000 ML IV SOLUTION 1,000 ML IV SCH ×3 (06:40→19:33)
--- NOTE | 2020-12-12 06:54 | Occ Therapy Progress Note ---
Therapy Progress Note Pt is currently intubated. OT will continue to monitor pt and initiate therapy when pt is more medically stable and able to actively participate in skilled therapy. DEXTER HAWK Dec 12, 2020 06:53
--- NOTE | 2020-12-12 07:37 | Physical Therapy Progress Note ---
Therapy Progress Note Patient remains sedated and intubated. PT will continue to monitor patient status. ANU RAMOS PT Dec 12, 2020 07:37
[2020-12-12] MEDS: LINEZOLID IVPB 300 ML IV SCH ×2 (07:44→19:36)
[2020-12-12] MEDS: polyethylene glycoL POWDER 17 GM (MIRALAX) PACK PO SCH ×2 (07:44→19:36)
[2020-12-12] MEDS: SENNA W/DOCUSATE (SENOKOT S) TABLET PO SCH ×2 (07:44→19:36)
[2020-12-12] MEDS: PANTOPRAZOLE 40 MG (PROTONIX) VIAL IV SCH (07:44)
[2020-12-12] MEDS: MICONAZOLE 2% POWDER (DESENEX AF) 90 GM TOP SCH ×2 (08:04→19:37)
[2020-12-12] MEDS: LACRI-LUBE OPTHALMIC OINT 3.5 GM TUBE OU SCH ×3 (08:04→19:37)
[2020-12-12] MEDS: NYSTATIN CREAM (MYCOSTATIN) 30 GM TUBE TP SCH ×3 (08:05→19:37)
[2020-12-12] MEDS: ENOXAPARIN 100 MG/1 ML (LOVENOX) SYR SC SCH ×2 (08:55→20:37)
[2020-12-12] MEDS ORDERED: FUROSEMIDE INJECTION 120 MG in D5W 100 ML IVPB 108 ML IV SCH (09:00)
--- NOTE | 2020-12-12 09:11 | Tele-ICU Progress Note ---
Subjective Date Seen by a Provider: Dec 12, 2020 Time Seen by a Provider: 09:11 Sepsis Event Evaluation Height, Weight, BMI Height: '" Weight: lbs. oz. kg; 34.90 BMI Method: Exam Exam Patient acknowledged, consented, and participated in this virtual visit which was conducted using real time audio/video Vital Signs Date Time Temp Pulse Resp B/P (MAP) Pulse Ox O2 Delivery O2 Flow Rate FiO2 12/12/20 08:00 36.2 83 92 Mechanical Ventilator 100.00 12/12/20 07:00 36.3 77 90 Mechanical Ventilator 100.00 12/12/20 06:30 75 34 90 100 12/12/20 06:25 68 177/63 12/12/20 06:16 64 183/66 12/12/20 05:00 36.3 71 34 91 Mechanical Ventilator 100.00 12/12/20 05:00 36.3 71 33 92 Mechanical Ventilator 100.00 12/12/20 04:05 72 144/55 12/12/20 04:00 36.4 73 33 93 Mechanical Ventilator 100.00 12/12/20 04:00 92 Mechanical Ventilator 100 12/12/20 03:00 36.3 70 34 92 Mechanical Ventilator 100.00 12/12/20 02:00 36.3 74 33 90 Mechanical Ventilator 100.00 12/12/20 01:44 80 34 90 90 12/12/20 01:00 36.3 80 92 Mechanical Ventilator 100.00 12/12/20 01:00 80 12/12/20 00:55 83 197/72 12/12/20 00:00 36.3 80 13 94 Mechanical Ventilator 100.00 12/11/20 23:59 94 Mechanical Ventilator 100 12/11/20 23:22 80 124/74 12/11/20 23:00 36.4 80 34 93 Mechanical Ventilator 100.00 12/11/20 22:00 36.5 81 33 93 Mechanical Ventilator 100.00 12/11/20 21:35 82 34 93 90 12/11/20 21:16 85 160/63 12/11/20 21:00 36.7 84 33 93 Mechanical Ventilator 100.00 12/11/20 20:00 36.8 84 34 93 Mechanical Ventilator 100.00 12/11/20 20:00 93 Mechanical Ventilator 100 12/11/20 19:00 36.9 81 32 93 Mechanical Ventilator 100.00 12/11/20 19:00 81 12/11/20 18:54 80 34 93 90 12/11/20 18:00 36.9 81 92 Mechanical Ventilator 100.00 12/11/20 17:34 81 115/51 12/11/20 17:33 80 113/52 12/11/20 17:24 87 129/59 12/11/20 17:00 36.9 83 92 Mechanical Ventilator 100.00 12/11/20 16:21 97 Mechanical Ventilator 100 12/11/20 16:00 36.9 87 94 Mechanical Ventilator 100.00 12/11/20 15:00 36.8 87 94 Mechanical Ventilator 100.00 12/11/20 14:57 87 129/59 12/11/20 14:00 36.7 91 95 Mechanical Ventilator 100.00 12/11/20 13:33 96 35 92 90 12/11/20 13:12 93 116/58 12/11/20 13:00 36.8 95 95 Mechanical Ventilator 100.00 12/11/20 13:00 95 12/11/20 12:35 97 Mechanical Ventilator 100 12/11/20 12:32 93 116/58 12/11/20 12:00 92 94 Mechanical Ventilator 100.00 12/11/20 11:51 36.7 12/11/20 11:00 90 94 Mechanical Ventilator 100.00 12/11/20 10:36 89 116/57 12/11/20 10:00 88 94 Mechanical Ventilator 100.00 12/11/20 09:28 90 34 95 90 I & O 12/12/20 07:00 Intake Total 4954 ml Output Total 1400 ml Balance 3554 ml Height & Weight Height: '" Weight: lbs. oz. kg; 34.90 BMI Method: General Appearance: Chronically ill, Other (Intubated and sedated) HEENT: PERRL/EOMI, Normal ENT Inspection, Pharynx Normal, Moist Mucous Membranes Neck: Full Range of Motion, Normal Inspection, Non Tender Respiratory: Decreased Breath Sounds Cardiovascular: Regular Rate, Rhythm Capillary Refill: Less Than 3 Seconds Gastrointestinal: normal bowel sounds, non tender, soft (has midlinte) Extremity: Normal Inspection, Non Tender, No Pedal Edema, Other (has left midline, site ok) Neurologic/Psychiatric: Alert, Oriented x3 Skin: Normal Color, Warm/Dry Lymphatic: No Adenopathy Results Lab Laboratory Tests 12/11/20 02:45 12/12/20 02:20 Assessment/Plan Assessment/Plan (Tele-ICU Physician , Progress Note ) Available chart/ vitals / labs / Images reviewed Video assessment done using teleICU camera, rest of exam as per RN Discussed with RN Events overnight : - increased Fio2 to 100 % Afebrile I/O = pos 3 L Drips: bicarb nimbex Pressors: Roland 150 and levophed on - off Sedation gtt: ( RASS ) propofol precedex fentanyl VENT SETTINGS. 400 - 34-+12 100%. PAP 55 ABG reviewed Not candidate for SBT today Contraindications: Cardiovascular Stability / Sedation Score / FI02/PEEP / ABG / CXR EXAM PER RN Consultants: Hospital course: 11/26 from ER with hypotension 80/50 and 86% RA ( covid ) 11/27 - DID NOT TOLERATED VAPOTHERM, ON BIAPAP 11/28 - 30L 100% vapotherm + BIPAP prn 11/29 - bipap 15/02 65% rr22 tv 600 MV 13L 12/02 vapotherm 40L 100% (/) INTUBATED (12/07) Sedated/paralyzed, WBC up, ?bacterial PNA. On ABX (12/08) BEBETO 12/11 100%. PAP 55 peep 12 A/P Acute hypoxic resp failure with COVID PNA , no PE on CT 11/23 and 11/26 - Intubated , paralyzed , 400 - 340 +16 100%. PAP 50 ( no PTX i on CXR ) - decreased TV will accept worsenign acidosis with very elevared PAP and plateau - can try gentle diuresis -not PRONED - not tolerating - keep supine now FNLK-Gcxnbvvnkio-1/COVID-19 infection- ( symptoms11/16 , Dx 11/20 ) -Remdesivir finished -Steroids IV - finished -Hypercoagulable state , DDIMER 3.7 on 11/26 -> lovenox ppx dose - 11/30 d dimer 11 ->lovenox 100 q 12 ( no evidence of large PE on CT 11/23 and 11/26 ) - ACTEMRA 12/02 Shock - with infection and acidosis - will start on stress dose steroids 12/10 - to wean off pressors A FIB RVR 12/10 - no respond to adenosisne - amio gtt started - converted in few hours - given shock will stoppamio 12/11- today - ac with full dose lovenox already superimposed bact PNA -PCT 0.16, CEFEPIME AND Z MAX STARTED 11/26 - finished 5 day course = meropenam BEBETO- WORSENIGN despite agressive hydration , on bicarb gtt -WILL TRY TO ADD LASIX GTT TO HKEEP FROM WORSENINIG VOLUME OVERLOAD - follow abg . monitor Severe met acidosis and mild respo acodosis - can not increase MV with PAP > 55, follow closely - cont bicarb gtt Thrombocytopenia - worsening , fibrinogen 360 - bleefing in ETT / mouth - will HOLD lovenox ELV TGL - try to stop propofol Lines : PICC (Central Line Necessity Reviewed) Gaston: + OG: + Nutrition: cont TF Analgesia: na Anxiety/ delirium na VTE Prophylaxis: lovenox 100 bid - on HOLD Stress Ulcer Prophylaxis: PPI Glycemic Control: OK DNR now PROGNOSIS POOR Plans in collaboration with bedside consultants and IM MDs. Discussed with RN to reach out if any questions or concerns A total of 40 minutes of critical care time was devoted to this patient today, required to treat and/or prevent further deterioration of critical care condition ( as above KAYE PEDERSEN MD Dec 12, 2020 09:11
[2020-12-12 10:11] VITALS: BP 117/51
[2020-12-12] MEDS: NOREPINEPHRINE 8 MG/250 ML 250 ML IV SCH (10:28)
[2020-12-12] MEDS: MIDAZOLAM DRIP PRE-MIX 100 ML IV SCH (11:05)
[2020-12-12] MEDS: FUROSEMIDE INJECTION 120 MG in D5W 100 ML IVPB 100 ML IV SCH ×2 (11:08→19:35)
--- NOTE | 2020-12-12 12:10 | Progress Note - Hospitalist ---
Subjective HPI/CC On Admission Date Seen by Provider: Dec 12, 2020 Time Seen by Provider: 11:00 Chief complaint: COVID-19 pneumonia with sepsis History present illness: This is a 60-year-old white male who was diagnosed with Covid 9 days ago who presented to the ER with shortness of breath fever and lethargy. Patient was found to have hypotension responded to aggressive IV fluids and placed on BiPAP for hypoxia. Currently it is difficult to communicate due to BiPAP. We will initiate IV antibiotics and closely monitor since he is high risk for decompensation. Subjective/Events-last exam Pt now on a Lasix drip Roland maintains BP Overall prognosis becomes more and more poor Updated by JESUS Carty and she had no changes to make Patient remains a DNR Objective Exam Vital Signs Vital Signs Date Time Temp Pulse Resp B/P (MAP) Pulse Ox O2 Delivery O2 Flow Rate FiO2 12/13/20 04:00 93 Mechanical Ventilator 100 12/13/20 02:34 135/56 12/13/20 01:33 87 34 12/13/20 01:00 36.6 100.00 Capillary Refill : Less Than 3 Seconds General Appearance: No Apparent Distress, WD/WN, Chronically ill, Obese, Other (Intubated and sedated) Respiratory: No Accessory Muscle Use, No Respiratory Distress, Decreased Breath Sounds Cardiovascular: Regular Rate, Rhythm Results/Procedures Lab Laboratory Tests 12/13/20 03:30 Patient resulted labs reviewed. Imaging: Reviewed Imaging Report Assessment/Plan Assessment and Plan Assess & Plan/Chief Complaint Assessment: Acute hypoxic respiratory failure COVID-19 pneumonia New onset atrial fibrillation with rapid ventricular response Hypotension requiring pressor therapy Sepsis Bacterial pneumonia Hypothyroidism DJD Plan: BiPAP Supportive care Monitor closely 12/07/2020: Maintain intubation [place] has a bed bit not stable yet 11/27/20: Monitor ABG Monitor closely 11/28/2020: Vapotherm and BiPAP Monitor closely 11/29/2020: Slow recovery Guarded prognosis Still at risk for intubation 12/08/2020: Supportive care Updated family Guarded prognosis 12/09/2020: Monitor closely Prognosis guarded 12/10/2020: Atrial fibrillation with rapid ventricular response management Prognosis guarded 12/11/2020: Supportive care DNR Poor prognosis 12/12/2020: Supportive care Needs comfort care and terminal extubation Critical Care Ventilator Management CARISSA MARTINS DO Dec 12, 2020 12:10
[2020-12-12] MEDS: PHENYLEPHRINE INJECTION 40 MG in NS (IVPB) 250 ML IV SCH (13:41)
[2020-12-12 14:11] VITALS: BP 94/51
[2020-12-12 18:56] VITALS: BP 140/56
[2020-12-12] MEDS: MELATONIN 3 MG TABLET PO SCH (20:31)
[2020-12-12 21:18] LABS: ABG BASE EXCESS 1.9 MMOL/L (-2.5-2.5); ABG OXYGEN SATURATION 89 % (94-100); ABG PO2 55 MMHG (79-93); ABG TCO2 31.5 MMOL/L (21.0-31.0); ALLENS TEST ARTLINE; INSPIRED O2 100; PATIENT TEMP 36.5; VENTILATOR YES
[2020-12-12 21:19] LABS: ABG PH 7.21 (7.37-7.43)
[2020-12-12 21:20] LABS: ABG PCO2 74 MMHG (35-45)
--- NOTE | 2020-12-12 21:43 | Diagnostic Imaging Report ---
INDICATION: Hypoxia, Covid positive. EXAMINATION: Frontal chest was obtained at 9:12 p.m. COMPARISON: 12/11/2020. ET tube is seen with tip overlying the mid trachea. NG tube is not well seen. Right-sided PICC line is unchanged. There is worsening infiltrate throughout both lungs with very poor aeration of both lungs. There is no pneumothorax. IMPRESSION: Severe bilateral infiltrates are present which are worsened compared to yesterday. Life support lines as above. Dictated by: Dictated on workstation # [id number]
[2020-12-12 22:45] VITALS: BP 144/53
[2020-12-13] MEDS: NOREPINEPHRINE 8 MG/250 ML 250 ML IV SCH ×2 (00:30→15:34)
[2020-12-13] MEDS: fentaNYL DRIP PRE-MIX 250 ML IV SCH ×5 (01:03→20:17)
[2020-12-13] MEDS: MIDAZOLAM DRIP PRE-MIX 100 ML IV SCH ×2 (01:04→18:37)
[2020-12-13 01:33] VITALS: BP 132/57
[2020-12-13] MEDS: RT-ALBUTEROL HFA 8.5 GM INHALER IH SCH ×6 (01:33→22:13)
[2020-12-13] MEDS: FUROSEMIDE INJECTION 120 MG in D5W 100 ML IVPB 100 ML IV SCH ×2 (01:57→20:24)
[2020-12-13] MEDS: DexMEDEtomidine 250 ML DRIP 250 ML IV SCH ×2 (02:34→22:19)
[2020-12-13] MEDS: CISATRACURIUM DRIP 250 ML IV SCH ×4 (02:42→20:50)
[2020-12-13 03:39] LABS: BASOPHILS % (AUTO) 0 % (0-10); EOSINOPHILS # (AUTO) 0.1 10^3/uL (0.0-0.3); EOSINOPHILS % (AUTO) 1 % (0-10)
[2020-12-13 03:41] LABS: HEMATOCRIT 35 % (40-54); HEMOGLOBIN 10.8 g/dL (13.3-17.7); LYMPHOCYTES # (AUTO) 0.5 10^3/uL (1.0-4.0); LYMPHOCYTES % (AUTO) 3 % (12-44); MEAN CORPUSCULAR HEMOGLOBIN 28 pg (25-34); MEAN CORPUSCULAR HGB CONC 31 g/dL (32-36); MEAN CORPUSCULAR VOLUME 90 fL (80-99); MEAN PLATELET VOLUME 10.5 fL (9.0-12.2); MONOCYTES # (AUTO) 0.9 10^3/uL (0.0-1.0); MONOCYTES % (AUTO) 6 % (0-12); NEUTROPHILS # (AUTO) 14.4 10^3/uL (1.8-7.8); NEUTROPHILS % (AUTO) 89 % (42-75); PLATELET COUNT 98 10^3/uL (130-400); WHITE BLOOD COUNT 16.2 10^3/uL (4.3-11.0)
[2020-12-13 03:49] LABS: POTASSIUM 3.8 MMOL/L (3.6-5.0)
[2020-12-13 03:54] LABS: PHOSPHORUS 4.6 MG/DL (2.3-4.7)
[2020-12-13 03:57] LABS: MAGNESIUM 2.2 MG/DL (1.6-2.4)
[2020-12-13 04:00] LABS: CREATININE SERUM 3.08 MG/DL (0.60-1.30)
[2020-12-13 04:23] LABS: ABG BASE EXCESS 2.6 MMOL/L (-2.5-2.5); ABG OXYGEN SATURATION 96 % (94-100); ABG PO2 77 MMHG (79-93)
[2020-12-13 04:24] LABS: ALLENS TEST ARTLINE; INSPIRED O2 100; PATIENT TEMP 36.4; VENTILATOR YES
[2020-12-13 04:25] LABS: ABG PCO2 83 MMHG (35-45); ABG PH 7.18 (7.37-7.43)
[2020-12-13] MEDS: POTASSIUM CL 10MEQ/50ML IVPB 50 ML IV SCH (04:51)
[2020-12-13] MEDS: KCL 20 MEQ TAB (K-DUR) PO SCH (04:51)
[2020-12-13] MEDS: MAGNESIUM 1 GM/100 ML IVPB 100 ML IV SCH (04:51)
[2020-12-13] MEDS: inSUlin ASPART (NovoLOG) 1 UNIT/0.01 ML (CHARGE PER UNIT) SC SCH ×5 (04:51→23:22)
[2020-12-13] MEDS: MEROPENEM 500 MG/SWFI 10 ML IV PUSH IV SCH ×6 (05:22→19:53)
[2020-12-13] MEDS: HYDROCORTISONE 100 MG/2 ML (Solu-CORTEF) VIAL IV SCH ×3 (05:31→20:26)
--- NOTE | 2020-12-13 07:00 | Occ Therapy Progress Note ---
Therapy Progress Note Pt is currently intubated. OT will continue to monitor pt and initiate therapy when pt is more medically stable and able to actively participate in skilled therapy. DEXTER HAWK Dec 13, 2020 07:00
[2020-12-13 07:04] VITALS: BP 122/56
--- NOTE | 2020-12-13 07:57 | Physical Therapy Progress Note ---
Therapy Progress Note Patient remains intubated. PT will continue to monitor patient status. ANU RAMOS PT Dec 13, 2020 07:57
[2020-12-13] MEDS: polyethylene glycoL POWDER 17 GM (MIRALAX) PACK PO SCH ×2 (07:58→20:02)
[2020-12-13] MEDS: SENNA W/DOCUSATE (SENOKOT S) TABLET PO SCH ×2 (07:58→20:02)
[2020-12-13] MEDS: PANTOPRAZOLE 40 MG (PROTONIX) VIAL IV SCH (07:58)
[2020-12-13] MEDS: LINEZOLID IVPB 300 ML IV SCH (07:58)
[2020-12-13] MEDS: LACRI-LUBE OPTHALMIC OINT 3.5 GM TUBE OU SCH ×3 (08:13→19:59)
[2020-12-13] MEDS: NYSTATIN CREAM (MYCOSTATIN) 30 GM TUBE TP SCH ×3 (08:14→20:02)
[2020-12-13] MEDS: MICONAZOLE 2% POWDER (DESENEX AF) 90 GM TOP SCH ×2 (08:14→20:01)
[2020-12-13] MEDS: PROPOFOL DRIP (ICU) 100 ML IV SCH (08:26)
[2020-12-13] MEDS: ENOXAPARIN 100 MG/1 ML (LOVENOX) SYR SC SCH (09:46)
[2020-12-13 10:17] VITALS: BP 106/54
--- NOTE | 2020-12-13 11:18 | Tele-ICU Progress Note ---
Subjective Date Seen by a Provider: Dec 13, 2020 Time Seen by a Provider: 09:50 Subjective/Events-last exam This virtual visit was conducted using real time audio/video. Thank you for asking us to see this patient for respiratory insufficiency and distress due to Covid pna with need for mechanical ventilation.. HPC: Recent events: Desaturated overnight with turning. FiO2 100%/+12 now. ROS: limited by patient's clinical condition PE: Obese, appears comfortable. Sedated. VSS O2 94% sat on 100%/+12 HEENT: No obvious masses, adenopathy or JVD. Chest: Coarse BS. CV: RRR S1 S2 No murmur or added sounds. Abd: Non-tender. Bowel sounds Y . : Unremarkable. Gaston N. EXPORT AGENT/psychiatric: No obvious focal findings. Extremities: edema wwith weeping. Capillary refill < 3 seconds. Results: Elevated BUN 39, Creat 3.08.. Decreased plts 98K, Alb 1.7. 7.18//77. A/P: Respiratory failure with acidosis, permissive hypercapnia: Wean FiO2 as umang. Available chart/ vitals / labs / images reviewed. Video assessment done using teleICU camera, rest of exam as per RN. Monitor for increasing oxygenation needs. Critical Care: critically ill patient. May need transfer to OSH for HD. Lovenox held due to BEBETO. Discussed with RN Angella. Asked RN to reach out to eICU if any questions or concerns later. Time spent with patient/coordination of care with other health professionals (mins): 25. Sepsis Event Evaluation Height, Weight, BMI Height: '" Weight: lbs. oz. kg; 34.90 BMI Method: Exam Exam Patient acknowledged, consented, and participated in this virtual visit which was conducted using real time audio/video Vital Signs Date Time Temp Pulse Resp B/P (MAP) Pulse Ox O2 Delivery O2 Flow Rate FiO2 12/13/20 10:17 98 34 97 100 12/13/20 10:00 97 97 Mechanical Ventilator 100.00 12/13/20 09:00 73 16 89 Mechanical Ventilator 100.00 12/13/20 08:00 87 22 92 Mechanical Ventilator 100.00 12/13/20 07:04 85 34 91 100 12/13/20 07:00 84 33 92 Mechanical Ventilator 100.00 12/13/20 07:00 89 12/13/20 06:00 36.4 89 33 93 Mechanical Ventilator 100.00 12/13/20 05:00 36.4 91 34 94 Mechanical Ventilator 100.00 12/13/20 04:00 36.5 90 33 93 Mechanical Ventilator 100.00 12/13/20 04:00 93 Mechanical Ventilator 100 12/13/20 03:00 36.6 84 33 93 Mechanical Ventilator 100.00 12/13/20 02:34 135/56 12/13/20 02:00 36.6 84 34 94 Mechanical Ventilator 100.00 12/13/20 01:33 87 34 95 100 12/13/20 01:04 113/54 12/13/20 01:00 36.6 88 33 93 Mechanical Ventilator 100.00 12/13/20 01:00 88 12/13/20 00:30 194/69 12/13/20 00:00 36.7 80 33 93 Mechanical Ventilator 100.00 12/12/20 23:59 90 Mechanical Ventilator 100 12/12/20 23:00 36.6 82 33 93 Mechanical Ventilator 100.00 12/12/20 22:45 77 34 94 100 12/12/20 22:00 36.6 81 33 94 Mechanical Ventilator 100.00 12/12/20 21:00 36.6 75 34 93 Mechanical Ventilator 100.00 12/12/20 20:00 86 Mechanical Ventilator 100 12/12/20 20:00 36.5 84 27 90 Mechanical Ventilator 100.00 12/12/20 19:00 79 12/12/20 19:00 36.4 79 33 92 Mechanical Ventilator 100.00 12/12/20 18:56 76 34 93 95 12/12/20 18:00 36.2 82 33 94 Mechanical Ventilator 100.00 12/12/20 17:00 36.2 81 33 95 Mechanical Ventilator 100.00 12/12/20 16:00 36.1 84 17 95 Mechanical Ventilator 100.00 12/12/20 15:20 95 Mechanical Ventilator 95 12/12/20 15:00 36.1 84 17 94 Mechanical Ventilator 100.00 12/12/20 14:11 81 34 95 95 12/12/20 14:00 36.1 89 17 95 Mechanical Ventilator 100.00 12/12/20 13:41 87 103/49 12/12/20 13:00 36.2 89 27 93 Mechanical Ventilator 100.00 12/12/20 12:34 87 12/12/20 12:00 36.1 89 34 93 Mechanical Ventilator 100.00 12/12/20 11:19 93 Mechanical Ventilator 100 I & O 12/13/20 07:00 Intake Total 5864 ml Output Total 1205 ml Balance 4659 ml Height & Weight Height: '" Weight: lbs. oz. kg; 34.90 BMI Method: General Appearance: No Apparent Distress, WD/WN, Chronically ill, Obese, Other (Intubated and sedated) HEENT: PERRL/EOMI, Normal ENT Inspection, Pharynx Normal, Moist Mucous Membranes Neck: Full Range of Motion, Normal Inspection, Non Tender Respiratory: No Accessory Muscle Use, No Respiratory Distress, Decreased Breath Sounds Cardiovascular: Regular Rate, Rhythm Capillary Refill: Less Than 3 Seconds Peripheral Pulses: 1+ Dorsalis Pedis (R), 1+ Left Dors-Pedis (L) (see free text) Gastrointestinal: normal bowel sounds, non tender, soft (has midlinte) Extremity: Normal Inspection, Non Tender, No Pedal Edema, Other (has left midline, site ok) Neurologic/Psychiatric: Alert, Oriented x3 Skin: Normal Color, Warm/Dry Lymphatic: No Adenopathy Results Lab Laboratory Tests 12/12/20 02:20 12/13/20 03:30 Assessment/Plan Assessment/Plan See free text Critical Care: Ventilator Management Time spent on discussion(mins): 0 Diagnosis/Problems Diagnosis/Problems (1) Obesity Status: Chronic (2) Pneumonia due to COVID-19 virus Status: Acute (3) Acute respiratory failure due to COVID-19 Status: Acute ARMOND MOODY MD Dec 13, 2020 11:18
--- NOTE | 2020-12-13 12:42 | Progress Note - Hospitalist ---
Subjective HPI/CC On Admission Date Seen by Provider: Dec 13, 2020 Time Seen by Provider: 12:00 Chief complaint: COVID-19 pneumonia with sepsis History present illness: This is a 60-year-old white male who was diagnosed with Covid 9 days ago who presented to the ER with shortness of breath fever and lethargy. Patient was found to have hypotension responded to aggressive IV fluids and placed on BiPAP for hypoxia. Currently it is difficult to communicate due to BiPAP. We will initiate IV antibiotics and closely monitor since he is high risk for decompensation. Subjective/Events-last exam Creatinine 3.0 Albumin 1.7 Weeping all over his skin Bowels moved today and oxygen went down to 44% Ethics committee will be consulted, I talked to the family multiple times but does not seem to acknowledge the end stage process. I would recommend terminal extubation. Objective Exam Vital Signs Vital Signs Date Time Temp Pulse Resp B/P (MAP) Pulse Ox O2 Delivery O2 Flow Rate FiO2 12/14/20 04:55 81 12/14/20 04:00 96 Mechanical Ventilator 100 12/14/20 04:00 36.1 100.00 12/14/20 02:07 34 12/13/20 23:00 Capillary Refill : Less Than 3 Seconds General Appearance: No Apparent Distress, Chronically ill, Other (Intubated and sedated) Respiratory: Decreased Breath Sounds Results/Procedures Lab Laboratory Tests 12/13/20 15:30 12/13/20 20:45 12/13/20 23:59 12/14/20 03:38 Patient resulted labs reviewed. Imaging: Reviewed Imaging Report Assessment/Plan Assessment and Plan Assess & Plan/Chief Complaint Assessment: Acute hypoxic respiratory failure COVID-19 pneumonia New onset atrial fibrillation with rapid ventricular response Hypotension requiring pressor therapy Sepsis Bacterial pneumonia Hypothyroidism DJD Plan: BiPAP Supportive care Monitor closely 12/07/2020: Maintain intubation [place] has a bed bit not stable yet 11/27/20: Monitor ABG Monitor closely 11/28/2020: Vapotherm and BiPAP Monitor closely 11/29/2020: Slow recovery Guarded prognosis Still at risk for intubation 12/08/2020: Supportive care Updated family Guarded prognosis 12/09/2020: Monitor closely Prognosis guarded 12/10/2020: Atrial fibrillation with rapid ventricular response management Prognosis guarded 12/11/2020: Supportive care DNR Poor prognosis 12/12/2020: Supportive care Needs comfort care and terminal extubation 12/13/2020: Ethics committee consult Terminal condition Critical Care Ventilator Management CARISSA MARTINS DO Dec 13, 2020 12:42
[2020-12-13] MEDS: SODIUM BICARBONATE 8.4% VIAL 150 MEQ in D5W 1000 ML IV SOLUTION 1,000 ML IV SCH (13:46)
[2020-12-13 14:33] VITALS: BP 132/60
[2020-12-13 16:06] LABS: POTASSIUM 3.9 MMOL/L (3.6-5.0)
[2020-12-13 16:07] LABS: CALCIUM 6.1 MG/DL (8.5-10.1)
[2020-12-13 16:11] LABS: CREATININE SERUM 3.32 MG/DL (0.60-1.30)
[2020-12-13 18:42] VITALS: BP 111/61
[2020-12-13] MEDS: MELATONIN 3 MG TABLET PO SCH (20:02)
[2020-12-13 21:06] LABS: CALCIUM 6.1 MG/DL (8.5-10.1); CREATININE SERUM 3.34 MG/DL (0.60-1.30); POTASSIUM 3.9 MMOL/L (3.6-5.0)
[2020-12-13 22:13] VITALS: BP 117/58
[2020-12-14 00:35] LABS: CALCIUM 6.1 MG/DL (8.5-10.1); CREATININE SERUM 3.37 MG/DL (0.60-1.30); POTASSIUM 3.9 MMOL/L (3.6-5.0)
[2020-12-14] MEDS: fentaNYL DRIP PRE-MIX 250 ML IV SCH ×5 (01:15→19:46)
[2020-12-14 02:07] VITALS: BP 124/57
[2020-12-14] MEDS: RT-ALBUTEROL HFA 8.5 GM INHALER IH SCH ×6 (02:07→22:28)
[2020-12-14 03:52] LABS: BASOPHILS % (AUTO) 0 % (0-10); MEAN CORPUSCULAR VOLUME 92 fL (80-99)
[2020-12-14 03:54] LABS: EOSINOPHILS # (AUTO) 0.1 10^3/uL (0.0-0.3); EOSINOPHILS % (AUTO) 0 % (0-10); HEMATOCRIT 33 % (40-54); LYMPHOCYTES # (AUTO) 0.5 10^3/uL (1.0-4.0); LYMPHOCYTES % (AUTO) 3 % (12-44); MEAN CORPUSCULAR HEMOGLOBIN 28 pg (25-34); MEAN CORPUSCULAR HGB CONC 31 g/dL (32-36); MEAN PLATELET VOLUME 10.3 fL (9.0-12.2); MONOCYTES % (AUTO) 6 % (0-12); NEUTROPHILS # (AUTO) 15.9 10^3/uL (1.8-7.8); NEUTROPHILS % (AUTO) 89 % (42-75); PLATELET COUNT 84 10^3/uL (130-400); WHITE BLOOD COUNT 17.8 10^3/uL (4.3-11.0)
[2020-12-14 04:06] LABS: POTASSIUM 3.9 MMOL/L (3.6-5.0)
[2020-12-14 04:12] LABS: CREATININE SERUM 3.4 MG/DL (0.60-1.30)
[2020-12-14 04:30] LABS: ABG BASE EXCESS 2.5 MMOL/L (-2.5-2.5); ABG OXYGEN SATURATION 98 % (94-100); ABG PO2 97 MMHG (79-93)
[2020-12-14 04:31] LABS: ALLENS TEST ARTLINE; INSPIRED O2 100%; VENTILATOR YES
[2020-12-14 04:32] LABS: ABG PCO2 86 MMHG (35-45); ABG PH 7.17 (7.37-7.43)
[2020-12-14] MEDS: NOREPINEPHRINE 8 MG/250 ML 250 ML IV SCH ×2 (04:55→18:31)
[2020-12-14] MEDS: MEROPENEM 500 MG/SWFI 10 ML IV PUSH IV SCH ×6 (04:56→19:29)
[2020-12-14] MEDS: SODIUM BICARBONATE 8.4% VIAL 150 MEQ in D5W 1000 ML IV SOLUTION 1,000 ML IV SCH ×2 (04:56→18:08)
[2020-12-14] MEDS: POTASSIUM CL 10MEQ/50ML IVPB 50 ML IV SCH (04:57)
[2020-12-14] MEDS: KCL 20 MEQ TAB (K-DUR) PO SCH (04:57)
[2020-12-14] MEDS: inSUlin ASPART (NovoLOG) 1 UNIT/0.01 ML (CHARGE PER UNIT) SC SCH ×3 (04:57→18:08)
[2020-12-14] MEDS: MAGNESIUM 1 GM/100 ML IVPB 100 ML IV SCH (04:57)
[2020-12-14] MEDS: HYDROCORTISONE 100 MG/2 ML (Solu-CORTEF) VIAL IV SCH ×3 (04:58→21:28)
[2020-12-14 06:28] VITALS: BP 107/52
--- NOTE | 2020-12-14 06:55 | Occ Therapy Progress Note ---
Therapy Progress Note Pt is currently intubated. OT will continue to monitor pt and initiate therapy when pt is more medically stable and able to actively participate in skilled therapy. DEXTER HAWK Dec 14, 2020 06:55
--- NOTE | 2020-12-14 07:49 | Physical Therapy Progress Note ---
Therapy Progress Note Patient remains intubated. PT will continue to monitor patient status ANU RAMOS PT Dec 14, 2020 07:49
[2020-12-14] MEDS: DexMEDEtomidine 250 ML DRIP 250 ML IV SCH ×2 (08:11→18:11)
[2020-12-14] MEDS: PANTOPRAZOLE 40 MG (PROTONIX) VIAL IV SCH (08:11)
[2020-12-14] MEDS: NYSTATIN CREAM (MYCOSTATIN) 30 GM TUBE TP SCH ×3 (08:49→19:30)
[2020-12-14] MEDS: CISATRACURIUM DRIP 250 ML IV SCH ×3 (08:49→21:27)
[2020-12-14] MEDS: MICONAZOLE 2% POWDER (DESENEX AF) 90 GM TOP SCH ×2 (08:50→19:29)
[2020-12-14] MEDS: SENNA W/DOCUSATE (SENOKOT S) TABLET PO SCH ×2 (08:50→19:45)
[2020-12-14] MEDS: polyethylene glycoL POWDER 17 GM (MIRALAX) PACK PO SCH ×2 (08:50→19:45)
[2020-12-14] MEDS: LACRI-LUBE OPTHALMIC OINT 3.5 GM TUBE OU SCH ×3 (09:52→19:29)
[2020-12-14 10:21] VITALS: BP 118/59
--- NOTE | 2020-12-14 10:23 | Tele-ICU Progress Note ---
Subjective Date Seen by a Provider: Dec 14, 2020 Time Seen by a Provider: 09:25 Subjective/Events-last exam This virtual visit was conducted using real time audio/video. Thank you for asking us to see this patient for respiratory insufficiency and distress due to Covid pna with need for mechanical ventilation.. HPC: Recent events: 100%/12: 92%. ROS: limited by patient's clinical condition, sedated on vent. PE: Obese, appears comfortable. Sedated. VSS O2 92% sat on 100%/+12 HEENT: No obvious masses, adenopathy or JVD. Chest: Coarse BS. CV: RRR S1 S2 No murmur or added sounds. Abd: Non-tender. Bowel sounds Y . : Unremarkable. Gaston Y. TRANSPORTATION ECONOMICS TEACHER/psychiatric: No obvious focal findings. Extremities: edema with weeping. Capillary refill < 3 seconds. Results: Elevated BUN 51, Creat 3.4. Decreased plts 84K, Alb 1.7. AB.17/86/97. A/P: Respiratory failure with acidosis, permissive hypercapnia: Wean FiO2 as umang. Available chart/ vitals / labs / images reviewed. Video assessment done using teleICU camera, rest of exam as per RN. Critical Care: critically ill patient. May need transfer to OSH for HD. Lovenox held due to BEBETO. Agree with hospitalist who recommends comfort care status. Discussed with RN Angella. Asked RN to reach out to eICU if any questions or concerns later. Time spent with patient/coordination of care with other health professionals (mins): 22. Sepsis Event Evaluation Height, Weight, BMI Height: '" Weight: lbs. oz. kg; 34.90 BMI Method: Exam Exam Patient acknowledged, consented, and participated in this virtual visit which was conducted using real time audio/video Vital Signs Date Time Temp Pulse Resp B/P (MAP) Pulse Ox O2 Delivery O2 Flow Rate FiO2 12/14/20 09:00 75 9 93 Mechanical Ventilator 100.00 12/14/20 08:51 Mechanical Ventilator 100.00 12/14/20 08:11 70 111/53 12/14/20 08:00 71 96 Mechanical Ventilator 100.00 12/14/20 07:55 36.1 12/14/20 07:00 73 12/14/20 07:00 75 96 Mechanical Ventilator 100.00 12/14/20 06:28 74 37 96 90 12/14/20 06:00 75 96 Mechanical Ventilator 100.00 12/14/20 05:00 82 96 Mechanical Ventilator 100.00 12/14/20 04:55 81 12/14/20 04:00 96 Mechanical Ventilator 100 12/14/20 04:00 85 96 Mechanical Ventilator 100.00 12/14/20 04:00 36.1 96 Mechanical Ventilator 100.00 12/14/20 03:00 84 95 Mechanical Ventilator 90.00 12/14/20 02:07 81 34 94 90 12/14/20 02:00 84 96 Mechanical Ventilator 90.00 12/14/20 01:00 87 19 91 Mechanical Ventilator 100.00 12/14/20 01:00 87 12/14/20 00:00 89 15 91 Mechanical Ventilator 100.00 12/14/20 00:00 36.0 95 Mechanical Ventilator 100.00 12/13/20 23:59 94 Mechanical Ventilator 100 12/13/20 23:00 87 93 Mechanical Ventilator 100.00 12/13/20 22:19 88 12/13/20 22:13 92 34 92 100 12/13/20 22:00 77 90 Mechanical Ventilator 100.00 12/13/20 21:00 90 92 Mechanical Ventilator 100.00 12/13/20 20:00 89 91 Mechanical Ventilator 100.00 12/13/20 20:00 91 Mechanical Ventilator 100 12/13/20 19:42 34.7 12/13/20 19:00 84 89 Mechanical Ventilator 100.00 12/13/20 19:00 84 12/13/20 18:42 93 34 88 100 12/13/20 18:37 87 119/63 12/13/20 18:00 87 94 Mechanical Ventilator 100.00 12/13/20 17:00 90 91 Mechanical Ventilator 100.00 12/13/20 16:00 91 93 Mechanical Ventilator 100.00 12/13/20 16:00 91 Mechanical Ventilator 100 12/13/20 15:41 34.4 12/13/20 15:00 89 91 Mechanical Ventilator 100.00 12/13/20 14:33 89 34 93 100 12/13/20 14:00 92 96 Mechanical Ventilator 100.00 12/13/20 13:00 93 96 Mechanical Ventilator 100.00 12/13/20 13:00 92 8/12/21 12:00 95 95 Mechanical Ventilator 100.00 12/13/20 12:00 91 Mechanical Ventilator 100 12/13/20 11:49 35.7 12/13/20 11:00 93 96 Mechanical Ventilator 100.00 I & O 12/14/20 06:59 Intake Total 4222 ml Output Total 1777 ml Balance 2445 ml Height & Weight Height: '" Weight: lbs. oz. kg; 34.90 BMI Method: General Appearance: No Apparent Distress, Chronically ill, Other (Intubated and sedated) HEENT: PERRL/EOMI, Normal ENT Inspection, Pharynx Normal, Moist Mucous Membranes Neck: Full Range of Motion, Normal Inspection, Non Tender Respiratory: Decreased Breath Sounds Cardiovascular: Regular Rate, Rhythm Capillary Refill: Less Than 3 Seconds Peripheral Pulses: 1+ Dorsalis Pedis (R), 1+ Left Dors-Pedis (L) (see free text) Gastrointestinal: normal bowel sounds, non tender, soft (has midlinte) Extremity: Normal Inspection, Non Tender, No Pedal Edema, Other (has left midline, site ok) Neurologic/Psychiatric: Alert, Oriented x3 Skin: Normal Color, Warm/Dry Lymphatic: No Adenopathy Results Lab Laboratory Tests 12/13/20 03:30 12/13/20 15:30 12/13/20 20:45 12/13/20 23:59 12/14/20 03:38 Assessment/Plan Assessment/Plan See free text. Critical Care: Ventilator Management Time spent on discussion(mins): 0 Diagnosis/Problems Diagnosis/Problems (1) Obesity Status: Chronic (2) Pneumonia due to COVID-19 virus Status: Acute (3) Acute respiratory failure due to COVID-19 Status: Acute ARMOND MOODY MD Dec 14, 2020 10:23
--- NOTE | 2020-12-14 12:20 | Progress Note - Hospitalist ---
Subjective HPI/CC On Admission Date Seen by Provider: Dec 14, 2020 Time Seen by Provider: 11:00 Chief complaint: COVID-19 pneumonia with sepsis History present illness: This is a 60-year-old white male who was diagnosed with Covid 9 days ago who presented to the ER with shortness of breath fever and lethargy. Patient was found to have hypotension responded to aggressive IV fluids and placed on BiPAP for hypoxia. Currently it is difficult to communicate due to BiPAP. We will initiate IV antibiotics and closely monitor since he is high risk for decompensation. Subjective/Events-last exam Updated lead ethics committee leader on case in-depth Futile care confirmed Updated niece who is a Pulmo/security services specialist in [place] Dr Jaimes will review the case and will document her opinion. Terminal extubation indicated Objective Exam Vital Signs Vital Signs Date Time Temp Pulse Resp B/P (MAP) Pulse Ox O2 Delivery O2 Flow Rate FiO2 12/14/20 12:00 74 94 Mechanical Ventilator 100.00 12/14/20 11:45 36.8 12/14/20 10:21 34 100 Capillary Refill : Less Than 3 Seconds General Appearance: Chronically ill, Obese, Other (sedated on vent) Results/Procedures Lab Laboratory Tests 12/13/20 15:30 12/13/20 20:45 12/13/20 23:59 12/14/20 03:38 Patient resulted labs reviewed. Imaging: Reviewed Imaging Report Assessment/Plan Assessment and Plan Assess & Plan/Chief Complaint Assessment: Acute hypoxic respiratory failure COVID-19 pneumonia New onset atrial fibrillation with rapid ventricular response Hypotension requiring pressor therapy Sepsis Bacterial pneumonia Hypothyroidism DJD Plan: BiPAP Supportive care Monitor closely 12/07/2020: Maintain intubation [place] has a bed bit not stable yet 11/27/20: Monitor ABG Monitor closely 11/28/2020: Vapotherm and BiPAP Monitor closely 11/29/2020: Slow recovery Guarded prognosis Still at risk for intubation 12/08/2020: Supportive care Updated family Guarded prognosis 12/09/2020: Monitor closely Prognosis guarded 12/10/2020: Atrial fibrillation with rapid ventricular response management Prognosis guarded 12/11/2020: Supportive care DNR Poor prognosis 12/12/2020: Supportive care Needs comfort care and terminal extubation 12/13/2020: Ethics committee consult Terminal condition 8/13/21: Terminal extubation indicated Ethics committee consulted Dr Jaimes to provide second opinion Futile care Critical Care Ventilator Management CARISSA MARTINS DO Dec 14, 2020 12:20
--- NOTE | 2020-12-14 12:40 | Progress Note ---
NOE GOLD MED STUDENT 12/14/20 1240: Progress Note Armand Mcknight is a 60 year old white male show was admitted on 11-26-20 with SOB, fever, and malaise who was diagnosed with COVID-19 several days prior. He was admitted for acute hypoxic respiratory failure, COVID-19 PNA, hypotension, and sepsis. PMH is significant for obesity, DJD, and hypothyroidism. The patient had presented to an outpatient clinic to receive regeneron, but there he was found to be hypotensive and hypoxic, thus he was sent to the ED. In the ED his pressures were 80's/50's and sat's mid 80's initially. He was admitted to ICU and has been maintained on vapotherm with BIPAP intermittently. He had received multiple courses of antibiotics as well as decadron ,remdesivir, and actemra. Due to his worsening respiratory status and having maxed out Vapotherm and not doing well on BIPAP, the decision to intubate him was made on 12-06-20. He has remained intubated ever since. On 12-10 he went into afib rvr and was placed on an amio gtt. He converted and this has been off since converting. While intubated his oxygen requirements had dramatically gone up starting on 12-11, he had been bumped from 60% FIO2 to 100% and has remained there since. He has been on multiple pressors for hypotension on and off. Propofol has been discontinued and he is currently receiving precedex, versed, and fentanyl. He is paralyzed with cisat. He is requiring neosynephrine today. He also is on a lasix gtt and has been getting sodium bicarb. His ABG's haven been consistently poor over the last week and he remains acidotic and hypercapneic. Due to ARDS he's been leroy ntained on relatively high PEEP and low TV and high RR. He is no longer able to tolerate any sort of repositioning as the STONE SPLITTER reports that he desat's into the 40's and 50's and takes about 10 minutes to recover. His renal failure is worsening daily and his creatinine is now 3.40 as of today. He's in multiorgan failure and Ethics has been consulted and the family has been frequently updated on the patients condition daily. Due to his extremely poor prognosis the decision to terminally extubate has been made. LUZ ELENA MARTINS DO 12/15/20 0618: Supervisory-Addendum Brief Verification & Attestation Participated in pt care: history, MDM, physical Personally performed: exam, history, MDM, supervision of care Care discussed with: Medical Student Procedures: n/a Results interpretation: Verified all documentation Verification and Attestation of Medical Student E/M Service A medical student performed and documented this service in my presence. I reviewed and verified all information documented by the medical student and made modifications to such information, when appropriate. I personally performed the physical exam and medical decision making. Luz Elena Martins, Dec 15, 2020,06:17 NOE GOLD MED STUDENT Dec 14, 2020 12:40 LUZ ELENA MARTINS DO Dec 15, 2020 06:18
[2020-12-14] MEDS: MIDAZOLAM DRIP PRE-MIX 100 ML IV SCH (14:16)
[2020-12-14 14:41] VITALS: BP 126/62
[2020-12-14 15:21] LABS: POTASSIUM 3.9 MMOL/L (3.6-5.0)
[2020-12-14 15:27] LABS: CREATININE SERUM 3.48 MG/DL (0.60-1.30)
--- NOTE | 2020-12-14 15:50 | Progress Note ---
Progress Note I have been asked to review patient's chart by attending physician. Pt is a 60yoM who was admitted on 11/26 due to hypoxia. He presented to the hospital on day 9 of COVID symptoms after being found to be hypoxic and hy potensive on arrival to the [facility] and was referred to the ER. His oxygen saturation was 86% on room air and BP was 80/50s. He was admitted for treatment of acute hypoxic respiratory failure on BiPAP and started on Remdesivir and Decadron. TeleICU and the hospitalist have been managing his care throughout this admission. Despite aggressive treatments with remdesivir, decadron, antibiotics, and Actemra he has continued to worsen. He has developed ARDS due to COVID and had increasing need for ventilatory support. I have reviewed his imaging and he has progressive severe bilateral lobe infiltrates on 12/12. He has increased his ventilatory settings to 100% FiO2, with a PEEP of 14, TV of 340, and rate of 34. With these settings his ABG showed a persistent respiratory acidosis with a pH of 7.17 CO2 of 86 and PaO2 of 97. I discussed these settings with the printing table hand managing his ventilator care who states due to his hemodynamic instability he cannot make any further adjustments. He remains on a Nimbex gtt. He continues to prone though has significant difficulty with this per nursing report. Per review of the nursing notes any movement, even for a flexiseal placement, he will desat to the 40-50s and require manual bagging to get his sats back up to above 90. At times this can take 10-15 minutes. Despite 18 days of maximum medical intervention he has worsened. He has developed acute renal failure over the past week. His creatinine on 12/07 was 0.87 and it up to 3.48 today. He had developed a metabolic acidosis though that has been management with a Bicarb gtt. His bicarb has improved and he remains on the bicarb gtt as his pH has been 7.1-7.2. He has also required hemodynamic support with vasopressors and is currently on a phenylephrine gtt. His urine output has started to diminish as well. I spoke with his nurse and he has made 290mL of urine since 5am (over 11 hours). His platelets have started to drop as well. They were 207 on 11/26 and were stable in 200s through 12/08. Over the last week they have dropped to 84. His albumin is 1.7 from 12/12 down from 3.3 on 11/26. He has been receiving Pulm[employer] feeds per dietary recommendations as he tolerates it. He has begun to third space fluid per report from Dr Nicole and Dr Negro. He is on a lasix gtt and cumulative throughout his 18 day stay here he is only 1500mL positive. His documented weight gain though is roughly 30kg though, most of this over the last week. In summary it appears that he had continued to decline and require more invasive means of support to sustain his life. I anticipate that given his decline over the last week and his hemodynamic instability with movement precluding transfer to facility capable of ECMO or HD he will from complications of COVID19. He has appropriately been made a DNR. I would agree with the recommendations for comfort care as previously recommended by Dr Nicole and Dr Negro who are more acutely aware of his condition. NATALIA CASILLAS MD Dec 14, 2020 15:50
[2020-12-14] MEDS: FUROSEMIDE INJECTION 120 MG in D5W 100 ML IVPB 100 ML IV SCH (18:09)
[2020-12-14 19:08] VITALS: BP 112/57
[2020-12-14] MEDS: MELATONIN 3 MG TABLET PO SCH (19:45)
[2020-12-14] MEDS: PHENYLEPHRINE INJECTION 40 MG in NS (IVPB) 250 ML IV SCH (21:28)
[2020-12-14 22:57] VITALS: BP 107/53
[2020-12-14 23:59] LABS: CALCIUM 6.1 MG/DL (8.5-10.1); CREATININE SERUM 3.5 MG/DL (0.60-1.30)
[2020-12-15] MEDS: inSUlin ASPART (NovoLOG) 1 UNIT/0.01 ML (CHARGE PER UNIT) SC SCH ×4 (00:08→17:44)
[2020-12-15] MEDS: fentaNYL DRIP PRE-MIX 250 ML IV SCH ×5 (00:43→20:35)
[2020-12-15] MEDS: SODIUM BICARBONATE 8.4% VIAL 150 MEQ in D5W 1000 ML IV SOLUTION 1,000 ML IV SCH ×3 (00:47→23:56)
[2020-12-15 02:51] VITALS: BP 124/59
[2020-12-15] MEDS: RT-ALBUTEROL HFA 8.5 GM INHALER IH SCH ×6 (02:51→23:36)
[2020-12-15 04:03] LABS: BASOPHILS % (AUTO) 0 % (0-10); EOSINOPHILS # (AUTO) 0.1 10^3/uL (0.0-0.3); EOSINOPHILS % (AUTO) 1 % (0-10); MEAN CORPUSCULAR VOLUME 90 fL (80-99); MONOCYTES % (AUTO) 5 % (0-12)
[2020-12-15 04:05] LABS: HEMATOCRIT 29 % (40-54); LYMPHOCYTES # (AUTO) 0.6 10^3/uL (1.0-4.0); LYMPHOCYTES % (AUTO) 4 % (12-44); MEAN CORPUSCULAR HEMOGLOBIN 28 pg (25-34); MEAN CORPUSCULAR HGB CONC 31 g/dL (32-36); MEAN PLATELET VOLUME 10.7 fL (9.0-12.2); MONOCYTES # (AUTO) 0.8 10^3/uL (0.0-1.0); NEUTROPHILS # (AUTO) 12.9 10^3/uL (1.8-7.8); NEUTROPHILS % (AUTO) 88 % (42-75); PLATELET COUNT 83 10^3/uL (130-400); WHITE BLOOD COUNT 14.6 10^3/uL (4.3-11.0)
[2020-12-15 04:09] LABS: ABG BASE EXCESS 4.7 MMOL/L (-2.5-2.5); ABG OXYGEN SATURATION 98 % (94-100); ABG PCO2 64 MMHG (35-45); ABG PO2 89 MMHG (79-93); ABG TCO2 33.1 MMOL/L (21.0-31.0); ALLENS TEST ARTLINE; INSPIRED O2 100%; VENTILATOR YES
[2020-12-15 04:10] LABS: PATIENT TEMP 37
[2020-12-15 04:29] LABS: CALCIUM 6.2 MG/DL (8.5-10.1); CREATININE SERUM 3.49 MG/DL (0.60-1.30); MAGNESIUM 2.4 MG/DL (1.6-2.4); PHOSPHORUS 5.5 MG/DL (2.3-4.7); POTASSIUM 3.9 MMOL/L (3.6-5.0)
[2020-12-15] MEDS: CISATRACURIUM DRIP 250 ML IV SCH ×4 (05:00→19:05)
[2020-12-15] MEDS: DexMEDEtomidine 250 ML DRIP 250 ML IV SCH ×3 (05:02→23:46)
[2020-12-15] MEDS: MEROPENEM 500 MG/SWFI 10 ML IV PUSH IV SCH ×6 (05:02→20:33)
[2020-12-15] MEDS: HYDROCORTISONE 100 MG/2 ML (Solu-CORTEF) VIAL IV SCH ×3 (05:09→20:33)
[2020-12-15] MEDS: POTASSIUM CL 10MEQ/50ML IVPB 50 ML IV SCH (05:17)
[2020-12-15] MEDS: KCL 20 MEQ TAB (K-DUR) PO SCH (05:18)
[2020-12-15] MEDS: MAGNESIUM 1 GM/100 ML IVPB 100 ML IV SCH (05:18)
[2020-12-15 07:53] VITALS: BP 114/50
[2020-12-15] MEDS: NOREPINEPHRINE 8 MG/250 ML 250 ML IV SCH ×2 (08:51→23:46)
[2020-12-15] MEDS: LACRI-LUBE OPTHALMIC OINT 3.5 GM TUBE OU SCH ×3 (08:51→20:36)
[2020-12-15] MEDS: polyethylene glycoL POWDER 17 GM (MIRALAX) PACK PO SCH ×2 (08:51→20:36)
[2020-12-15] MEDS: PANTOPRAZOLE 40 MG (PROTONIX) VIAL IV SCH (08:51)
[2020-12-15] MEDS: NYSTATIN CREAM (MYCOSTATIN) 30 GM TUBE TP SCH ×3 (08:51→20:36)
[2020-12-15] MEDS: MICONAZOLE 2% POWDER (DESENEX AF) 90 GM TOP SCH ×2 (08:51→20:37)
[2020-12-15] MEDS: SENNA W/DOCUSATE (SENOKOT S) TABLET PO SCH ×2 (08:52→20:36)
[2020-12-15] MEDS: MIDAZOLAM DRIP PRE-MIX 100 ML IV SCH (08:56)
--- NOTE | 2020-12-15 09:02 | Tele-ICU Progress Note ---
Progress Note video rounds completed 60 y/o male intubate with Covid PNA Now DNR Has develope worsening renal funstion PE: Pulse 73 BP: 153/66 Pulse ox: 93% Labs: AB.30/64/89/31 WBC: 14.6 hgb: 9 plts: 83,000 Na: 136 K: 3.9 Cl" 98 BUN: 60 Creat: 3.49 Glu: 106 IMP: covid PNA on vent: rate 34 TV: 340 Stable and sedated. Low plts: lovenox on hold Continue supportive care on vent Focused Exam Sepsis Stage: Sepsis Height, Weight, BMI Height: '" Weight: lbs. oz. kg; 34.90 BMI Method: VENKATESH LANDAVERDE MD Dec 15, 2020 09:02
--- NOTE | 2020-12-15 11:21 | Tele-ICU Progress Note ---
Progress Note worsening hypoxemia Will increase PEEP to 20 Check ABG and CXR BP is 150/62 Focused Exam Height, Weight, BMI Height: '" Weight: lbs. oz. kg; 34.90 BMI Method: VENKATESH LANDAVERDE MD Dec 15, 2020 11:21
[2020-12-15 11:31] VITALS: BP 145/67
--- NOTE | 2020-12-15 11:47 | Progress Note - Hospitalist ---
Subjective HPI/CC On Admission Date Seen by Provider: Dec 15, 2020 Time Seen by Provider: 12:30 Chief complaint: COVID-19 pneumonia with sepsis History present illness: This is a 60-year-old white male who was diagnosed with Covid 9 days ago who presented to the ER with shortness of breath fever and lethargy. Patient was found to have hypotension responded to aggressive IV fluids and placed on BiPAP for hypoxia. Currently it is difficult to communicate due to BiPAP. We will initiate IV antibiotics and closely monitor since he is high risk for decompensation. Subjective/Events-last exam No significant changes Desaturation is noted with any type of movement Needs comfort care protocol Providers are updating family and they do not seem to understand the futility of the care provided Objective Exam Vital Signs Vital Signs Date Time Temp Pulse Resp B/P (MAP) Pulse Ox O2 Delivery O2 Flow Rate FiO2 12/15/20 14:16 72 34 96 90 12/15/20 14:06 145/67 12/15/20 14:00 Mechanical Ventilator 100.00 12/15/20 00:00 35.6 Capillary Refill : Less Than 3 Seconds General Appearance: Chronically ill, Obese, Other (Edematous) Respiratory: Decreased Breath Sounds Cardiovascular: Regular Rate, Rhythm Results/Procedures Lab Laboratory Tests 12/14/20 23:15 12/15/20 03:40 Patient resulted labs reviewed. Imaging: Reviewed Imaging Report Assessment/Plan Assessment and Plan Assess & Plan/Chief Complaint Assessment: Acute hypoxic respiratory failure COVID-19 pneumonia New onset atrial fibrillation with rapid ventricular response Hypotension requiring pressor therapy Sepsis Bacterial pneumonia Hypothyroidism DJD Plan: BiPAP Supportive care Monitor closely 12/07/2020: Maintain intubation [place] has a bed bit not stable yet 11/27/20: Monitor ABG Monitor closely 11/28/2020: Vapotherm and BiPAP Monitor closely 11/29/2020: Slow recovery Guarded prognosis Still at risk for intubation 12/08/2020: Supportive care Updated family Guarded prognosis 12/09/2020: Monitor closely Prognosis guarded 12/10/2020: Atrial fibrillation with rapid ventricular response management Prognosis guarded 12/11/2020: Supportive care DNR Poor prognosis 12/12/2020: Supportive care Needs comfort care and terminal extubation 12/13/2020: Ethics committee consult Terminal condition 12/14/20: Terminal extubation indicated Ethics committee consulted Dr Jaimes to provide second opinion Futile care 12/15/2020: Ethics lead could not provide any assistance other than allowing the time for family to adjust to the fact of declining loved one Cardiac and respiratory arrest inevitable Critical Care Ventilator Management CARISSA MARTINS DO Dec 15, 2020 11:47
[2020-12-15 12:37] LABS: ABG BASE EXCESS 3.2 MMOL/L (-2.5-2.5); ABG OXYGEN SATURATION 99 % (94-100); ABG PCO2 65 MMHG (35-45); ABG PO2 118 MMHG (79-93); ABG TCO2 31.8 MMOL/L (21.0-31.0)
[2020-12-15 12:38] LABS: ABG PH 7.28 (7.37-7.43); INSPIRED O2 100%; PATIENT TEMP 35.6; VENTILATOR NO
--- NOTE | 2020-12-15 13:02 | Diagnostic Imaging Report ---
EXAMINATION: Chest 1 view. HISTORY: Covid pneumonia, hypoxemia. COMPARISON: 12/12/2020 FINDINGS: Heart borders are obscured. There is stable diffuse opacification of both lungs. No obvious pneumothorax. Medical support lines and tubes are unchanged. The osseous structures are intact. IMPRESSION: 1. Stable diffuse opacification of both lungs compatible with history of Covid 19 pneumonia. Dictated by: Dictated on workstation # [id number]
[2020-12-15 14:16] VITALS: BP 135/65
--- NOTE | 2020-12-15 14:29 | Tele-ICU Progress Note ---
Progress Note pH 7.28 with PCO2 of 65 Will Increase TV to 400 Focused Exam Height, Weight, BMI Height: '" Weight: lbs. oz. kg; 34.90 BMI Method: VENKATESH LANDAVERDE MD Dec 15, 2020 14:29
[2020-12-15] MEDS: FUROSEMIDE INJECTION 120 MG in D5W 100 ML IVPB 100 ML IV SCH (16:45)
[2020-12-15 17:02] LABS: POTASSIUM 3.7 MMOL/L (3.6-5.0)
[2020-12-15 17:03] LABS: CALCIUM 6.3 MG/DL (8.5-10.1)
[2020-12-15 17:07] LABS: CREATININE SERUM 3.61 MG/DL (0.60-1.30)
[2020-12-15 18:42] VITALS: BP 143/70
[2020-12-15] MEDS: MELATONIN 3 MG TABLET PO SCH (20:36)
[2020-12-15] MEDS ORDERED: NS IV 1000 ML 1,000 ML ONE (22:18)
[2020-12-15] MEDS ORDERED: SODIUM BICARB 8.4% 50 MEQ/50 ML (ABBOTT) SYR ONE ×2 (22:19→22:20)
[2020-12-15] MEDS ORDERED: D5W 1000 ML IV SOLUTION 1,000 ML ONE (22:22)
[2020-12-15 23:36] VITALS: BP 110/58
[2020-12-16 00:15] LABS: POTASSIUM 4.1 MMOL/L (3.6-5.0)
[2020-12-16 00:16] LABS: CALCIUM 6.3 MG/DL (8.5-10.1)
[2020-12-16 00:20] LABS: CREATININE SERUM 3.73 MG/DL (0.60-1.30)
[2020-12-16] MEDS: fentaNYL DRIP PRE-MIX 250 ML IV SCH ×3 (01:01→13:05)
[2020-12-16] MEDS: CISATRACURIUM DRIP 250 ML IV SCH ×2 (01:01→09:40)
[2020-12-16] MEDS: inSUlin ASPART (NovoLOG) 1 UNIT/0.01 ML (CHARGE PER UNIT) SC SCH ×3 (01:17→13:05)
[2020-12-16] MEDS: RT-ALBUTEROL HFA 8.5 GM INHALER IH SCH ×3 (02:46→10:46)
[2020-12-16 02:47] VITALS: BP 150/61
[2020-12-16] MEDS ORDERED: NS (IVPB) 250 ML ONE (05:10)
[2020-12-16] MEDS ORDERED: PHENYLEPHRINE INJ 10 MG/ML (FOR DRIP KITS ONLY) ONE ×2 (05:10→05:50)
[2020-12-16] MEDS: PHENYLEPHRINE INJECTION 40 MG in NS (IVPB) 250 ML IV SCH ×2 (05:52→11:36)
[2020-12-16] MEDS: HYDROCORTISONE 100 MG/2 ML (Solu-CORTEF) VIAL IV SCH ×2 (05:54→13:03)
[2020-12-16] MEDS: MEROPENEM 500 MG/SWFI 10 ML IV PUSH IV SCH ×4 (05:54→13:03)
[2020-12-16] MEDS: MIDAZOLAM DRIP PRE-MIX 100 ML IV SCH (06:02)
[2020-12-16 06:16] LABS: BASOPHILS # (AUTO) 0.1 10^3/uL (0.0-0.1); BASOPHILS % (AUTO) 0 % (0-10); EOSINOPHILS # (AUTO) 0.1 10^3/uL (0.0-0.3); EOSINOPHILS % (AUTO) 1 % (0-10); HEMATOCRIT 35 % (40-54); HEMOGLOBIN 10.1 g/dL (13.3-17.7); LYMPHOCYTES % (AUTO) 5 % (12-44); MEAN CORPUSCULAR HEMOGLOBIN 28 pg (25-34); MEAN CORPUSCULAR HGB CONC 29 g/dL (32-36); MEAN CORPUSCULAR VOLUME 96 fL (80-99); MEAN PLATELET VOLUME 10.5 fL (9.0-12.2); MONOCYTES % (AUTO) 5 % (0-12); NEUTROPHILS % (AUTO) 85 % (42-75); PLATELET COUNT 146 10^3/uL (130-400); WHITE BLOOD COUNT 21.1 10^3/uL (4.3-11.0)
[2020-12-16 06:30] LABS: POTASSIUM 4.6 MMOL/L (3.6-5.0)
[2020-12-16 06:31] LABS: CALCIUM 6.6 MG/DL (8.5-10.1)
[2020-12-16 06:35] LABS: PHOSPHORUS 8.8 MG/DL (2.3-4.7)
--- NOTE | 2020-12-16 06:35 | Progress Note - Hospitalist ---
Subjective HPI/CC On Admission Date Seen by Provider: Dec 16, 2020 Time Seen by Provider: 11:00 Chief complaint: COVID-19 pneumonia with sepsis History present illness: This is a 60-year-old white male who was diagnosed with Covid 9 days ago who presented to the ER with shortness of breath fever and lethargy. Patient was found to have hypotension responded to aggressive IV fluids and placed on BiPAP for hypoxia. Currently it is difficult to communicate due to BiPAP. We will initiate IV antibiotics and closely monitor since he is high risk for decompensation. Subjective/Events-last exam See discharge summary Objective Exam Vital Signs Vital Signs Date Time Temp Pulse Resp B/P (MAP) Pulse Ox O2 Delivery O2 Flow Rate FiO2 12/16/20 14:00 35.0 87 33 91 Mechanical Ventilator 95.00 12/16/20 12:15 100 Capillary Refill : Less Than 3 Seconds General Appearance: Chronically ill Results/Procedures Lab Laboratory Tests 12/16/20 06:02 12/16/20 12:00 Patient resulted labs reviewed. Imaging: Reviewed Imaging Report Assessment/Plan Assessment and Plan Assess & Plan/Chief Complaint Assessment: Acute hypoxic respiratory failure COVID-19 pneumonia New onset atrial fibrillation with rapid ventricular response Hypotension requiring pressor therapy Sepsis Bacterial pneumonia Hypothyroidism DJD Plan: BiPAP Supportive care Monitor closely 12/07/2020: Maintain intubation [place] has a bed bit not stable yet 11/27/20: Monitor ABG Monitor closely 11/28/2020: Vapotherm and BiPAP Monitor closely 11/29/2020: Slow recovery Guarded prognosis Still at risk for intubation 12/08/2020: Supportive care Updated family Guarded prognosis 12/09/2020: Monitor closely Prognosis guarded 12/10/2020: Atrial fibrillation with rapid ventricular response management Prognosis guarded 12/11/2020: Supportive care DNR Poor prognosis 12/12/2020: Supportive care Needs comfort care and terminal extubation 12/13/2020: Ethics committee consult Terminal condition 12/14/20: Terminal extubation indicated Ethics committee consulted Dr Jaimes to provide second opinion Futile care 12/15/2020: Ethics lead could not provide any assistance other than allowing the time for family to adjust to the fact of declining loved one Cardiac and respiratory arrest inevitable Critical Care Ventilator Management CARISSA MARTINS DO Dec 16, 2020 06:35
[2020-12-16 06:36] LABS: CREATININE SERUM 4.01 MG/DL (0.60-1.30)
[2020-12-16 06:38] LABS: MAGNESIUM 2.5 MG/DL (1.6-2.4)
[2020-12-16 06:48] LABS: ABG OXYGEN SATURATION 94 % (94-100); ABG PO2 85 MMHG (79-93)
[2020-12-16 06:57] LABS: ANISOCYTOSIS SLIGHT; BAND NEUTROPHILS 6 %; EOSINOPHILS % (MANUAL) 1 %; LYMPHOCYTES % (MANUAL) 4 %; MONOCYTES % (MANUAL) 5 %; NEUTROPHILS % (MANUAL) 84 %
[2020-12-16 07:05] LABS: ABG PH 6.93 (7.37-7.43); ALLENS TEST YES-POS; PATIENT TEMP 35.5; VENTILATOR YES
[2020-12-16] MEDS: POTASSIUM CL 10MEQ/50ML IVPB 50 ML IV SCH (07:05)
[2020-12-16] MEDS: MAGNESIUM 1 GM/100 ML IVPB 100 ML IV SCH (07:05)
[2020-12-16 07:06] LABS: INSPIRED O2 95%
[2020-12-16] MEDS: KCL 20 MEQ TAB (K-DUR) PO SCH (07:06)
[2020-12-16 07:24] VITALS: BP 95/53
[2020-12-16 08:05] LABS: ABG BASE EXCESS -0.1 MMOL/L (-2.5-2.5); ABG OXYGEN SATURATION 92 % (94-100); ABG PO2 61 MMHG (79-93)
[2020-12-16 08:08] LABS: ABG PCO2 102 MMHG (35-45); ABG PH 7.08 (7.37-7.43); ALLENS TEST POS
[2020-12-16 08:09] LABS: INSPIRED O2 80%; PATIENT TEMP 35.3; VENTILATOR YES
[2020-12-16] MEDS: MICONAZOLE 2% POWDER (DESENEX AF) 90 GM TOP SCH (09:33)
[2020-12-16] MEDS: PANTOPRAZOLE 40 MG (PROTONIX) VIAL IV SCH (09:33)
[2020-12-16] MEDS: LACRI-LUBE OPTHALMIC OINT 3.5 GM TUBE OU SCH ×3 (09:34→13:06)
[2020-12-16] MEDS: polyethylene glycoL POWDER 17 GM (MIRALAX) PACK PO SCH (09:34)
[2020-12-16] MEDS: SENNA W/DOCUSATE (SENOKOT S) TABLET PO SCH (09:34)
[2020-12-16] MEDS: NYSTATIN CREAM (MYCOSTATIN) 30 GM TUBE TP SCH ×2 (09:34→13:06)
--- NOTE | 2020-12-16 09:55 | Tele-ICU Progress Note ---
Progress Note video rounds completed 60 y/o with covid PNa Intubated since 12/06 Vent: 34/340/80%/12 Ppresure: 45 worsening renal function with creatinine up to 4.01 today Pulse: 70 NSR BP: 148/71 O2 sat: 90% LABS: ab.09/102/61/30 Wbc: 21 Hgb: 10.1 Plts 146 Na 142 K" 4.6 Cl: 98 Bun 65 Creat: 4.01 IMP: worsening renal function will stop bicarb drip as role is not clearly defined Increase TV to 360 and rate to 36 may need to switch to volume control May need dialysis Focused Exam Height, Weight, BMI Height: '" Weight: lbs. oz. kg; 34.90 BMI Method: VENKATESH LANDAVERDE MD Dec 16, 2020 09:55
[2020-12-16] MEDS: DexMEDEtomidine 250 ML DRIP 250 ML IV SCH (10:41)
[2020-12-16 10:46] VITALS: BP 121/56
[2020-12-16 11:36] VITALS: BP 121/56
[2020-12-16 12:19] LABS: POTASSIUM 4.4 MMOL/L (3.6-5.0)
[2020-12-16 12:25] LABS: CREATININE SERUM 3.94 MG/DL (0.60-1.30)
[2020-12-16] MEDS: NOREPINEPHRINE 8 MG/250 ML 250 ML IV SCH (13:05)
[2020-12-16] MEDS: FUROSEMIDE INJECTION 120 MG in D5W 100 ML IVPB 100 ML IV SCH (13:31)
[2020-12-16] MEDS ORDERED: morphine INJ 4 MG/ML 1 ML (VIAL/SYRINGE) IV PRN (15:00)
[2020-12-16] MEDS ORDERED: morphine INJ 10 MG/ML 1ML (SYR OR VIAL) IVP PRN (15:00)
[2020-12-16] MEDS ORDERED: LORazepam INJ 2 MG/ML (ATIVAN) VIAL IVP NR (15:00)
--- NOTE | 2020-12-16 15:10 | Discharge Summary ---
Discharge Summary Hospital Course Was the Problem List Reviewed?: Yes Problems/Dx: (1) Obesity Status: Chronic (2) Pneumonia due to COVID-19 virus Status: Acute (3) Acute respiratory failure due to COVID-19 Status: Acute Hospital Course Date of Admission: Nov 26, 2020 at 13:57 Admission Diagnosis : Family Physician/Provider: [facility] Date of Discharge: 12/16/20 Discharge Diagnosis: COVID-19 pneumonia, multisystem organ failure, ventilator associated pneumonia, anasarca, acute kidney failure, A. fib with RVR Hospital Course: Patient had a very complicated 3-week hospital course he was admitted for 1 week and maintained on Vapotherm until he ultimately went into respiratory failure requiring intubation and had multiple complications including A. fib with RVR and ventilator associated pneumonia along with severe anasarca and acute kidney injury. Multiple conversations ensued with family regarding the need for comfort care due to futility and ethics committee was involved and nearly a week after patient was deemed meeting criteria for comfort care protocol family agreed for extubation and he shortly after. Labs and Pending Lab Test: Laboratory Tests 12/15/20 16:45: Sodium Level 141, Potassium Level 3.7, Chloride Level 98, Carbon Dioxide Level 28, Anion Gap 15H, Blood Urea Nitrogen 60H, Creatinine 3.61H, Estimat Glomerular Filtration Rate 17, BUN/Creatinine Ratio 17, Glucose Level 118H, Calcium Level 6.3L 12/15/20 17:14: Glucometer 113H 12/15/20 23:55: Sodium Level 141, Potassium Level 4.1, Chloride Level 98, Carbon Dioxide Level 28, Anion Gap 15H, Blood Urea Nitrogen 62H, Creatinine 3.73H, Estimat Glomerular Filtration Rate 17, BUN/Creatinine Ratio 17, Glucose Level 107H, Calcium Level 6.3L 12/16/20 06:02: Sodium Level 142, Potassium Level 4.6, Chloride Level 98, Carbon Dioxide Level 31, Anion Gap 13, Blood Urea Nitrogen 65H, Creatinine 4.01H, Estimat Glomerular Filtration Rate 15, BUN/Creatinine Ratio 16, Glucose Level 120H, Calcium Level 6.6L, White Blood Count 21.1H, Red Blood Count 3.60L, Hemoglobin 10.1L, Hematocrit 35L, Mean Corpuscular Volume 96, Mean Corpuscular Hemoglobin 28, Mean Corpuscular Hemoglobin Concent 29L, Red Cell Distribution Width 16.4H, Platelet Count 146, Mean Platelet Volume 10.5, Immature Granulocyte % (Auto) 4, Neutrophils (%) (Auto) 85H, Lymphocytes (%) (Auto) 5L, Monocytes (%) (Auto) 5, Eosinophils (%) (Auto) 1, Basophils (%) (Auto) 0, Neutrophils # (Auto) 18.0H, Lymphocytes # (Auto) 1.0, Monocytes # (Auto) 1.0, Eosinophils # (Auto) 0.1, Basophils # (Auto) 0.1, Immature Granulocyte # (Auto) 0.9H, Neutrophils % (Manual) 84, Lymphocytes % (Manual) 4, Monocytes % (Manual) 5, Eosinophils % (Manual) 1, Band Neutrophils 6, Basophilic Stippling SLIGHT, Anisocytosis SLIGHT, Phosphorus Level 8.8H, Magnesium Level 2.5H 12/16/20 06:40: Blood Gas Puncture Site RT RAD, Blood Gas Patient Temperature 35.5, Arterial Blood pH 6.93*L, Arterial Blood Partial Pressure CO2 , Arterial Blood Partial Pressure O2 85, Arterial Blood HCO3 , Arterial Blood Total CO2 , Arterial Blood Oxygen Saturation 94, Arterial Blood Base Excess , Azeem Test YES-POS, Blood Gas Ventilator Setting YES, Blood Gas Inspired Oxygen 95% 12/16/20 07:00: POC pH (Misc Panel) [Pending], POC Base Excess (Misc Panel) [Pending], POC pO2 (Misc Panel) 113H, POC pCO2 (Misc Panel) [Pending], POC HCO3 (Misc Panel) [Pending], POC Blood Gas Total CO2 Calc [Pending], Bedside Bl Gas O2 Saturation (Calc) [Pending], Bedside Lactic Acid 0.90 12/16/20 07:50: Blood Gas Puncture Site LEFT RADIAL, Blood Gas Patient Temperature 35.3, Arterial Blood pH 7.08*L, Arterial Blood Partial Pressure CO2 102*H, Arterial Blood Partial Pressure O2 61L, Arterial Blood HCO3 30H, Arterial Blood Total CO2 33.0H, Arterial Blood Oxygen Saturation 92L, Arterial Blood Base Excess -0.1, Azeem Test POS, Blood Gas Ventilator Setting YES, Blood Gas Inspired Oxygen 80% 12/16/20 11:10: Glucometer 94 12/16/20 12:00: Sodium Level 140, Potassium Level 4.4, Chloride Level 98, Carbon Dioxide Level 27, Anion Gap 15H, Blood Urea Nitrogen 67H, Creatinine 3.94H, Estimat Glomerular Filtration Rate 16, BUN/Creatinine Ratio 17, Glucose Level 109H, Calcium Level 7.0L Microbiology 12/08/20 Urine Culture - Final, Complete NO GROWTH 12/08/20 Blood Culture - Final, Complete No growth 12/03/20 Gram Stain - Final, Complete 12/03/20 Sputum Culture - Final, Complete Usual upper respiratory stephie Home Meds Active Reported Vitamin E (Vitamin E Acid Succinate) 100 Unit Tablet 100 Unit PO DAILY Fish Oil 1,200 mg Fish Oil (Fish Oil/Dha/Epa) 1 Each Capsule 1 Each PO DAILY Potassium Gluconate 99 Mg Tablet.er 99 Mg PO DAILY Vitamin D3 (Cholecalciferol (Vitamin D3)) 25 Mcg Capsule 25 Mcg PO DAILY Tadalafil 5 Mg Tablet 5 Mg PO DAILY Levothyroxine Sodium 25 Mcg Tablet 25 Mcg PO DAILY Benzonatate 100 Mg Capsule 200 Mg PO TID PRN Ondansetron Odt (Ondansetron) 4 Mg Tab.rapdis 4 Mg PO Q4H PRN Cefdinir 300 Mg Capsule 300 Mg PO BID FILLED 11-23-2020 #20/10 DAY SUPPLY Mucinex Dm ER 1,200-60 mg Tab (Guaifenesin/Dextromethorphan) 1 Each Tbmp.12hr 1 Each PO Q12H PRN Azithromycin 500 Mg Tablet 500 Mg PO DAILY FILLED 11-24-2020 #5/5 DAY SUPPLY Assessment/Pt Instructions Discharge Planning: <30 minutes discharge planning Discharge Physical Examination Vital Signs Vital Signs Date Time Temp Pulse Resp B/P (MAP) Pulse Ox O2 Delivery O2 Flow Rate FiO2 12/16/20 14:00 35.0 87 33 91 Mechanical Ventilator 95.00 12/16/20 10:46 85 Allergies: Coded Allergies: No Known Drug Allergies (Unverified , 11/23/20) Discharge Summary Date of Admission Nov 26, 2020 at 13:57 Date of Discharge Admission Diagnosis Assessment: Acute hypoxic respiratory failure COVID-19 pneumonia Hypotension Sepsis Bacterial pneumonia Hypothyroidism DJD Plan: BiPAP Supportive care Monitor closely Comfort Measures/ Time spent on discussion (min): 0 Discharge Diagnosis Assessment: Acute hypoxic respiratory failure COVID-19 pneumonia New onset atrial fibrillation with rapid ventricular response Hypotension requiring pressor therapy Sepsis Bacterial pneumonia Hypothyroidism DJD Plan: BiPAP Supportive care Monitor closely 12/07/2020: Maintain intubation [place] has a bed bit not stable yet 11/27/20: Monitor ABG Monitor closely 11/28/2020: Vapotherm and BiPAP Monitor closely 11/29/2020: Slow recovery Guarded prognosis Still at risk for intubation 12/08/2020: Supportive care Updated family Guarded prognosis 12/09/2020: Monitor closely Prognosis guarded 12/10/2020: Atrial fibrillation with rapid ventricular response management Prognosis guarded 12/11/2020: Supportive care DNR Poor prognosis 12/12/2020: Supportive care Needs comfort care and terminal extubation 12/13/2020: Ethics committee consult Terminal condition 12/14/20: Terminal extubation indicated Ethics committee consulted Dr Jaimes to provide second opinion Futile care 12/15/2020: Ethics lead could not provide any assistance other than allowing the time for family to adjust to the fact of declining loved one Cardiac and respiratory arrest inevitable (1) Obesity Status: Chronic (2) Pneumonia due to COVID-19 virus Status: Acute (3) Acute respiratory failure due to COVID-19 Status: Acute CARISSA MARTINS DO Dec 16, 2020 15:10
== END 2020-12-16 14:45 | disposition expired | DRG 870 ==
LOC: EDUNIT# 13:02 → ER 13:04 → ICU 13:57
PROVIDERS: ADMIT Internal Medicine; ATTEND Internal Medicine
PROC: 5A09557 Assistance with Respiratory Ventilation, Greater than 96 Consecutive Hours, Continuous Positive Airway Pressure (ICD-10-PCS; 2020-11-26)
PROC: XW033E5 Introduction of Remdesivir Anti-infective into Peripheral Vein, Percutaneous Approach, New Technology Group 5 (ICD-10-PCS; principal; 2020-12-06)
PROC: 5A1955Z Respiratory Ventilation, Greater than 96 Consecutive Hours (ICD-10-PCS; 2020-12-06)
PROC: 03HY32Z Insertion of Monitoring Device into Upper Artery, Percutaneous Approach (ICD-10-PCS; 2020-12-06)
PROC: 0BH17EZ Insertion of Endotracheal Airway into Trachea, Via Natural or Artificial Opening (ICD-10-PCS; 2020-12-06)
DX: A41.89 Other specified sepsis (principal); U07.1 COVID-19; J12.82 Pneumonia due to coronavirus disease 2019; J15.9 Unspecified bacterial pneumonia; J80 Acute respiratory distress syndrome; N17.9 Acute kidney failure, unspecified; E87.2 Acidosis; D68.69 Other thrombophilia; Z68.42 Body mass index [BMI] 45.0-49.9, adult; Z66 Do not resuscitate; Z51.5 Encounter for palliative care; E66.9 Obesity, unspecified; I48.91 Unspecified atrial fibrillation; I95.9 Hypotension, unspecified; M19.90 Unspecified osteoarthritis, unspecified site; E03.9 Hypothyroidism, unspecified; I46.9 Cardiac arrest, cause unspecified; Z87.891 Personal history of nicotine dependence; F41.9 Anxiety disorder, unspecified; D69.6 Thrombocytopenia, unspecified
CPT/HCPCS: 36410; 36415; 36569; 36600; 71045; 71275; 74018; 76700; 76937; 80048; 80053; 81000; 82040; 82805; 82947; 83605; 83735; 84100; 84145; 84478; 85007; 85025; 85027; 85379; 85384; 85610; 85730; 86141; 87040; 87070; 87088; 87205; 93005; 94003; 94640; 94660; 94799; 96374; 96375

== ENCOUNTER → 2020-11-26 | Outpatient (CLI) | payer BC ==
[~2020-11-26] MED LIST: AZIT500T PO; AZIT500T9 PO; BENZ-36 PO; BENZ100C18 PO; CASIRIVIMAB/IMDEVIMAB 1,200 MG in NS (IVPB) 250 ML IV ONE; CEFD300C3 PO; CHOL10007 PO; EPINEPHrine INJECTION 1 MG/ML AMP IM PRN; FISH1CAP15 PO; GUAI1TBM19 PO; LEVO25TA5 PO; ONDA4TAB11 PO; PANTOPRAZOLE 40 MG (PROTONIX) VIAL IV SCH; POTA99TA18 PO; TADA5TAB3 PO; VITA100T6 PO; diphenhydrAMINE 50 MG/ML INJ (BENADRYL) IV PRN
== END ==
LOC: INFUSION 12:43
PROVIDERS: ATTEND Emergency Medicine
DX: Z23 Encounter for immunization (principal); U07.1 COVID-19